=== PATIENT | female | born 1940 | race Caucasian/White ===

== ENCOUNTER → 2017-01-01 | Outpatient (CLI) | payer MEDICARE ==
[~2017-01-01] MED LIST: AC500T PO; AMIT10TA6 PO; DPAS20025 PO; FEXO180T PO; MTP100TCR PO; PNT40TEC PO; SMV10T PO; VERA240T98 PO
--- OUTSIDE RECORDS SUMMARY | 2017-01-01 16:04 | XMS REPORT | Continuity of Care Document ---
Author Author [facility] Organization [facility] Address Unknown Phone Unavailable Allergies Active Description Code Type Severity Reaction Onset Reported/Identified Relationship to Patient Clinical Status Yes No Known Drug Allergies [id number] Drug Allergy Unknown N/ A 06/08/2011 Medications Problems Date Dx Coded Attending Type Code Diagnosis Diagnosed By 06/11/2011 Ot 272.4 06/11/2011 Ot 401.9 06/11/2011 Ot 433.10 06/11/2011 Ot 434.91 06/11/2011 Ot 781.94 06/11/2011 Ot V12.59 03/01/2015 Ot V76.12 03/01/2015 Ot V76.12 03/01/2015 Ot V76.12 03/01/2015 Ot 793.82 03/01/2015 Ot V49.81 03/01/2015 Ot V76.12 03/01/2015 Ot V82.81 03/01/2015 Ot 793.89 03/01/2015 JÚNIOR KHAN Ot 793.80 03/01/2015 KEE CRAWFORD INDUSTRIAL CONTROLS TECHNICIAN Ot 793.80 03/01/2015 KEE CRAWFORD APRN Ot V67.9 04/16/2015 ISAIAS ELMORE MD Ot 793.89 04/16/2015 ISAIAS ELMORE MD Ot 793.89 07/20/2015 ISAIAS ELMORE MD Ot 785.1 07/23/2015 ISAIAS ELMORE MD Ot 785.1 08/25/2015 ISAIAS ELMORE MD Ot 785.1 Procedures Results Encounters ACCT No. Visit Date/Time Discharge Status Pt. Type Provider Facility Loc./Unit Complaint [id number] 06/25/2015 09:14:00 2014 00:01:00 DIS Outpatient ISAIAS ELMORE MD [facility] CARD [id number] 03/01/2015 14:02:00 2014 23:59:59 CLS Outpatient ISAIAS ELMORE MD [facility] RAD [id number] 12/16/2013 13:46:00 2013 23:59:59 CLS Outpatient KEE CRAWFORD APRN [facility] RAD [id number] 05/27/2013 14:37:00 2012 23:59:59 CLS Outpatient JÚNIOR KHAN [facility] RAD [id number] 11/25/2012 13:30:00 Document Registration [id number] 11/01/2012 11:08:00 Document Registration [id number] 10/26/2011 08:57:00 Document Registration [id number] 06/08/2011 09:11:00 Document Registration [id number] 10/25/2010 09:34:00 Document Registration [id number] 10/12/2009 09:06:00 Document Registration
--- NOTE | 2017-01-01 17:29 | Diagnostic Imaging Report ---
AP and lateral views of the left tibia and fibula. INDICATION: Injury. FINDINGS: There is no fracture, dislocation or radiopaque foreign body. The proximal and distal joints appear grossly unremarkable. IMPRESSION: Unremarkable exam. Dictated by: Dictated on workstation # [id number]
== END ==
LOC: RAD 16:00
PROVIDERS: ATTEND Nurse Practitioner
DX: S89.92XA Unspecified injury of left lower leg, initial encounter (principal); X58.XXXA Exposure to other specified factors, initial encounter; Y92.019 Unspecified place in single-family (private) house as the place of occurrence of the external cause; Y99.8 Other external cause status
CPT/HCPCS: 73590

== ENCOUNTER → 2017-06-13 | Outpatient (CLI) | payer MEDICARE ==
[~2017-06-13] MED LIST changes: +ACET-168 PO; +AMLO10TA2 PO; +AMOX500C2 PO; +APIX5TAB PO; +ASPI-808 PO; +ASPI-999 PO; +AZIT250T12 PO; +CALC-654 PO; +FEXO-46 PO; +GLUC1CAP37 PO; +LISI-552 PO; +METO-370 PO; +METO-395 PO; +MULT-1029 PO; +OMG1KC PO; +PANT40TA3 PO; +POTA10TA10 PO; +SIMV10TA3 PO; +TRIA1TAB5 PO; +VERA240C2 PO
--- NOTE | 2017-06-14 18:05 | Diagnostic Imaging Report ---
Bilateral screening mammogram 2D views with tomosynthesis The current study was also evaluated with a Computer Aided Detection (CAD) system. INDICATION: Screening. No current complaints stated on the questionnaire. COMPARISON: 03/01/2015. FINDINGS: The breasts are composed of scattered fibroglandular densities. There are benign-appearing calcifications seen. Circumscribed lesions less than 4 mm size in the center aspect of the right breast appear slightly more prominent compared to the prior exam likely related to fibrocystic change. Allowing for technique and positional differences, no suspicious change is seen. IMPRESSION: No suspicious change. ACR BI-RADS Category 2: Benign findings. Result letter will be mailed to the patient. Note: At least 10% of breast cancer is not imaged by mammography. Dictated by: Dictated on workstation # [id number]
== END ==
LOC: RAD 10:39
PROVIDERS: ATTEND Internal Medicine
DX: Z12.31 Encounter for screening mammogram for malignant neoplasm of breast (principal)
CPT/HCPCS: 77067

== ENCOUNTER 2017-07-25 16:43 | Emergency (ER) | payer MEDICARE ==
[~2017-07-25] VITALS: Ht 152.4 cm; Wt 72.6 kg
[~2017-07-25 16:43] MED LIST changes: -ACET-168 PO; -AMLO10TA2 PO; -AMOX500C2 PO; -APIX5TAB PO; -ASPI-808 PO; -ASPI-999 PO; -AZIT250T12 PO; -CALC-654 PO; -FEXO-46 PO; -GLUC1CAP37 PO; -LISI-552 PO; -METO-370 PO; -METO-395 PO; -MULT-1029 PO; -OMG1KC PO; -PANT40TA3 PO; -POTA10TA10 PO; -SIMV10TA3 PO; -TRIA1TAB5 PO; -VERA240C2 PO
--- NOTE | 2017-07-25 17:20 | ED Respiratory ---
General Chief Complaint: Cough/Cold/Flu Symptoms Stated Complaint: CHEST CONGESTION Source: patient Exam Limitations: no limitations History of Present Illness Time seen by provider: 17:15 Initial Comments Patient has ER by private conveyance with a chief complaint of approximately 10- 14 days presently worsening feeling of difficulty breathing and crackles in her chest. She denies wheezing, fevers, headache, nausea, vomiting, chest pain, diarrhea, or don't pain, dysuria. She says she has no prior COPD or lung history. She does not smoke. She denies any prior coronary artery disease. She has been coughing and producing some phlegm which improved after getting some Mucinex. She says she called her doctor's office and they recommended Mucinex. Allergies and Home Medications Allergies Coded Allergies: No Known Drug Allergies (Unverified , 06/08/11) Home Medications Acetaminophen 500 Mg Tablet, 500-1,000 MG PO Q4H PRN, (Reported) Amitriptyline Hcl 10 Mg Tablet, 20 MG PO HS, (Reported) Dipyridamole/Aspirin 1 Ea Cap, 1 CAP PO BID, (Reported) TAKE WITH BREAKFAST AND SUPPER Fexofenadine Hcl 180 Mg Tablet, 180 TAB PO DAILY PRN, (Reported) Metoprolol Succinate 100 Mg Tab.sr.24h, 100 MG PO DAILY, (Reported) Pantoprazole Sod 40 Mg Tab, 40 MG PO DAILY, (Reported) Simvastatin 10 Mg Tab, 10 MG PO DAILY, (Reported) Verapamil Hcl 240 Mg Tablet.sa, 240 MG PO DAILY, (Reported) Constitutional: No chills, No diaphoresis, No fever, No malaise EENTM: No ear discharge, No ear pain Respiratory: cough, dyspnea on exertion, No hemoptysis, phlegm, wheezing Cardiovascular: No chest pain, No palpitations, No vascular heart diseas Gastrointestinal: No abdominal pain, No constipation, No diarrhea, No nausea, No vomiting Genitourinary: No discharge, No dysuria Musculoskeletal: No back pain, No joint pain Skin: No pruritus, No rash Psychiatric/Neurological: Denies Headache, Denies Numbness, Denies Paresthesia Past Foksqab-Brskyb-Dbomes Hx Patient Social History Alcohol Use: Denies Use Recreational Drug Use: No Smoking Status: Never a Smoker Recent Foreign Travel: No Contact w/Someone Who Travel: No Reproductive System Hx Reproductive Disorders: No Physical Exam Vital Signs Vital Sign - Last 12Hours 07/25/17 17:18 Temp 97.9 Pulse 74 Resp 16 B/P (MAP) 170/79 Pulse Ox 95 O2 Delivery Room Air Capillary Refill : General Appearance: WD/WN, no apparent distress Eyes: Bilateral Eye Normal Inspection, Bilateral Eye PERRL, Bilateral Eye EOMI HEENT: PERRL/EOMI, normal ENT inspection, TMs normal, pharynx normal Neck: supple, normal inspection Respiratory: chest non-tender, no respiratory distress, rales (lower right lobe ), wheezing Cardiovascular: normal peripheral pulses, regular rate, rhythm, no edema Gastrointestinal: normal bowel sounds, non tender, soft Extremities: normal range of motion, no pedal edema, normal capillary refill Neurologic/Psychiatric: alert, oriented x 3 Skin: normal color, warm/dry Progress/Results/Core Measures Results/Orders My Orders Orders - TYLER AGUILAR BNP (07/25/17 17:20) Cbc With Automated Diff (07/25/17 17:20) Comprehensive Metabolic Panel (07/25/17 17:20) Magnesium (07/25/17 17:20) Troponin I (07/25/17 17:20) Chest Pa/Lat (2 View) (07/25/17 17:20) Lactic Acid Analyzer (07/25/17 17:20) Vital Signs/I&O Vital Sign - Last 12Hours 07/25/17 17:18 Temp 97.9 Pulse 74 Resp 16 B/P (MAP) 170/79 Pulse Ox 95 O2 Delivery Room Air Progress Note : Time: 17:51 Progress Note Patient with a right lower lobe infiltrate on x-ray and no indication for inpatient stay. Curb 65 1 point. We are going to try amoxicillin and azithromycin. Diagnostic Imaging Diagonstic Imaging: Xray Plain Films/CT/US/NM/MRI: chest Comments Right lower lobe infiltrate Reviewed: Reviewed by Me Departure Impression Impression: Primary Impression: Pneumonia Qualified Codes: J18.1 - Lobar pneumonia, unspecified organism Disposition: 01 HOME, SELF-CARE Condition: Stable Departure-Patient Inst. Decision time for Depature: 17:53 Referrals: ISAIAS ELMORE MD (PCP/Family) Primary Care Physician Patient Instructions: Pneumonia, Adult (DC) Add. Discharge Instructions: Please drink plenty of fluids and you may continue using the Mucinex. Take your antibiotics 1 capsule of amoxicillin 3 times a day and azithromycin 2 tablets tonight then one tablet a day until completion. If you're having high fevers or worsening shortness of air you should either return to your primary care physician or the ER which ever is more appropriate. While you're on these antibiotics you may want to take probiotics twice a day to prevent the diarrhea that is associated with antibiotics. All discharge instructions reviewed with patient and/or family. Voiced understanding. Scripts Azithromycin (Azithromycin) 250 Mg Tablet 250 MG PO UD, #6 TAB TAKE 2 TABLETS ON DAY ONE THEN TAKE 1 TABLET DAILY FOR FOUR MORE DAYS Prov: TYLER AGUILAR 07/25/17 Amoxicillin (Amoxicillin) 500 Mg Capsule 1000 MG PO TID for 7 Days, #21 CAP 0 Refills Prov: TYLER AGUILAR 07/25/17 Copy Copies To 1: ISAIAS ELMORE MD, TITUS J Jul 25, 2017 17:20
--- NOTE | 2017-07-25 17:48 | Diagnostic Imaging Report ---
INDICATION: Cough and wheezing. EXAM: PA and lateral views of the chest are obtained. COMPARISON is made to a study of 06/08/2011. FINDINGS: Overall heart size and pulmonary vascularity are within normal limits. There has been development of patchy infiltrate in the right perihilar and basilar regions with blunting of the right costophrenic sulcus. The left lung appears clear. IMPRESSION: Right basilar infiltrate likely represents pneumonitis or developing pneumonia. There may be a small amount of associated pleural fluid. Dictated by: Dictated on workstation # [id number]
[2017-07-25 17:59] LABS: BASOPHILS # (AUTO) 0.1 10^3/uL (0.0-0.1); BASOPHILS % (AUTO) 0 % (0-10); EOSINOPHILS # (AUTO) 0.2 10^3/uL (0.0-0.3); EOSINOPHILS % (AUTO) 2 % (0-10); LYMPHOCYTES % (AUTO) 15 % (12-44); MEAN CORPUSCULAR HEMOGLOBIN 30 PG (25-34); MEAN CORPUSCULAR HGB CONC 34 G/DL (32-36); MEAN CORPUSCULAR VOLUME 90 FL (80-99); MEAN PLATELET VOLUME 9.8 FL (7.4-10.4); MONOCYTES # (AUTO) 1.5 X 10^3 (0.0-1.0); MONOCYTES % (AUTO) 11 % (0-12); NEUTROPHILS # (AUTO) 9.7 X 10^3 (1.8-7.8); NEUTROPHILS % (AUTO) 72 % (42-75); PLATELET COUNT 301 10^3/uL (130-400); RED BLOOD COUNT 4.74 10^6/uL (4.35-5.85); RED CELL DISTRIBUTION WIDTH 13.1 % (10.0-14.5); WHITE BLOOD COUNT 13.4 10^3/uL (4.3-11.0)
[2017-07-25] MEDS ORDERED: AMOX500C2 PO (18:04)
[2017-07-25] MEDS ORDERED: AZIT250T5 PO (18:04)
[2017-07-25 18:17] LABS: ALANINE AMINOTRANSFERASE 20 U/L (0-55); ALBUMIN 3.9 GM/DL (3.2-4.5); ANION GAP 12 MMOL/L (5-14); ASPARTATE AMINO TRANSFERASE 21 U/L (5-34); BILIRUBIN,TOTAL 0.6 MG/DL (0.1-1.0); BLOOD UREA NITROGEN 10 MG/DL (7-18); BUN/CREATININE RATIO 13; CALCIUM 9.8 MG/DL (8.5-10.1); CARBON DIOXIDE 24 MMOL/L (21-32); CHLORIDE 101 MMOL/L (98-107); GFR ESTIMATED > 60; GLUCOSE 116 MG/DL (70-105); MAGNESIUM 2.2 MG/DL (1.8-2.4); POTASSIUM 4.2 MMOL/L (3.6-5.0); SODIUM 137 MMOL/L (135-145); TOTAL PROTEIN 7.6 GM/DL (6.4-8.2)
[2017-07-25 18:23] LABS: TROPONIN I < 0.30 NG/ML (<0.30)
[2017-07-25 19:21] VITALS: BP 161/87
== END 2017-07-25 19:21 | disposition home or self-care (01) ==
LOC: EDUNIT# 16:43 → ER 16:45
DX: J18.9 Pneumonia, unspecified organism (principal)
CPT/HCPCS: 36415; 71020; 80053; 83735; 83880; 84484; 85025; 99282

== ENCOUNTER → 2017-08-02 | Outpatient (CLI) | payer MEDICARE ==
[~2017-08-02] MED LIST changes: +AMOX500C2 PO; +AZIT250T5 PO
--- NOTE | 2017-08-02 12:33 | Diagnostic Imaging Report ---
INDICATION: Pneumonia. COMPARISON: 07/25/2017. FINDINGS: There is a right base consolidation and a right pleural effusion. There is cardiomegaly. The left lung is clear. There is no pneumothorax. The mediastinum is unremarkable. IMPRESSION: Increasing right basilar consolidation and a small right pleural effusion. Cardiomegaly. Dictated by: Dictated on workstation # [id number]
== END ==
LOC: RAD 10:03
PROVIDERS: ATTEND Nurse Practitioner
DX: J90 Pleural effusion, not elsewhere classified (principal); I51.7 Cardiomegaly
CPT/HCPCS: 71020

== ENCOUNTER → 2017-08-08 | Outpatient (CLI) | payer MEDICARE ==
[~2017-08-08] MED LIST changes: +ACET-168 PO; +AMLO10TA2 PO; +APIX5TAB PO; +ASPI-808 PO; +ASPI-999 PO; +AZIT250T12 PO; -AZIT250T5 PO; +CALC-654 PO; +FEXO-46 PO; +GLUC1CAP37 PO; +LISI-552 PO; +METO-370 PO; +METO-395 PO; +MULT-1029 PO; +OMG1KC PO; +PANT40TA3 PO; +POTA10TA10 PO; +SIMV10TA3 PO; +TRIA1TAB5 PO; +VERA240C2 PO
--- NOTE | 2017-08-08 20:27 | Diagnostic Imaging Report ---
PA and lateral views of the chest. INDICATION: Pneumonia. COMPARISON: 08/02/17. FINDINGS: There is small to moderate-sized pleural effusion and right basilar atelectasis or infiltrate that appears improved compared to 08/02/17. The left lung is clear. The heart size is mildly enlarged. No pneumothorax. IMPRESSION: Improving right basilar infiltrates or atelectasis and right pleural effusion. Dictated by: Dictated on workstation # [id number]
== END ==
LOC: RAD 15:15
PROVIDERS: ATTEND Nurse Practitioner
DX: J90 Pleural effusion, not elsewhere classified (principal); J18.9 Pneumonia, unspecified organism
CPT/HCPCS: 71020

== ENCOUNTER 2017-08-27 09:54 | Inpatient (IN) | payer MEDICARE ==
[~2017-08-27] VITALS: Ht 152.4 cm; Wt 75.4 kg
[~2017-08-27 09:54] MED LIST changes: -ACET-168 PO; -AMLO10TA2 PO; -APIX5TAB PO; -ASPI-808 PO; -ASPI-999 PO; -AZIT250T12 PO; +AZIT250T5 PO; -CALC-654 PO; -FEXO-46 PO; -GLUC1CAP37 PO; -LISI-552 PO; -METO-370 PO; -METO-395 PO; -MULT-1029 PO; -OMG1KC PO; -PANT40TA3 PO; -POTA10TA10 PO; -SIMV10TA3 PO; -TRIA1TAB5 PO; -VERA240C2 PO
[2017-08-27] MEDS ORDERED: ASPIRIN 81 MG CHEW (CHILDREN'S ASA) PO ONE (10:15)
--- NOTE | 2017-08-27 10:15 | ED Respiratory ---
General Chief Complaint: Respiratory Problems Stated Complaint: SOA/CHEST PRESSURE Source: patient, old records, other (personal physician) Exam Limitations: no limitations History of Present Illness Time seen by provider: 10:03 Initial Comments Patient has ER by private conveyance with a chief complaint of some chest pressure and shortness of breath and weakness today. About 4 weeks ago she was diagnosed and placed inpatient in this ER for a pneumonia. She had to have 2 more courses of outpatient antibiotics presumably azithromycin. She was attending her physician's office today because she went bowling this morning and discuss short of breath and even after resting could not get her breath back. She does not use oxygen at home. She does not have a history of coronary disease. She has no chest pain only pressure that was fleeting and is no longer here prior. She denies any nausea, numbness in her neck and jaw, shoulder or arm. She occasionally has tingling in her feet consistent with her history of peripheral neuropathy. She is not having hypothyroidism, diabetes but she does have hypertension and hypercholesterolemia. She's never a smoker nor does she have COPD or asthma. She's had no indigestion reflux or vomiting. She's felt constipated last few days on antibiotics that she took an erwn-goo-tswneim laxative and that helped yesterday. Allergies and Home Medications Allergies Coded Allergies: No Known Drug Allergies (Unverified , 08/27/17) Home Medications Acetaminophen 500 Mg Tablet, 500-1,000 MG PO Q4H PRN for PAIN-MILD, (Reported) Amitriptyline HCl 10 Mg Tablet, 10 MG PO BID, (Reported) Aspirin 325 Mg Tablet, 325 MG PO 1700, (Reported) Calcium Carbonate/Vitamin D3 1 Each Tablet, 1 TAB PO BID, (Reported) Fexofenadine HCl 180 Mg Tablet, 180 MG PO DAILY PRN for ALLERGIES, (Reported) Glucosa Solitario 2Kcl/Chondroitin Solitario 1 Each Capsule, 1 CAP PO BID, (Reported) Metoprolol Succinate 100 Mg Tab.er.24h, 100 MG PO HS, (Reported) Multivit-Min/FA/Lycopene/Lut 1 Each Tablet, 1 TAB PO DAILY, (Reported) [place] 3 Polyunsat Fatty Acids 1,000 Mg Cap, 1,000 MG PO BID, (Reported) Pantoprazole Sodium 40 Mg Tablet.dr, 40 MG PO DAILY, (Reported) Simvastatin 10 Mg Tablet, 10 MG PO HS, (Reported) Verapamil HCl 240 Mg Cap24h.pel, 240 MG PO DAILY, (Reported) Constitutional: No chills, No diaphoresis, No fever, No malaise EENTM: No ear discharge, No hearing loss, No eye pain, No tearing Respiratory: cough, dyspnea on exertion, phlegm, short of breath (at rest and on exertion) Cardiovascular: chest pain (chest pressure left side described as "tightness") , No Hx of Intervention, No palpitations, No syncope, No vascular heart diseas Gastrointestinal: No abdominal pain, No constipation, No diarrhea, No nausea, No vomiting Genitourinary: No discharge, No dysuria : No Musculoskeletal: No joint pain, No joint swelling Skin: No pruritus, No rash Psychiatric/Neurological: Denies Headache, Denies Numbness, Denies Paresthesia Past Lsztrdn-Pgjjuu-Pkhisd Hx Patient Social History Alcohol Use: Denies Use Recreational Drug Use: No Smoking Status: Never a Smoker 2nd Hand Smoke Exposure: No Recent Hopitalizations: No Seasonal Allergies Seasonal Allergies: No Surgeries History of Surgeries: Yes (cataracts) Respiratory History of Respiratory Disorde: No (relates some soa at home infrequently) Cardiovascular History of Cardiac Disorders: Yes Cardiac Disorders: High Cholesterol, Hypertension Neurological History of Neurological Disord: No Reproductive System Hx Reproductive Disorders: No Genitourinary History of Genitourinary Disor: No Gastrointestinal History of Gastrointestinal Di: No Endocrine History of Endocrine Disorders: No Psychosocial History of Psychiatric Problem: No Integumentary History of Skin or Integumenta: No Blood Transfusions History of Blood Disorders: No Physical Exam Vital Signs Vital Sign - Last 12Hours 08/27/17 10:01 Temp 97.0 Pulse 69 Resp 22 B/P (MAP) 170/97 Pulse Ox 97 O2 Delivery Nasal Cannula O2 Flow Rate 2.00 Capillary Refill : General Appearance: WD/WN, no apparent distress Eyes: Bilateral Eye Normal Inspection, Bilateral Eye PERRL, Bilateral Eye EOMI HEENT: PERRL/EOMI, normal ENT inspection, TMs normal, pharynx normal Neck: non-tender, supple, normal inspection Respiratory: chest non-tender, normal breath sounds, no respiratory distress, crackles (few base right) Cardiovascular: normal peripheral pulses, regular rate, rhythm, no edema Gastrointestinal: normal bowel sounds, non tender, soft Extremities: normal range of motion, non-tender, normal inspection, normal capillary refill Neurologic/Psychiatric: alert, oriented x 3 Skin: normal color, warm/dry Progress/Results/Core Measures Results/Orders Lab Results Laboratory Tests Test 08/27/17 10:15 08/27/17 10:30 Range/Units Urine Color YELLOW Urine Clarity CLEAR Urine pH 6 5-9 Urine Specific Porter 1.010 L 1.016-1.022 Urine Protein NEGATIVE NEGATIVE Urine Glucose (UA) NEGATIVE NEGATIVE Urine Ketones NEGATIVE NEGATIVE Urine Nitrite NEGATIVE NEGATIVE Urine Bilirubin NEGATIVE NEGATIVE Urine Urobilinogen NORMAL NORMAL MG/DL Urine Leukocyte Esterase 1+ H NEGATIVE Urine RBC (Auto) NEGATIVE NEGATIVE Urine RBC NONE /HPF Urine WBC 0-2 /HPF Urine Squamous Epithelial Cells 0-2 /HPF Urine Crystals NONE /LPF Urine Bacteria NEGATIVE /HPF Urine Casts NONE /LPF Urine Mucus NEGATIVE /LPF Urine Culture Indicated NO White Blood Count 9.8 4.3-11.0 10^3/uL Red Blood Count 4.36 4.35-5.85 10^6/uL Hemoglobin 12.9 11.5-16.0 G/DL Hematocrit 39 35-52 % Mean Corpuscular Volume 89 80-99 FL Mean Corpuscular Hemoglobin 30 25-34 PG Mean Corpuscular Hemoglobin Concent 33 32-36 G/DL Red Cell Distribution Width 13.5 10.0-14.5 % Platelet Count 200 130-400 10^3/uL Mean Platelet Volume 10.5 H 7.4-10.4 FL Neutrophils (%) (Auto) 71 42-75 % Lymphocytes (%) (Auto) 14 12-44 % Monocytes (%) (Auto) 13 H 0-12 % Eosinophils (%) (Auto) 1 0-10 % Basophils (%) (Auto) 0 0-10 % Neutrophils # (Auto) 6.9 1.8-7.8 X 10^3 Lymphocytes # (Auto) 1.4 1.0-4.0 X 10^3 Monocytes # (Auto) 1.3 H 0.0-1.0 X 10^3 Eosinophils # (Auto) 0.1 0.0-0.3 10^3/uL Basophils # (Auto) 0.0 0.0-0.1 10^3/uL Prothrombin Time 12.9 12.2-14.7 SEC INR Comment 1.0 0.8-1.4 Activated Partial Thromboplast Time 32 24-35 SEC Sodium Level 138 135-145 MMOL/L Potassium Level 4.0 3.6-5.0 MMOL/L Chloride Level 105 98-107 MMOL/L Carbon Dioxide Level 22 21-32 MMOL/L Anion Gap 11 5-14 MMOL/L Blood Urea Nitrogen 10 7-18 MG/DL Creatinine 0.72 0.60-1.30 MG/DL Estimat Glomerular Filtration Rate > 60 BUN/Creatinine Ratio 14 Glucose Level 111 H 70-105 MG/DL Calcium Level 8.9 8.5-10.1 MG/DL Magnesium Level 2.1 1.8-2.4 MG/DL Total Bilirubin 0.9 0.1-1.0 MG/DL Aspartate Amino Transf (AST/SGOT) 24 5-34 U/L Alanine Aminotransferase (ALT/SGPT) 30 0-55 U/L Alkaline Phosphatase 62 40-136 U/L Myoglobin 36.6 10.0-92.0 NG/ML Troponin I < 0.30 <0.30 NG/ML B-Type Natriuretic Peptide 292.4 H <100.0 PG/ML Total Protein 6.9 6.4-8.2 GM/DL Albumin 3.8 3.2-4.5 GM/DL My Orders Orders - LAURENTYLER J Cbc With Automated Diff (08/27/17 10:10) Magnesium (08/27/17 10:10) Chest 1 View, Ap/Pa Only (08/27/17 10:10) Ekg Tracing (08/27/17 10:10) Cardiac Profile 1 (08/27/17 10:10) Comprehensive Metabolic Panel (08/27/17 10:10) Myoglobin Serum (08/27/17 10:10) Protime With Inr (08/27/17 10:10) Partial Thromboplastin Time (08/27/17 10:10) O2 (08/27/17 10:10) Monitor-Rhythm Ecg Trace Only (08/27/17 10:10) Lipid Panel (08/28/17 06:00) Aspirin Chewable Tablet (Baby Aspirin Ch (08/27/17 10:15) Saline Lock/Iv-Start (08/27/17 10:10) BNP (08/27/17 10:10) Ua Culture If Indicated (08/27/17 10:10) Medications Given in ED Current Medications Medications Dose Ordered Sig/Sean Route Start Time Stop Time Status Last Admin Dose Admin Aspirin 243 mg ONCE ONCE PO 08/27/17 10:15 08/27/17 10:16 DC 08/27/17 11:03 243 MG Vital Signs/I&O Vital Sign - Last 12Hours 08/27/17 08/27/17 10:01 10:10 Temp 97.0 Pulse 69 Resp 22 B/P (MAP) 170/97 Pulse Ox 97 97 O2 Delivery Nasal Cannula Nasal Cannula O2 Flow Rate 2.00 2.00 ECG Initial ECG Impression Date: Aug 27, 2017 Initial ECG Impression Time: :17 Initial ECG Rate: 81 Initial ECG Rhythm: A Fib/Flutter Initial ECG Intervals: QT (428 ms) Initial ECG Impression: Atrial Fibrillation Initial ECG Comparisson: Changed Comment 2010 EKG in sinus rhythm. No T-wave elevation or depression. Diagnostic Imaging Diagonstic Imaging: Xray Plain Films/CT/US/NM/MRI: chest Comments 1 view chest shows some right lower opacity either consolidation or infiltrate. Worse compared to August 08, 2017 x-ray. Reviewed: Reviewed by Me Consults Consults : Consulting Physician: BING EDWARD MD [facility] Consults Notes 1050: Discussed the case and findings with Dr. Varela and he recommends L acquits 5 mg now then twice a day and send her to the floor. Departure Communication (Admissions) Time/Spoke to Admitting Phy: 10:50 Communication [place]: Discussed the case imaging lab and clinical findings and he says that there is no white count or fever did not bother treating any infiltrates seen on x-ray. He will see the patient. Impression Impression: Primary Impression: Atrial fibrillation with normal ventricular rate Additional Impression: Chest tightness or pressure Disposition: ADMITTED INPATIENT Condition: Stable Admissions Decision to Admit Reason: Admit from ER (General) Decision to Admit/Date: Aug 27, 2017 Time/Decision to Admit Time: 10:54 Departure-Patient Inst. Referrals: ISAIAS ELMORE MD (PCP/Family) Primary Care Physician Copy Copies To 1: BING EDWARD MD [facility] CCDS Copies To 2: ISAIAS ELMORE MD, TITUS J Aug 27, 2017 10:15
[2017-08-27 10:20] LABS: BILIRUBIN,URINE NEGATIVE (NEGATIVE); KETONES,URINE NEGATIVE (NEGATIVE); LEUKOCYTE ESTERASE ,URINE 1+ (NEGATIVE); NITRITE,URINE NEGATIVE (NEGATIVE); PH,URINE 6 (5-9); PROTEIN,URINE NEGATIVE (NEGATIVE); UROBILINOGEN,URINE NORMAL (NORMAL)
[2017-08-27 10:33] LABS: SQUAMOUS EPITHELIAL CELL,UR 0-2 /HPF; WBC,URINE 0-2 /HPF
[2017-08-27 10:39] LABS: BASOPHILS % (AUTO) 0 % (0-10); EOSINOPHILS # (AUTO) 0.1 10^3/uL (0.0-0.3); EOSINOPHILS % (AUTO) 1 % (0-10); LYMPHOCYTES # (AUTO) 1.4 X 10^3 (1.0-4.0); LYMPHOCYTES % (AUTO) 14 % (12-44); MEAN CORPUSCULAR HEMOGLOBIN 30 PG (25-34); MEAN CORPUSCULAR HGB CONC 33 G/DL (32-36); MEAN CORPUSCULAR VOLUME 89 FL (80-99); MEAN PLATELET VOLUME 10.5 FL (7.4-10.4); MONOCYTES # (AUTO) 1.3 X 10^3 (0.0-1.0); MONOCYTES % (AUTO) 13 % (0-12); NEUTROPHILS # (AUTO) 6.9 X 10^3 (1.8-7.8); NEUTROPHILS % (AUTO) 71 % (42-75); PLATELET COUNT 200 10^3/uL (130-400); RED BLOOD COUNT 4.36 10^6/uL (4.35-5.85); RED CELL DISTRIBUTION WIDTH 13.5 % (10.0-14.5); WHITE BLOOD COUNT 9.8 10^3/uL (4.3-11.0)
[2017-08-27 10:50] LABS: PROTHROMBIN TIME PATIENT 12.9 SEC (12.2-14.7)
[2017-08-27 10:59] LABS: ALANINE AMINOTRANSFERASE 30 U/L (0-55); ALBUMIN 3.8 GM/DL (3.2-4.5); ANION GAP 11 MMOL/L (5-14); ASPARTATE AMINO TRANSFERASE 24 U/L (5-34); BILIRUBIN,TOTAL 0.9 MG/DL (0.1-1.0); BLOOD UREA NITROGEN 10 MG/DL (7-18); BUN/CREATININE RATIO 14; CALCIUM 8.9 MG/DL (8.5-10.1); CARBON DIOXIDE 22 MMOL/L (21-32); CHLORIDE 105 MMOL/L (98-107); CREATININE SERUM 0.72 MG/DL (0.60-1.30); GFR ESTIMATED > 60; GLUCOSE 111 MG/DL (70-105); MAGNESIUM 2.1 MG/DL (1.8-2.4); SODIUM 138 MMOL/L (135-145); TOTAL PROTEIN 6.9 GM/DL (6.4-8.2)
[2017-08-27 11:05] LABS: MYOGLOBIN SERUM 36.6 NG/ML (10.0-92.0)
--- NOTE | 2017-08-27 11:07 | Diagnostic Imaging Report ---
Portable upright radiograph of the chest. INDICATION: Shortness of breath, pneumonia. COMPARISON: 08/08/2017. FINDINGS: The heart is enlarged with background vascular congestion. There are right basilar infiltrates and small effusion increased from the previous exam. No significant effusion on the left. No pneumothorax. The mediastinum and angela appear unremarkable. IMPRESSION: Cardiomegaly with pulmonary vascular congestion and increased right basilar infiltrate with a small effusion. The findings are probably secondary to CHF with possible superimposed right basilar pneumonia. Dictated by: Dictated on workstation # [id number]
[2017-08-27] MEDS ORDERED: APIXABAN 5 MG (ELIQUIS) TABLET PO ONE (11:15)
[2017-08-27 11:45] VITALS: BP 156/78
[2017-08-27 11:50] VITALS: BP 156/78
[2017-08-27] MEDS ORDERED: meTOprolol SUCCINATE 100 MG (TOPROL XL) TAB PO SCH (12:13)
[2017-08-27] MEDS ORDERED: ACETAMINOPHEN 500 MG TAB (TYLENOL) PO PRN (12:15)
[2017-08-27] MEDS ORDERED: NITROGLYCERIN 0.4 MG SL TABS BTL 25'S SL PRN (12:15)
[2017-08-27] MEDS ORDERED: ONDANSETRON 4 MG/2 ML (SDV) Z0FRAN IV PRN (12:15)
[2017-08-27] MEDS ORDERED: CATHETER FLUSH 10 ML SYR IV PRN (12:15)
[2017-08-27] MEDS: lisINopril 5 MG (PRINIVIL) TABLET PO SCH (13:17)
[2017-08-27] MEDS: CATHETER FLUSH 10 ML SYR IV SCH ×2 (13:17→20:03)
[2017-08-27] MEDS ORDERED: VERA240C2 PO (14:32)
[2017-08-27] MEDS ORDERED: METO-274 PO (14:32)
[2017-08-27] MEDS ORDERED: AMIT10TA6 PO (14:32)
[2017-08-27] MEDS ORDERED: SIMV10TA3 PO (14:32)
[2017-08-27] MEDS ORDERED: PANT40TA3 PO (14:32)
[2017-08-27] MEDS ORDERED: ACET-168 PO (14:36)
[2017-08-27] MEDS ORDERED: ASPI-808 PO (14:36)
[2017-08-27] MEDS ORDERED: CALC-654 PO (14:38)
[2017-08-27] MEDS ORDERED: GLUC1CAP37 PO (14:38)
[2017-08-27] MEDS ORDERED: MULT-1029 PO (14:39)
[2017-08-27] MEDS ORDERED: OMG1KC PO (14:39)
[2017-08-27] MEDS ORDERED: FEXO-46 PO (14:45)
[2017-08-27] MEDS ORDERED: INFLUENZA TRIvalent 2017-2018 0.5 ML/45 MCG SYR IM ONE (15:30)
--- NOTE | 2017-08-27 15:43 | Consultation-Cardiology ---
HPI-Cardiology Cardiology Consultation: Date of Consultation 08/27/17 Time Seen by Provider: 15:30 Date of Admission 08-27-17 Attending Physician Sami Chandra MD Admitting Physician Levi Cline MD Consulting Physician Michelle Perez MD HPI: Chief Complaint: A-fib Chest discomfort Ms. Ross is a 76 year old female who has been admitted to 426 from the ED. She reports she recently has been undergoing out pt treatment by her PCP for pneumonia. She states she has had increasing shortness of breath over the course of the last few days. She reports a few days ago she had bilat ankle swelling. She reports abdominal bloating. She does report episodes of chest pressure which has been present for a few months. She states the discomfort is mid-sternal. It does not radiate. It is localized to the mid-chest area. It lasts for a few minutes. It is not r/t activity or emotional stress. She reports she has been having palpitations for several years. The episodes can last for a few minutes. She describes it as a fluttering sensation. She is currently not reporting any CP. She does not report any syncope or near syncope. No c/o fever or chills. She is not a good historian. Multiple family are currently at the bedside. Review of Systems-Cardiology Review of Systems Constitutional: As described under HPI, No As described under HPI, No chills, No fever, No lightheadedness Eyes: No blindness, No blurred vision, No contact lenses, No drainage, No decreased acuity, No foreign body sensation, No pain, No vision change Ears/Nose/Throat: No chronic hearing loss, No ear discharge, No ear pain, No nasal drainage, No ulcerations Respiratory: As described under HPI Cardiovascular: As described under HPI Gastrointestinal: abdomen distended, No abdominal pain, No blood streaked bowels, No constipation, No diarrhea, No nausea, No vomiting, No stool coloration changes Genitourinary: No burning, No dysuria, No discharge, No frequency, No flank pain, No hematuria, No urgency : No Skin: No rash, No skin related problems, No ulcerations Psychiatric/Neurological: No anxiety, No depression, No seizure, No focal weakness, No syncope Hematologic: No bleeding abnormalities KWU-Fgcyqm-Pymybo Hx Patient Social History Alcohol Use: Denies Use Recreational Drug Use: No Smoking Status: Never a Smoker 2nd Hand Smoke Exposure: No Recent Foreign Travel: No Recent Infectious Disease Expo: No Hospitalization with Isolation: Denies Physical Abuse Screen: No Sexual Abuse: No Immunizations Up To Date Date of Pneumonia Vaccine: Aug 26, 2016 Past Medical History PMH As described under Assessment. Family Medical History Family Medical History: She reports her mother and father both had strokes. She reports her mother had atrial fibrillation and a pacemaker. Family History: Allergies and Home Medications Allergies Coded Allergies: No Known Drug Allergies (Unverified , 08/27/17) Home Medications Acetaminophen 500 Mg Tablet, 500-1,000 MG PO Q4H PRN for PAIN-MILD, (Reported) Amitriptyline HCl 10 Mg Tablet, 10 MG PO BID, (Reported) Aspirin 325 Mg Tablet, 325 MG PO 1700, (Reported) Calcium Carbonate/Vitamin D3 1 Each Tablet, 1 TAB PO BID, (Reported) Fexofenadine HCl 180 Mg Tablet, 180 MG PO DAILY PRN for ALLERGIES, (Reported) Glucosa Solitario 2Kcl/Chondroitin Solitario 1 Each Capsule, 1 CAP PO BID, (Reported) Metoprolol Succinate 100 Mg Tab.er.24h, 100 MG PO HS, (Reported) Multivit-Min/FA/Lycopene/Lut 1 Each Tablet, 1 TAB PO DAILY, (Reported) [place] 3 Polyunsat Fatty Acids 1,000 Mg Cap, 1,000 MG PO BID, (Reported) Pantoprazole Sodium 40 Mg Tablet.dr, 40 MG PO DAILY, (Reported) Simvastatin 10 Mg Tablet, 10 MG PO HS, (Reported) Verapamil HCl 240 Mg Cap24h.pel, 240 MG PO DAILY, (Reported) Physical Exam-Cardiology Physical Exam Vital Signs/I&O Vital Sign - Last 12Hours 08/27/17 08/27/17 08/27/17 08/27/17 10:01 10:10 11:03 11:45 Temp 97.0 97.0 97.2 Pulse 69 74 Resp 22 20 B/P (MAP) 170/97 156/78 Pulse Ox 97 97 94 O2 Delivery Nasal Cannula Nasal Cannula Room Air O2 Flow Rate 2.00 2.00 08/27/17 08/27/17 08/27/17 11:50 11:50 13:00 Temp 97.2 Pulse 74 73 Resp 20 B/P (MAP) 156/78 Pulse Ox 94 O2 Delivery Room Air Room Air Intake and Output 08/28/17 00:00 Intake Total 300 ml Output Total 0 ml Balance 300 ml Capillary Refill : Less Than 3 SecondsLess Than 3 Seconds Constitutional: AAO x 3 HEENT: PERRL, No discharge, hearing is well preserved, oral hygience is good, No ulceration, No xanthelasmas are seen Neck: No carotid bruit, carotid pulses are 2 + bilaterally Respiratory: No accessory muscle use, No respiratory distress, chest expansion is symmetric, chest is bilaterally symmetric, other (diminished bases bilat) Cardiovascular: irregularly irregular, No JVD, S1 and S2, systolic murmur Gastrointestinal: No tender, soft, round, audible bowel sounds Rectal: deferred Extremities: no lower extremity edema bilateral Neurologic/Psychiatric: grossly intact Skin: No rash, No ulcerations Data Review Labs Laboratory Tests 08/27/17 10:15: Urine Color YELLOW, Urine Clarity CLEAR, Urine pH 6, Urine Specific Band[place] 1.010L, Urine Protein NEGATIVE, Urine Glucose (UA) NEGATIVE, Urine Ketones NEGATIVE, Urine Nitrite NEGATIVE, Urine Bilirubin NEGATIVE, Urine Urobilinogen NORMAL, Urine Leukocyte Esterase 1+H, Urine RBC (Auto) NEGATIVE, Urine RBC NONE , Urine WBC 0-2, Urine Squamous Epithelial Cells 0-2, Urine Crystals NONE, Urine Bacteria NEGATIVE, Urine Casts NONE, Urine Mucus NEGATIVE, Urine Culture Indicated NO 08/27/17 10:30: White Blood Count 9.8, Red Blood Count 4.36, Hemoglobin 12.9, Hematocrit 39, Mean Corpuscular Volume 89, Mean Corpuscular Hemoglobin 30, Mean Corpuscular Hemoglobin Concent 33, Red Cell Distribution Width 13.5, Platelet Count 200, Mean Platelet Volume 10.5H, Neutrophils (%) (Auto) 71, Lymphocytes (%) (Auto) 14 , Monocytes (%) (Auto) 13H, Eosinophils (%) (Auto) 1, Basophils (%) (Auto) 0, Neutrophils # (Auto) 6.9, Lymphocytes # (Auto) 1.4, Monocytes # (Auto) 1.3H, Eosinophils # (Auto) 0.1, Basophils # (Auto) 0.0, Prothrombin Time 12.9, INR Comment 1.0, Activated Partial Thromboplast Time 32, Sodium Level 138, Potassium Level 4.0, Chloride Level 105, Carbon Dioxide Level 22, Anion Gap 11, Blood Urea Nitrogen 10, Creatinine 0.72, Estimat Glomerular Filtration Rate > 60 , BUN/Creatinine Ratio 14, Glucose Level 111H, Calcium Level 8.9, Magnesium Level 2.1, Total Bilirubin 0.9, Aspartate Amino Transf (AST/SGOT) 24, Alanine Aminotransferase (ALT/SGPT) 30, Alkaline Phosphatase 62, Myoglobin 36.6, Troponin I < 0.30, B-Type Natriuretic Peptide 292.4H, Total Protein 6.9, Albumin 3.8 Radiology NAME: ZAIDA ROSS [facility] REC#: [id number] PT STATUS: ADM IN : 1940 PHYSICIAN: TYLER AGUILAR MD ADMIT DATE: 08/27/17 Signed Date of Exam: 08/27/17 CHEST 1 VIEW, AP/PA ONLY Portable upright radiograph of the chest. INDICATION: Shortness of breath, pneumonia. COMPARISON: 08/08/2017. FINDINGS: The heart is enlarged with background vascular congestion. There are right basilar infiltrates and small effusion increased from the previous exam. No significant effusion on the left. No pneumothorax. The mediastinum and angela appear unremarkable. IMPRESSION: Cardiomegaly with pulmonary vascular congestion and increased right basilar infiltrate with a small effusion. The findings are probably secondary to CHF with possible superimposed right basilar pneumonia. Dictated by: Dictated on workstation # [id number] Dict: 08/27/17 1103 Trans: 08/27/17 1122 Interpreted by: DURAN MOLINA MD Electronically signed by: DURAN MOLINA MD 08/27/17 1122 ECG Impression ECG Initial ECG Impression: Atrial Fibrillation A/P-Cardiology Assessment/Admission Diagnosis A-fib first diagnosed on 08/26/17, onset undetermined (reports palpitations for several years) - rate controlled Recent pneumonia - managed as out pt by PCP Dyspnea likely multi-factorial (pneumonia, a-fib, CHF) Ac CHF, likely diastolic H/O non-hemorrhagic CVA in 2010 Mild calcified bilat carotid plaque with R external carotid occlusion - per u/s of at [facility] LVEF 65%. Mild aortic and tricuspid regurg; mild to mod MVR; PASP approx 35- 40mmHg - per echo of May 2011 HTN HLP - statin tx NSR with multi-focal PVC's per 48 hour Holter of June [address] Monroy Discussion and Recomendations A-fib of undetermined length of time. Currently a-fib with a controlled rate. We advise OAC with Eliquis for stroke prophylaxis. She has a h/o non- hemorrhagic CVA in 2010 for which she reports she has been on ASA 325 mg. She has a h/o carotid dz per carotid u/s of May 2011. Therefore, we will continue ASA tx, but decrease it to 81 mg daily to reduce her risk of bleeding. She has a h/o valvular disease for which we advise echocardiogram to evaluate valvular status. She is reporting chest discomfort and has multiple risk factors as listed above. We advise MPI to evaluate coronary perfusion. We have continued her Toprol XL 100mg. We will continue Verapamil (home medication). We will continue statin tx. She reports exertional dyspnea likely multifactorial. Pneumonia management per medical services. Other recommendations as listed above. We would like to thank medical services for this consult. Further recommendations will be based on her hospital course. This consult is being scribed by Elham Cheung APRN on behalf of Dr. Perez after discussion regarding plan of care. Clinical Quality Measures DVT/VTE Risk/Contraindication: Risk Factor Score Per Nursin RFS Level Per Nursing on Admit: 2=Moderate Physician Assessment Physician Assessment Lungs: good bilat air entry Cor: irreg Ext: no c/c/e A&R * As documented in our note above that I updated (italics) and as noted below * I discussed with her the pathophys of A Fib and our diagnostic and treatment plan * Continuing bb for rate control * Hold dilt to avoid bradycardia * Added apixaban for rate control * Add amlodipine for bp control * Further recs based on hosp course DERRICK CHEUNG RESIDENTIAL CAREGIVER Aug 27, 2017 15:43 MICHELLE EPREZ MD FACP FAC CCDS Aug 27, 2017 16:55
[2017-08-27 16:00] VITALS: BP 160/70
[2017-08-27] MEDS ORDERED: amLODIPine 5 MG (NORVASC) TAB PO NR (17:00)
[2017-08-27] MEDS: APIXABAN 5 MG (ELIQUIS) TABLET PO SCH (20:02)
[2017-08-27] MEDS: AMITRIPTYLINE 10 MG (ELAVIL) TAB PO SCH (20:02)
[2017-08-27] MEDS: ATORVASTATIN 40 MG (LIPITOR) TABLET PO SCH (20:02)
[2017-08-27 20:11] VITALS: BP 139/63
[2017-08-28 00:25] VITALS: BP 145/66
[2017-08-28 04:43] VITALS: BP 123/64
[2017-08-28] MEDS: CATHETER FLUSH 10 ML SYR IV SCH ×3 (05:38→22:18)
[2017-08-28 06:26] LABS: BASOPHILS % (AUTO) 1 % (0-10); EOSINOPHILS # (AUTO) 0.1 10^3/uL (0.0-0.3); EOSINOPHILS % (AUTO) 2 % (0-10); LYMPHOCYTES # (AUTO) 1.9 X 10^3 (1.0-4.0); LYMPHOCYTES % (AUTO) 24 % (12-44); MEAN CORPUSCULAR HEMOGLOBIN 30 PG (25-34); MEAN CORPUSCULAR HGB CONC 33 G/DL (32-36); MEAN CORPUSCULAR VOLUME 90 FL (80-99); MEAN PLATELET VOLUME 10.5 FL (7.4-10.4); MONOCYTES # (AUTO) 1.1 X 10^3 (0.0-1.0); MONOCYTES % (AUTO) 13 % (0-12); NEUTROPHILS # (AUTO) 4.9 X 10^3 (1.8-7.8); NEUTROPHILS % (AUTO) 61 % (42-75); PLATELET COUNT 197 10^3/uL (130-400); RED BLOOD COUNT 4.18 10^6/uL (4.35-5.85); RED CELL DISTRIBUTION WIDTH 13.6 % (10.0-14.5)
[2017-08-28 06:47] LABS: ANION GAP 8 MMOL/L (5-14); BLOOD UREA NITROGEN 8 MG/DL (7-18); BUN/CREATININE RATIO 11; CALCIUM 8.7 MG/DL (8.5-10.1); CARBON DIOXIDE 25 MMOL/L (21-32); CHLORIDE 107 MMOL/L (98-107); CHOLESTEROL 124 MG/DL (< 200); DIRECT LDL 65 MG/DL (1-129); GFR ESTIMATED > 60; GLUCOSE 102 MG/DL (70-105); MAGNESIUM 2.1 MG/DL (1.8-2.4); POTASSIUM 3.9 MMOL/L (3.6-5.0); SODIUM 140 MMOL/L (135-145); TRIGLYCERIDES 106 MG/DL (<150); VLDL CHOLESTEROL 21 MG/DL (5-40)
[2017-08-28 07:10] LABS: THYROID STIMULATING HORMONE 1.92 UIU/ML (0.35-4.94)
--- NOTE | 2017-08-28 08:00 | Diagnostic Imaging Report ---
INDICATION: Acute onset atrial fibrillation with dyspnea PA and lateral views of the chest are obtained. Comparison is made to study of one day earlier. Heart size and pulmonary vascularity are at the upper limits of normal. There has been mild increase in blunting of right costophrenic sulcus. No pneumothorax is seen. IMPRESSION: Mild increase in right pleural fluid with heart size and pulmonary vascularity at the upper limits of normal. Dictated by: Dictated on workstation # [id number]
[2017-08-28] MEDS ORDERED: REGADENOSON 0.4 MG/5 ML SYR (LEXISCAN) IV ONE ×2 (08:56→09:45)
[2017-08-28] MEDS ORDERED: amLODIPine 5 MG (NORVASC) TAB PO SCH (09:00)
[2017-08-28] MEDS ORDERED: ASPIRIN 325 MG (5 GR) TABLET PO SCH (09:00)
[2017-08-28] MEDS ORDERED: ASPIRIN E.C. 325 MG (ECOTRIN) TABLET PO SCH (09:00)
[2017-08-28 10:30] VITALS: BP 167/77
--- NOTE | 2017-08-28 10:39 | Progress Note-Cardiology ---
Cardiology SOAP Progress Note Objective: I&O/Vital Signs Vital Sign - Last 12Hours 08/28/17 08/28/17 08/28/17 08/28/17 07:00 09:00 12:00 12:00 Temp 97.8 97.8 Pulse 60 70 70 Resp 20 20 B/P (MAP) 181/74 181/74 Pulse Ox 90 90 O2 Delivery Room Air Room Air Room Air 08/28/17 13:04 Pulse 65 Intake and Output 08/29/17 00:00 Intake Total 660 ml Output Total 1500 ml Balance -840 ml Weight (Pounds): 166 Weight (Ounces): 2.0 Weight (Calculated Kilograms): 75.545250 Constitutional: AAO x 3 Respiratory: No accessory muscle use, No respiratory distress, chest expansion is symmetric, chest is bilaterally symmetric, other (diminished bases bilat) Cardiovascular: irregularly irregular, No JVD, S1 and S2, systolic murmur Gastrointestional: No tender, soft, round, audible bowel sounds Extremities: no lower extremity edema bilateral Neurologic/Psychiatric: grossly intact Skin: No rash, No ulcerations Results/Procedures: Labs Laboratory Tests 08/28/17 06:05: White Blood Count 8.0, Red Blood Count 4.18L, Hemoglobin 12.4, Hematocrit 38, Mean Corpuscular Volume 90, Mean Corpuscular Hemoglobin 30, Mean Corpuscular Hemoglobin Concent 33, Red Cell Distribution Width 13.6, Platelet Count 197, Mean Platelet Volume 10.5H, Neutrophils (%) (Auto) 61, Lymphocytes (%) (Auto) 24 , Monocytes (%) (Auto) 13H, Eosinophils (%) (Auto) 2, Basophils (%) (Auto) 1, Neutrophils # (Auto) 4.9, Lymphocytes # (Auto) 1.9, Monocytes # (Auto) 1.1H, Eosinophils # (Auto) 0.1, Basophils # (Auto) 0.0, Sodium Level 140, Potassium Level 3.9, Chloride Level 107, Carbon Dioxide Level 25, Anion Gap 8, Blood Urea Nitrogen 8, Creatinine 0.70, Estimat Glomerular Filtration Rate > 60, BUN/ Creatinine Ratio 11, Glucose Level 102, Calcium Level 8.7, Magnesium Level 2.1, Triglycerides Level 106, Cholesterol Level 124, LDL Cholesterol Direct 65, VLDL Cholesterol 21, HDL Cholesterol 44, Thyroid Stimulating Hormone (TSH) 1.92 Procedures NAME: ZAIDA ROSS [facility] REC#: [id number] PT STATUS: ADM IN : 1940 PHYSICIAN: AMBROCIO GARCIA MD ADMIT DATE: 08/27/17 Signed Date of Exam: 08/28/17 CHEST PA/LAT (2 VIEW) INDICATION: Acute onset atrial fibrillation with dyspnea PA and lateral views of the chest are obtained. Comparison is made to study of one day earlier. Heart size and pulmonary vascularity are at the upper limits of normal. There has been mild increase in blunting of right costophrenic sulcus. No pneumothorax is seen. IMPRESSION: Mild increase in right pleural fluid with heart size and pulmonary vascularity at the upper limits of normal. Dictated by: Dictated on workstation # [id number] Dict: 08/28/17 0751 Trans: 08/28/17 0800 Interpreted by: LA CHAPMAN MD Electronically signed by: LA CHAPMAN MD 08/28/17 0800 A/P: Assessment: Dyspnea likely multi-factorial (see below) A-fib first diagnosed on 08/26/17 and found to be associated with bradycardia, onset undetermined Ac CHF, likely diastolic, now clinically compensated Reports h/o sleep apnea TSH 1.92 on 08-28-17 Echo of 08/28/17: LVEF 60-65%, PASP 50-60 mmHg, mod TR, mild to mod MR, mild AI MPI of 08/28/17: no ischemia or infarction, normal LVEF H/O non-hemorrhagic CVA in 2010 Mild calcified bilat carotid plaque with R external carotid occlusion - per u/s of at [facility] HTN with impaired control after d/c verapamil and reduction in dose of Toprol XL HLP - statin tx NSR with multi-focal PVC's per 48 hour Holter of June [address] Monroy Plan: A-fib with a controlled rate. Continue OAC with Eliquis for stroke prophylaxis. She has a h/o valvular disease for which we advise echocardiogram to evaluate valvular status. MPI today to evaluate coronary perfusion. Will hold off on Verapamil d/t some relative bradycardia documented and we will reduce the dose of Toprol to 50mg Norvasc for blood pressure control Continue tele Monitor lab Physician Assessment Physician Assessment Shortness of breath better today. No cp or palp or syncope Lungs: marialuisa Cor: irreg Ext: no c/c/e A&R * As documented in our note above that I updated (italics) and as noted belos * Bradycardia likely contributing to symptoms. Accordingly, verapamil d/c'd and Toprol XL reduced * These changes have raised bp. To control that we have added amlodipine and Dyazide and have increased lisinopril * I had a long and detailed discussion with her, her son, and her daughter regarding our findings (see above) and our treatment plan * We discussed the rationale, pros, and cons of oral anticoag * Increase activity * Monitor bp * Would need to continue f/u on an outpatient basis * Advised sleep eval and treatment of sleep apnea DERRICK MASON [facility] Aug 28, 2017 10:39 BING EDWARD MD [facility] Aug 28, 2017 17:11
[2017-08-28] MEDS ORDERED: meTOproloL SUCCINATE 50 MG (TOPROL XL) TAB PO NR (10:45)
[2017-08-28] MEDS: APIXABAN 5 MG (ELIQUIS) TABLET PO SCH ×2 (11:42→20:12)
[2017-08-28] MEDS: lisINopril 5 MG (PRINIVIL) TABLET PO SCH (11:42)
[2017-08-28] MEDS: AMITRIPTYLINE 10 MG (ELAVIL) TAB PO SCH ×2 (11:43→20:11)
[2017-08-28] MEDS: ASPIRIN 81 MG CHEW (CHILDREN'S ASA) PO SCH (11:43)
[2017-08-28 12:00] VITALS: BP 181/74
--- NOTE | 2017-08-28 13:33 | History & Physical-Hospitalist ---
HPI History of Present Illness: HPI/Chief Complaint The patient is a 76-year-old female patient of Dr. ALBAN Cline. She presented to the emergency room yesterday with a complaint of palpitations and shortness of breath. She reported that she had been to bowling and had been very short of breath and distressed. She decided at that point in time that she needed to be seen. Interestingly she had developed a cough and was seen in the emergency room on 07/25 and given oral treatment for apparent atypical pneumonia. She completed 2 courses of therapy but was not completely better. She gives no history of previous atrial fibrillation. She was aware of palpitations for several days prior to this presentation. In examining his old records I was able to determine by virtue of a Holter monitor that she had a sinus rhythm in 2014. She also gives a history of a stroke several years ago. She denies any chest pain or other symptoms suggesting angina Date Seen 08/28/17 Time Seen by Provider: 13:28 Attending Physician Ambrocio Garcia MD PCP Levi Cline MD Referring Physician BING EDWARD MD FACP FAC CCDS Date of Admission Aug 27, 2017 at 11:00 Home Medications & Allergies Home Medications Reviewed patient Home Medication Reconciliation Form Allergies Allergies Coded Allergies No Known Drug Allergies (Nlmeoaxwlo50/2/17) Past Ixkhadb-Uulaks-Iahotc Hx Patient Social History Alcohol Use: Denies Use Recreational Drug Use: No Smoking Status: Never a Smoker 2nd Hand Smoke Exposure: No Physical Abuse Screen: No Sexual Abuse: No Recent Foreign Travel: No Contact w/other who traveled: No Recent Hopitalizations: No Recent Infectious Disease Expo: No Immunizations Up To Date Date of Pneumonia Vaccine: Aug 26, 2016 Seasonal Allergies Seasonal Allergies: No Surgeries Yes (cataracts) Respiratory Yes (SOA) Currently Using CPAP: No Currently Using BIPAP: No Cardiovascular Yes High Cholesterol, Hypertension Neurological No Reproductive System Hx Reproductive Disorders: No Genitourinary No Gastrointestinal No Musculoskeletal No Endocrine History of Endocrine Disorders: No HEENT History of HEENT Disorders: Yes HEENT Disorders: Cataract Cancer No Psychosocial History of Psychiatric Problem: Yes Behavioral Health Disorders: Anxiety Integumentary History of Skin or Integumenta: No Blood Transfusions History of Blood Disorders: No Review of Systems Constitutional: see HPI EENTM: no symptoms reported Respiratory: cough, dyspnea on exertion, orthopnea, short of breath Cardiovascular: palpitations Gastrointestinal: no symptoms reported Genitourinary: no symptoms reported Musculoskeletal: no symptoms reported Skin: no symptoms reported Psychiatric/Neurological: No Symptoms Reported Physical Exam Physical Exam Vital Signs Vital Sign - Last 12Hours 08/27/17 10:01 Temp 97.0 Pulse 69 Resp 22 B/P (MAP) 170/97 Pulse Ox 97 O2 Delivery Nasal Cannula O2 Flow Rate 2.00 Capillary Refill : Less Than 3 SecondsLess Than 3 Seconds General Appearance: Mild Distress Eyes: Bilateral Eye Normal Inspection HEENT: Normal ENT Inspection Neck: Normal Inspection Respiratory: Chest Non Tender, Lungs Clear, Normal Breath Sounds, No Accessory Muscle Use, No Respiratory Distress Cardiovascular: Irregularly Irregular Gastrointestinal: Normal Bowel Sounds Back: Normal Inspection, No CVA Tenderness, No Vertebral Tenderness Extremity: Normal Capillary Refill, Normal Inspection, Normal Range of Motion, Non Tender, No Calf Tenderness, No Pedal Edema Neurologic/Psychiatric: Alert, Oriented x3, No Motor/Sensory Deficits, Normal Mood/Affect Skin: Normal Color, Warm/Dry Lymphatic: No Adenopathy Results Results/Procedures Lab Laboratory Tests 08/27/17 10:30 08/28/17 06:05 Assessment/Plan Admission Diagnosis 1.atrial fibrillation 2.chest x-ray consistent with pulmonary edema. 3.past history of CVA. Assessment and Plan Lasix. Cardiology consultation. Anticipated echocardiogram. Eliquis for anticoagulation Clinical Quality Measures DVT/VTE Risk/Contraindication: Risk Factor Score Per Nursin RFS Level Per Nursing on Admit: 2=Moderate AMBROCIO GARCIA MD Aug 28, 2017 13:33
[2017-08-28 16:35] VITALS: BP 159/86
[2017-08-28] MEDS ORDERED: amLODIPine 10 MG (NORVASC) TAB PO NR (17:00)
[2017-08-28] MEDS ORDERED: lisINopril 20 MG (ZESTRIL) TAB PO NR (17:00)
[2017-08-28] MEDS: ATORVASTATIN 40 MG (LIPITOR) TABLET PO SCH (20:12)
[2017-08-28 20:38] VITALS: BP 141/8
[2017-08-29 00:12] VITALS: BP 139/65
[2017-08-29 04:25] VITALS: BP 142/63
[2017-08-29] MEDS: CATHETER FLUSH 10 ML SYR IV SCH (05:33)
[2017-08-29 06:43] LABS: ANION GAP 9 MMOL/L (5-14); BLOOD UREA NITROGEN 10 MG/DL (7-18); BUN/CREATININE RATIO 14; CALCIUM 8.9 MG/DL (8.5-10.1); CARBON DIOXIDE 24 MMOL/L (21-32); CHLORIDE 107 MMOL/L (98-107); CREATININE SERUM 0.71 MG/DL (0.60-1.30); GFR ESTIMATED > 60; GLUCOSE 109 MG/DL (70-105); POTASSIUM 3.5 MMOL/L (3.6-5.0); SODIUM 140 MMOL/L (135-145)
[2017-08-29 07:46] VITALS: BP 142/63
[2017-08-29] MEDS: APIXABAN 5 MG (ELIQUIS) TABLET PO SCH (08:46)
[2017-08-29] MEDS: ASPIRIN 81 MG CHEW (CHILDREN'S ASA) PO SCH (08:46)
[2017-08-29] MEDS: AMITRIPTYLINE 10 MG (ELAVIL) TAB PO SCH (08:46)
[2017-08-29] MEDS ORDERED: lisINopril 20 MG (ZESTRIL) TAB PO SCH (09:00)
[2017-08-29] MEDS ORDERED: TRIAMTERENE/HCTZ 75-50 (MAXZIDE,DYAZIDE) TABLET PO SCH (09:00)
[2017-08-29] MEDS ORDERED: meTOproloL SUCCINATE 50 MG (TOPROL XL) TAB PO SCH (09:00)
[2017-08-29] MEDS ORDERED: amLODIPine 10 MG (NORVASC) TAB PO SCH (09:00)
--- NOTE | 2017-08-29 09:25 | Progress Note-Cardiology ---
Cardiology SOAP Progress Note Subjective: Sitting up in a chair at the bedside. States she feels good and wants to go home. No c/o CP, palpitations, syncope or near syncope. No c/o dyspnea. Objective: I&O/Vital Signs Vital Sign - Last 12Hours 08/29/17 08/29/17 08/29/17 04:25 07:00 07:46 Temp 98.1 98.1 Pulse 75 73 69 Resp 20 18 B/P (MAP) 142/63 142/63 Pulse Ox 96 95 O2 Delivery Room Air Room Air Weight (Pounds): 166 Weight (Ounces): 2.0 Weight (Calculated Kilograms): 75.244198 Constitutional: AAO x 3 Respiratory: No accessory muscle use, No respiratory distress, chest expansion is symmetric, chest is bilaterally symmetric, other (diminished RLL) Cardiovascular: irregularly irregular, No JVD, S1 and S2, systolic murmur Gastrointestional: No tender, soft, round, audible bowel sounds Extremities: no lower extremity edema bilateral Neurologic/Psychiatric: grossly intact Skin: No rash, No ulcerations Results/Procedures: Labs Laboratory Tests 08/29/17 05:51: Sodium Level 140, Potassium Level 3.5L, Chloride Level 107, Carbon Dioxide Level 24, Anion Gap 9, Blood Urea Nitrogen 10, Creatinine 0.71, Estimat Glomerular Filtration Rate > 60, BUN/Creatinine Ratio 14, Glucose Level 109H, Calcium Level 8.9 A/P: Assessment: Dyspnea likely multi-factorial (see below) A-fib first diagnosed on 08/26/17 and found to be associated with bradycardia, onset undetermined Ac CHF, likely diastolic, now clinically compensated Reports h/o sleep apnea TSH 1.92 on 08-28-17 Echo of 08/28/17: LVEF 60-65%, PASP 50-60 mmHg, mod TR, mild to mod MR, mild AI MPI of 08/28/17: no ischemia or infarction, normal LVEF H/O non-hemorrhagic CVA in 2010 Mild calcified bilat carotid plaque with R external carotid occlusion - per u/s of at [facility] HTN - improved with increased dose of calcium channel caroline and RIK (-) HLP - statin tx NSR with multi-focal PVC's per 48 hour Holter of June [address] Monroy Plan: A-fib with a controlled rate. Continue OAC with Eliquis for stroke prophylaxis. Discussed her CV status with her BP improved, continue current medication regimen Replace potassium and add potassium as out pt OK to discharge home today BMP and Mag level next week d/t diuretics F/U as out pt in 2 weeks Physician Assessment Physician Assessment No cp or shortness of breath Lung: clear Cor: irreg Ext: no c/c/e A&R * As documented in our note above that I updated (italics) and as noted below * I discussed in detail again the results of cardiac w/u and med changes made * Outpatient f/u is advised * We discussed potential side effects of changed meds DERRICK MASON [employer] C[employer]URE OPERATOR Aug 29, 2017 09:25 BING EDWARD MD [facility] Aug 29, 2017 13:12
[2017-08-29] MEDS ORDERED: KCL 20 MEQ TAB (K-DUR) PO NR (09:30)
[2017-08-29] MEDS ORDERED: LISI-552 PO (09:31)
[2017-08-29] MEDS ORDERED: ASPI-999 PO (09:31)
[2017-08-29] MEDS ORDERED: POTA10TA10 PO (09:31)
[2017-08-29] MEDS ORDERED: AMLO10TA2 PO (09:31)
[2017-08-29] MEDS ORDERED: APIX5TAB PO (09:31)
[2017-08-29] MEDS ORDERED: TRIA1TAB5 PO (09:31)
[2017-08-29] MEDS ORDERED: METO-272 PO (09:31)
--- NOTE | 2017-08-29 10:50 | STRESS TEST ---
DATE OF SERVICE: 08/28/2017 RESTING AND POST REGADENOSON TECHNETIUM 99-M TETROFOSMIN SPECT CT IMAGING: ORDERING PHYSICIAN: Sun Cheung APRN. PRIMARY PHYSICIAN: Dr. Cline. OTHER PHYSICIANS: Dr. Perez, Dr. Chandra. CLINICAL DIAGNOSIS: Shortness of breath, atrial fibrillation. Baseline images were carried out after injection of 10.71 mCi of technetium-99M Tetrofosmin. This was followed by 0.4 mg of regadenoson and 31.1 mCi technetium-99M Tetrofosmin for stress imaging. The electrocardiogram showed atrial fibrillation throughout the study. There did not appear to be significant ST segment changes. The patient tolerated the procedure well. Review of images at rest and following stress does not indicate any significant perfusion defects consistent with significant myocardial ischemia or infarction. Gated images show normal global left ventricular systolic function with normal regional wall motion. Left ventricular ejection fraction is calculated to be 70%. Left ventricular end diastolic volume is 39 mL. TID is absent (1.05). CONCLUSIONS: 1. No evidence of significant myocardial ischemia or infarction on this study. 2. Normal regional wall motion. 3. Normal global left ventricular systolic function with a calculated ejection fraction of 70%. Job ID: [id number] DocumentID: [id number] Dictated Date: 08/28/2017 15:16:21 Insurance Claims Representative Date: 08/29/2017 03:39:25 Dictated By: BING PEREZ MD, MA, FACP, FACC,
--- NOTE | 2017-08-29 11:14 | Discharge Summary-Hospitalist ---
Diagnosis/Chief Complaint Date of Admission Aug 27, 2017 at 11:00 Date of Discharge Admission Diagnosis 1.atrial fibrillation 2.chest x-ray consistent with pulmonary edema. 3.past history of CVA. Discharge Diagnosis 1.atrial fibrillation 2.chest x-ray consistent with pulmonary edema. 3.past history of CVA. 4. Recent pneumonia Discharge Summary Discharge Physical Examination Allergies: Coded Allergies: No Known Drug Allergies (Unverified , 08/27/17) Vitals & I&Os Vital Signs Date Time Temp Pulse Resp B/P (MAP) Pulse Ox O2 Delivery O2 Flow Rate FiO2 08/29/17 07:46 98.1 69 18 142/63 95 Room Air 08/27/17 11:44 2.00 Hospital Course Hospital course: patient had an uncomplicated hospital course. Cardiology was consulted for new AF w/RVR and was managed on initiated regimen and had no side effects. ECHO was obtained due to pulmonary edema and Lasix was given with good results. ECHO revealed valvular heart disease but preserved systolic function. Anti-coagulation was initiated for stroke prophylaxis due to AF and all meds were finalized by Cardiology and will have close f/u with Dr Cline her PCP and now Dr Perez her new Insights Analyst. Labs (last 24 hrs) Laboratory Tests 08/29/17 05:51: Sodium Level 140, Potassium Level 3.5L, Chloride Level 107, Carbon Dioxide Level 24, Anion Gap 9, Blood Urea Nitrogen 10, Creatinine 0.71, Estimat Glomerular Filtration Rate > 60, BUN/Creatinine Ratio 14, Glucose Level 109H, Calcium Level 8.9 Pending Labs Laboratory Tests 08/29/17 05:51: Sodium Level 140, Potassium Level 3.5, Chloride Level 107, Carbon Dioxide Level 24, Anion Gap 9, Blood Urea Nitrogen 10, Creatinine 0.71, Estimat Glomerular Filtration Rate > 60, BUN/Creatinine Ratio 14, Glucose Level 109, Calcium Level 8.9 Discharge Home Medications: Active Scripts Active Potassium Chloride 10 Meq Tablet.er 10 Meq PO DAILY Triamterene-Hctz 75-50 mg Tab (Triamterene/Hydrochlorothiazid) 1 Each Tablet 0.5 Ea PO DAILY Aspirin 81 Mg Tab.chew 81 Mg PO DAILY@0900 Lisinopril 20 Mg Tablet 20 Mg PO DAILY Amlodipine Besylate 10 Mg Tablet 10 Mg PO DAILY Metoprolol Succinate 50 Mg Tab.er.24h 50 Mg PO DAILY Eliquis (Apixaban) 5 Mg Tablet 5 Mg PO BID Reported Fexofenadine HCl 180 Mg Tablet 180 Mg PO DAILY PRN Centrum Silver Tablet (Multivit-Min/FA/Lycopene/Lut) 1 Each Tablet 1 Tab PO DAILY Fish Oil 1,000 mg Capsule ([place] 3 Polyunsat Fatty Acids) 1,000 Mg Cap 1,000 Mg PO BID Glucosamine & Chondroitin Cap (Glucosa Solitario 2Kcl/Chondroitin Solitario) 1 Each Capsule 1 Cap PO BID Calcium 500 + D Tablet (Calcium Carbonate/Vitamin D3) 1 Each Tablet 1 Tab PO BID Aspirin 325 Mg Tablet 325 Mg PO 1700 Acetaminophen Extra Strength (Acetaminophen) 500 Mg Tablet 500-1,000 Mg PO Q4H PRN Pantoprazole Sodium 40 Mg Tablet.dr 40 Mg PO DAILY Metoprolol Succinate 100 Mg Tab.er.24h 100 Mg PO HS Simvastatin 10 Mg Tablet 10 Mg PO HS Verapamil ER (Verapamil HCl) 240 Mg Cap24h.pel 240 Mg PO DAILY Amitriptyline HCl 10 Mg Tablet 10 Mg PO BID Instructions to patient/family Please see electronic discharge instructions given to patient. Clinical Quality Measures DVT/VTE Risk/Contraindication: Risk Factor Score Per Nursin RFS Level Per Nursing on Admit: 2=Moderate ARABELLA GENAO DO Aug 29, 2017 11:14
[2017-08-29 13:20] VITALS: BP 142/63
== END 2017-08-29 13:30 | disposition home or self-care (01) | DRG 308 ==
LOC: EDUNIT# 09:54 → ER 09:55 → 4TH 11:00
PROVIDERS: ADMIT Internal Medicine; ATTEND Internal Medicine
DX: Z86.73 Personal history of transient ischemic attack (TIA), and cerebral infarction without residual deficits; I08.3 Combined rheumatic disorders of mitral, aortic and tricuspid valves; E78.00 Pure hypercholesterolemia, unspecified; R00.1 Bradycardia, unspecified; I11.0 Hypertensive heart disease with heart failure; I48.0 Paroxysmal atrial fibrillation; I50.31 Acute diastolic (congestive) heart failure; Z79.82 Long term (current) use of aspirin; F41.9 Anxiety disorder, unspecified; G62.9 Polyneuropathy, unspecified; J81.1 Chronic pulmonary edema; I65.23 Occlusion and stenosis of bilateral carotid arteries; Z23 Encounter for immunization
CPT/HCPCS: 36415; 71010; 71020; 78452; 80048; 80053; 80061; 81000; 83735; 83874; 83880; 84443; 84484; 85025; 85610; 85730; 93005; 93017; 93041; 93306

== ENCOUNTER → 2017-09-05 | Outpatient (CLI) | payer MEDICARE ==
[~2017-09-05] MED LIST changes: +ACET-168 PO; +AMLO10TA2 PO; +APIX5TAB PO; +ASPI-808 PO; +ASPI-999 PO; +CALC-654 PO; +FEXO-46 PO; +GLUC1CAP37 PO; +LISI-552 PO; +METO-272 PO; +METO-274 PO; +MULT-1029 PO; +OMG1KC PO; +PANT40TA3 PO; +POTA10TA10 PO; +SIMV10TA3 PO; +TRIA1TAB5 PO; +VERA240C2 PO
[2017-09-05 17:10] LABS: ANION GAP 9 MMOL/L (5-14); BLOOD UREA NITROGEN 17 MG/DL (7-18); BUN/CREATININE RATIO 20; CALCIUM 9.9 MG/DL (8.5-10.1); CARBON DIOXIDE 24 MMOL/L (21-32); CHLORIDE 101 MMOL/L (98-107); CREATININE SERUM 0.87 MG/DL (0.60-1.30); GFR ESTIMATED > 60; GLUCOSE 115 MG/DL (70-105); MAGNESIUM 2.2 MG/DL (1.8-2.4); POTASSIUM 4.3 MMOL/L (3.6-5.0); SODIUM 134 MMOL/L (135-145)
== END ==
LOC: LAB 16:13
PROVIDERS: ATTEND Nurse Practitioner Family
DX: I50.9 Heart failure, unspecified (principal)
CPT/HCPCS: 36415; 80048; 83735

== ENCOUNTER → 2017-09-20 | Outpatient (CLI) | payer MEDICARE | LOC: CARD 10:35 | PROVIDERS: ATTEND Internal Medicine Cardiovascular Disease | DX: I48.2 Chronic atrial fibrillation (principal); I50.31 Acute diastolic (congestive) heart failure; I65.23 Occlusion and stenosis of bilateral carotid arteries; G47.33 Obstructive sleep apnea (adult) (pediatric) | CPT/HCPCS: 93225; 93226 ==

== ENCOUNTER → 2017-11-02 | Outpatient (CLI) | payer MEDICARE ==
[~2017-11-02] MED LIST changes: +AZIT250T12 PO; -AZIT250T5 PO; -METO-272 PO; -METO-274 PO; +METO-370 PO; +METO-395 PO
--- NOTE | 2017-11-02 15:11 | Diagnostic Imaging Report ---
INDICATION: Followup pneumonia. Comparison with 08/28/2017. FINDINGS: PA and lateral views show the lungs to be well aerated. There has been clearing of right lower lobe infiltrate. There are no residual infiltrates. Heart is not enlarged. No hilar adenopathy. No pulmonary edema. No pneumothorax or pleural effusion. IMPRESSION: Normal PA and lateral chest with clearing of right lower lobe pneumonia. Dictated by: Dictated on workstation # [id number]
== END ==
LOC: RAD 14:38
PROVIDERS: ATTEND Internal Medicine
DX: J18.1 Lobar pneumonia, unspecified organism (principal)
CPT/HCPCS: 71020

== ENCOUNTER → 2018-06-14 | Outpatient (CLI) | payer MEDICARE ==
--- NOTE | 2018-06-14 11:47 | Diagnostic Imaging Report ---
INDICATION: Routine screening. COMPARISON: 06/13/2017 and 03/01/2015. TECHNIQUE: 2D and 3D bilateral screening mammography was performed with CAD. FINDINGS: Scattered fibroglandular densities are identified bilaterally. Benign calcifications are again seen bilaterally. No dominant mass or malignant appearing microcalcifications are seen. The axillae are unremarkable. IMPRESSION: No mammographic features suspicious for malignancy are identified. ACR BI-RADS Category 2: Benign findings. Result letter will be mailed to the patient. Note: At least 10% of breast cancer is not imaged by mammography. Dictated by: Dictated on workstation # [id number]
== END ==
LOC: RAD 07:15
PROVIDERS: ATTEND Nurse Practitioner
DX: Z12.31 Encounter for screening mammogram for malignant neoplasm of breast (principal)
CPT/HCPCS: 77067

== ENCOUNTER 2018-08-30 05:57 | Outpatient (CLI) | payer MEDICARE ==
[~2018-08-30] VITALS: Ht 152.4 cm; Wt 71.7 kg
[~2018-08-30 05:57] MED LIST changes: -AMLO10TA2 PO; +AMLO10TA6 PO
[2018-08-30] MEDS ORDERED: POTA10CA43 PO (12:26)
[2018-08-30] MEDS ORDERED: METO-370 PO (12:26)
[2018-08-30] MEDS ORDERED: ASPI-586 PO (13:42)
[2018-08-30] MEDS ORDERED: LISI-552 PO (13:42)
[2018-08-30] MEDS ORDERED: APIX5TAB PO (13:42)
[2018-08-30] MEDS ORDERED: AMLO10TA6 PO (13:42)
[2018-08-30] MEDS ORDERED: TRIA1TAB5 PO (13:42)
== END 2018-08-30 13:42 | disposition home or self-care (01) ==
LOC: PREOP 05:57
PROVIDERS: ATTEND Surgery
DX: Z01.818 Encounter for other preprocedural examination (principal)

== ENCOUNTER 2018-09-06 10:49 | Day surgery (SDC) | payer MEDICARE ==
[~2018-09-06] VITALS: Ht 152.4 cm; Wt 71.7 kg
[~2018-09-06 10:49] MED LIST changes: +ASPI-586 PO; +POTA10CA43 PO
[2018-09-06] MEDS ORDERED: NS IV 500 ML 500 ML IV PRN (10:50)
[2018-09-06] MEDS ORDERED: NS IV 500 ML 500 ML ONE (10:53)
--- NOTE | 2018-09-06 10:58 | Conscious Sedation/ASA ---
Conscious Sedation Pre-Proced Time 10:55 ASA Score 2 For ASA 3 and 4: Consider anesthesia and medical clearance. Also, for patients with a history of failed moderate sedation consider anesthesia. Airway Lungs Heart ASA score ASA 1: a normal healthy patient ASA 2: a patient with a mild systemic disease (mid diabetes, controlled hypertension, obesity ASA 3: a patient with a severe systemic disease that limits activity (angina , COPD, prior Myocardial infarction) ASA 4: a patient with an incapacitating disease that is a constant threat to life (CHF, renal failure) ASA 5: a moribund patient not expected to survive 24 hrs. (ruptured aneurysm) ASA 6: a declared brain patient whose organs are being harvested. For emergent operations, add the letter E after the classification Mallampati Classification Grade 3 Sedation Plan Analgesia, Amnesia, Plan communicated to team members, Discussed options with patient/fam, Discussed risks with patient/fam The patient is an appropriate candidate to undergo the planned procedure, sedation, and anesthesia. The patient immediately re-assessed prior to indication. DWAIN FUNES MD Sep 06, 2018 10:58 am
--- NOTE | 2018-09-06 10:59 | Progress Note-Pre Operative ---
Pre-Operative Progress Note H&P Reviewed The H&P was reviewed, patient examined and no changes noted. Date Seen by Provider: Sep 06, 2018 Time Seen by Provider: 10:55 Date H&P Reviewed: Sep 06, 2018 Time H&P Reviewed: :55 Pre-Operative Diagnosis: hx polyp, screening DWAIN FUNES MD Sep 06, 2018 10:59 am
[2018-09-06] MEDS ORDERED: HYDROcodone/APAP 5 MG/325 MG (LORTAB) TAB PO PRN (11:00)
[2018-09-06] MEDS ORDERED: LIDOCAINE JELLY 2% 6 ML SYRINGE MM PRN (11:00)
[2018-09-06] MEDS ORDERED: HURRICAINE EXT TUBE (BENZOCAINE) XX PRN (11:00)
[2018-09-06] MEDS ORDERED: MIDAZOLAM 2 MG/2 ML (VERSED) VIAL IVP ONE (11:00)
[2018-09-06] MEDS ORDERED: morphine INJ 10 MG/ML 1ML (SYR OR VIAL) IV PRN (11:00)
[2018-09-06] MEDS ORDERED: fentaNYL INJECTION 100 MCG/2 ML AMP IVP ONE (11:00)
[2018-09-06] MEDS ORDERED: ONDANSETRON 4 MG/2 ML (SDV) Z0FRAN IV PRN (11:00)
[2018-09-06] MEDS ORDERED: ACETAMINOPHEN 325 MG TABLET PO PRN (11:00)
[2018-09-06 11:16] VITALS: BP 145/61
[2018-09-06] MEDS ORDERED: fentaNYL INJECTION 100 MCG/2 ML AMP ONE (11:20)
[2018-09-06] MEDS ORDERED: LIDOCAINE JELLY 2% 6 ML SYRINGE ONE (11:20)
[2018-09-06] MEDS ORDERED: HURRICAINE EXT TUBE (BENZOCAINE) ONE (11:21)
[2018-09-06] MEDS ORDERED: MIDAZOLAM 2 MG/2 ML (VERSED) VIAL ONE ×4 (11:21)
--- NOTE | 2018-09-06 12:28 | Progress Note-Post Operative ---
Post-Operative Progess Note Surgeon (s)/Advertising Representative (s) Surgeon DWAIN FUNES MD Advertising Representative: none Pre-Operative Diagnosis hx polyp, screening Post-Operative Diagnosis reflux esophagitis(grade 2), small HH(1cm), moderate gastritis. chronic mild stage 1 ext and int hemorrhoids. Procedure & Operative Findings Date of Procedure 09/06/18 Procedure Performed/Findings EGD with bx. Colonoscopy. Anesthesia Type CS Estimated Blood Loss Estimated blood loss (mL): minimal Specimens/Packing Specimens Removed GE jxn, antrum. DWAIN FUNES MD Sep 06, 2018 12:28 pm
[2018-09-06] MEDS ORDERED: SUCR1TAB36 PO (12:32)
--- NOTE | 2018-09-06 12:32 | Discharge Inst-Surgical ---
D/C Lap Instructions-KIDO New, Converted, or Re-Newed RX: RX on Chart Follow Up Appt in 2 weeks Activity as tolerated High Fiber Diet 25g or more per day Avoid Alcohol, Caffeine, Spicy Ocean and Acid foods. Drink 64 fluid oz or more of fluids per day. Symptoms to Report: Fever over 101 degree F, Nausea/Vomiting If any problems/questions: Contact your physician or go to Emergency Room DWAIN FUNES MD Sep 06, 2018 12:32 pm
[2018-09-06 12:35] VITALS: BP 144/60
[2018-09-06 13:05] VITALS: BP 136/57
[2018-09-06 13:20] VITALS: BP 136/57
--- OUTSIDE RECORDS SUMMARY | 2018-09-06 14:34 | XMS REPORT | Continuity of Care Document ---
Author Author [facility] Organization [facility] Address Unknown Phone Unavailable Allergies Active Description Code Type Severity Reaction Onset Reported/Identified Relationship to Patient Clinical Status Yes No Known Drug Allergies [id number] Drug Allergy Unknown N/A 08/27/2017 Medications Medication Packaging Start Date Stop Date Route Dosage Sig Amitriptyline HCl TABLET 2016 ORAL 10 MG BID TWICE A DAY Simvastatin TABLET 08/27/2017 ORAL 10 MG HS BEDTIME Pantoprazole Sodium TABLET. 08/27 ORAL 40 MG DAILY DAILY Acetaminophen Extra Strength TABLET 08/27/2017 ORAL 500-1000 MG Q4H EVERY 4HRS Glucosamine Chondroitin Cap CAPSULE 08/27/2017 ORAL 1 CAP BID TWICE A DAY Calcium 500 + D Tablet TABLET 08/27 ORAL 1 TAB BID TWICE A DAY Fish Oil 1 ORAL 08/27/2017 FISH OIL 1 [id number] M1 Centrum Silver Tablet TABLET 2016 ORAL 1 TAB DAILY DAILY Fexofenadine HCl TABLET 08/27/2017 ORAL 180 MG DAILY DAILY Aspirin TAB.CHEW 08/29/2017 ORAL 81 MG DAILY@0900 DAILY@ 0900 Metoprolol Succinate TAB.ER.24H 02/2017 ORAL 50 MG DAILY DAILY Triamterene-Hctz 75-50 mg Tab TABLET 08/29/2017 ORAL 0.5 EA DAILY DAILY Potassium Chloride TABLET.ER 2016 ORAL 10 MEQ DAILY DAILY Lisinopril TABLET 08/29/2017 ORAL 20 MG DAILY DAILY Amlodipine Besylate TABLET 2016 ORAL 10 MG DAILY DAILY Eliquis TABLET 08/29/2017 ORAL 5 MG BID TWICE A DAY Problems Date Dx Coded Attending Type Code Diagnosis Diagnosed By 06/11/2011 Ot 272.4 06/11/2011 Ot 401.9 06/11/2011 Ot 433.10 06/11/2011 Ot 434.91 06/11/2011 Ot 781.94 06/11/2011 Ot V12.59 03/01/2015 Ot V76.12 03/01/2015 Ot V76.12 03/01/2015 Ot V76.12 03/01/2015 Ot 793.82 03/01/2015 Ot V49.81 03/01/2015 Ot V76.12 03/01/2015 Ot V82.81 03/01/2015 Ot 793.89 03/01/2015 JÚNIOR KHAN Ot 793.80 03/01/2015 KEE CRAWFORD FRONT END ENGINEER Ot 793.80 03/01/2015 KEE CRAWFORD APRN Ot V67.9 04/16/2015 ISAIAS ELMORE MD Ot 793.89 04/16/2015 ISAIAS ELMORE MD Ot 793.89 07/20/2015 ISAIAS ELMORE MD Ot 785.1 07/23/2015 ISAIAS ELMORE MD Ot 785.1 08/25/2015 ISAIAS ELMORE MD Ot 785.1 PALPITATIONS 01/01/2017 Ot V76.12 OTH SCREEN MAMMO-MALIGN NEOPLASM OF MANUEL 01/01/2017 Ot 793.82 INCONCLUSIVE MAMMOGRAM 01/01/2017 Ot V49.81 ASYMPT POSTMENOPAUSAL STATUS (AGE-RELATE 01/01/2017 Ot V76.12 OTH SCREEN MAMMO-MALIGN NEOPLASM OF MANUEL 01/01/2017 Ot V82.81 SCREENING FOR OSTEOPOROSIS 01/01/2017 Ot 793.89 OTH (ABN) FINDINGS ON RADIOLOGICAL EXAMI 01/01/2017 JÚNIOR KHAN Ot 793.80 UNSPEC ABNORMAL MAMMOGRAM 01/01/2017 KEE CRAWFORD APRN Ot 793.80 UNSPEC ABNORMAL MAMMOGRAM 01/01/2017 KEE CRAWFORD APRN Ot V67.9 FOLLOW-UP EXAM NOS 01/01/2017 ISAIAS ELMORE MD Ot 793.89 OTH (ABN) FINDINGS ON RADIOLOGICAL EXAMI 01/02/2017 KEE CRAWFORD APRN Ot S89.92XA UNSPECIFIED INJURY OF LEFT LOWER LEG, IN 01/02/2017 KEE CRAWFORD FRONT END ENGINEER Ot X58.XXXA EXPOSURE TO OTHER SPECIFIED FACTORS, INI 01/02/2017 KEE CRAWFORD FRONT END ENGINEER Ot Y92.[address] IN SINGLE-FAMILY (PRIVATE) HO 01/02/2017 KEE CRAWFORD FRONT END ENGINEER Ot Y99.8 OTHER EXTERNAL CAUSE STATUS 01/26/2017 KEE CRAWFORD FRONT END ENGINEER Ot S89.92XA UNSPECIFIED INJURY OF LEFT LOWER LEG, IN 01/26/2017 KEE CRAWFORD FRONT END ENGINEER Ot X58.XXXA EXPOSURE TO OTHER SPECIFIED FACTORS, INI 01/26/2017 KEE CRAWFORD FRONT END ENGINEER Ot Y92.[address] IN SINGLE-FAMILY (PRIVATE) HO 01/26/2017 KEE CRAWFORD FRONT END ENGINEER Ot Y99.8 OTHER EXTERNAL CAUSE STATUS 01/31/2017 KEE CRAWFORD R FRONT END ENGINEER Ot S89.92XA UNSPECIFIED INJURY OF LEFT LOWER LEG, IN 01/31/2017 KEE CRAWFORD FRONT END ENGINEER Ot X58.XXXA EXPOSURE TO OTHER SPECIFIED FACTORS, INI 01/31/2017 KEE CRAWFORD FRONT END ENGINEER Ot Y92.[address] IN SINGLE-FAMILY (PRIVATE) HO 01/31/2017 JONNY CRAWFORDN R FRONT END ENGINEER Ot Y99.8 OTHER EXTERNAL CAUSE STATUS 06/13/2017 ISAIAS ELMORE MD Ot Z12.31 ENCNTR SCREEN MAMMOGRAM FOR MALIGNANT NE 06/13/2017 ISAIAS ELMORE MD Ot Z12.31 ENCNTR SCREEN MAMMOGRAM FOR MALIGNANT NE 06/13/2017 ISAIAS ELMORE MD Ot Z12.31 ENCNTR SCREEN MAMMOGRAM FOR MALIGNANT NE 06/13/2017 ISAIAS ELMORE MD Ot Z12.31 ENCNTR SCREEN MAMMOGRAM FOR MALIGNANT NE 07/05/2017 ISAIAS ELMORE MD Ot Z12.31 ENCNTR SCREEN MAMMOGRAM FOR MALIGNANT NE 07/25/2017 TYLER AGUILAR MD J Ot J18.9 PNEUMONIA, UNSPECIFIED ORGANISM 07/25/2017 LAUREN GRIFFITH TYLER J Ot R06.00 DYSPNEA, UNSPECIFIED 07/28/2017 LAUREN GRIFFITH TYLER J Ot J18.9 PNEUMONIA, UNSPECIFIED ORGANISM 07/28/2017 EBONIE AGUILAR MDUS J Ot R06.00 DYSPNEA, UNSPECIFIED 08/09/2017 KEE CRAWFORD FRONT END ENGINEER Ot J18.9 PNEUMONIA, UNSPECIFIED ORGANISM 08/09/2017 KEE CRAWFORD FRONT END ENGINEER Ot J90 PLEURAL EFFUSION, NOT ELSEWHERE CLASSIFI 08/28/2017 AMBROCIO GARCIA MD Ot E78.00 PURE HYPERCHOLESTEROLEMIA, UNSPECIFIED 08/28/2017 AMBROCIO GARCIA MD Ot G62.9 POLYNEUROPATHY, UNSPECIFIED 08/28/2017 AMBROCIO GARCIA MD Ot I08.3 COMB RHEUMATIC DISORD OF MITRAL, AORTIC 08/28/2017 AMBROCIO GARCIA MD Ot I11.0 HYPERTENSIVE HEART DISEASE WITH HEART FA 08/28/2017 AMBROCIO GARCIA MD Ot I48.91 UNSPECIFIED ATRIAL FIBRILLATION 08/28/2017 AMBROCIO GARCIA MD Ot I50.31 ACUTE DIASTOLIC (CONGESTIVE) HEART FAILU 08/28/2017 AMBROCIO GARCIA MD Ot I65.23 OCCLUSION AND STENOSIS OF BILATERAL [place] 08/28/2017 AMBROCIO GARCIA MD Ot J18.9 PNEUMONIA, UNSPECIFIED ORGANISM 08/28/2017 AMBROCIO GARCIA MD Ot Z23 ENCOUNTER FOR IMMUNIZATION 08/28/2017 AMBROCIO GARCIA MD Ot Z79.82 PENITENTIARY (CURRENT) USE OF ASPIRIN 08/28/2017 AMBROCIO GARCIA MD Ot Z86.73 PRSNL HX OF TIA (TIA), AND CEREB INFRC W 08/29/2017 KEE CRAWFORD APRN Ot I51.7 CARDIOMEGALY 08/29/2017 KEE CRAWFORD APRN Ot J90 PLEURAL EFFUSION, NOT ELSEWHERE CLASSIFI 08/29/2017 AMBROCIO GARCIA MD Ot E78.00 PURE HYPERCHOLESTEROLEMIA, UNSPECIFIED 08/29/2017 AMBROCIO GARCIA MD Ot F41.9 ANXIETY DISORDER, UNSPECIFIED 08/29/2017 AMBROCIO GARCIA MD Ot G62.9 POLYNEUROPATHY, UNSPECIFIED 08/29/2017 AMBROCIO GARCIA MD Ot I08.3 COMB RHEUMATIC DISORD OF MITRAL, AORTIC 08/29/2017 AMBROCIO GARCIA MD Ot I11.0 HYPERTENSIVE HEART DISEASE WITH HEART FA 08/29/2017 AMBROCIO GARCIA MD Ot I48.0 PAROXYSMAL ATRIAL FIBRILLATION 08/29/2017 AMBROCIO GARCIA MD Ot I50.31 ACUTE DIASTOLIC (CONGESTIVE) HEART FAILU 08/29/2017 AMBROCIO GARCIA MD Ot I65.23 OCCLUSION AND STENOSIS OF BILATERAL [place] 08/29/2017 AMBROCIO GARCIA MD Ot J81.1 CHRONIC PULMONARY EDEMA 08/29/2017 AMBROCIO GARCIA MD Ot R00.1 BRADYCARDIA, UNSPECIFIED 08/29/2017 AMBROCIO GARCIA MD Ot Z23 ENCOUNTER FOR IMMUNIZATION 08/29/2017 AMBROCIO GARCIA MD Ot Z79.82 PENITENTIARY (CURRENT) USE OF ASPIRIN 08/29/2017 JOSE GRIFFITH, AMBROCIO Dumont Ot Z86.73 PRSNL HX OF TIA (TIA), AND CEREB INFRC W 09/03/2017 YVETTE, KEE R FRONT END ENGINEER Ot J18.9 PNEUMONIA, UNSPECIFIED ORGANISM 09/03/2017 YVETTE, KEE R FRONT END ENGINEER Ot J90 PLEURAL EFFUSION, NOT ELSEWHERE CLASSIFI 09/04/2017 YVETTE KEE R FRONT END ENGINEER Ot I51.7 CARDIOMEGALY 09/04/2017 YVETTE, KEE R FRONT END ENGINEER Ot J90 PLEURAL EFFUSION, NOT ELSEWHERE CLASSIFI 09/05/2017 YVETTE KEE R FRONT END ENGINEER Ot J18.9 PNEUMONIA, UNSPECIFIED ORGANISM 09/05/2017 YVETTE, KEE R FRONT END ENGINEER Ot J90 PLEURAL EFFUSION, NOT ELSEWHERE CLASSIFI 09/19/2017 CHEYANNE GRIFFITH FACC, ALI FACP CCDS Ot I48.2 CHRONIC ATRIAL FIBRILLATION 09/24/2017 CHEYANNE GRIFFITH FACC, ALI FACP CCDS Ot G47.33 OBSTRUCTIVE SLEEP APNEA (ADULT) (PEDIATR 09/24/2017 CHEYANNE GRIFFITH FACC, ALI FACP CCDS Ot I48.2 CHRONIC ATRIAL FIBRILLATION 09/24/2017 CHEYANNE GRIFFITH FACC, ALI FACP CCDS Ot I50.31 ACUTE DIASTOLIC (CONGESTIVE) HEART FAILU 09/24/2017 CHEYANNE GRIFFITH FACC, ALI FACP CCDS Ot I65.23 OCCLUSION AND STENOSIS OF BILATERAL [place] 09/27/2017 DERRICK MASON WOODEN FRAME BUILDER Ot I50.9 HEART FAILURE, UNSPECIFIED 10/01/2017 KAITLIN, JACQUELYN J SYSTEMS CONSULTANT Ot G47.33 OBSTRUCTIVE SLEEP APNEA (ADULT) (PEDIATR 10/03/2017 KAITLIN, JACQUELYN J SYSTEMS CONSULTANT Ot G47.33 OBSTRUCTIVE SLEEP APNEA (ADULT) (PEDIATR 10/12/2017 CHEYANNE GRIFFITH FACC, ALI FACP CCDS Ot G47.33 OBSTRUCTIVE SLEEP APNEA (ADULT) (PEDIATR 10/12/2017 CHEYANNE GRIFFITH FACC, ALI FACP CCDS Ot I48.2 CHRONIC ATRIAL FIBRILLATION 10/12/2017 CHEYANNE GRIFFITH FACC, ALI FACP CCDS Ot I50.31 ACUTE DIASTOLIC (CONGESTIVE) HEART FAILU 10/12/2017 CHEYANNE GRIFFITH FACC, BING FACP CCDS Ot I65.23 OCCLUSION AND STENOSIS OF BILATERAL [place] 10/22/2017 CHEYANNE GRIFFITH FACC, ALI FACP CCDS Ot G47.33 OBSTRUCTIVE SLEEP APNEA (ADULT) (PEDIATR 10/22/2017 CHEYANNE GRIFFITH FACC, BING KRISHNA CCDS Ot I48.2 CHRONIC ATRIAL FIBRILLATION 10/22/2017 BING EDWARD MD, FACC, FACP CCDS Ot I50.31 ACUTE DIASTOLIC (CONGESTIVE) HEART FAILU 10/22/2017 CHEYANNE GRIFFITH FACC, BING FACP CCDS Ot I65.23 OCCLUSION AND STENOSIS OF BILATERAL [place] 11/23/2017 ISAIAS ELMORE MD Ot J18.1 LOBAR PNEUMONIA, UNSPECIFIED ORGANISM 12/06/2017 ISAIAS ELMORE MD Ot J18.1 LOBAR PNEUMONIA, UNSPECIFIED ORGANISM 06/14/2018 JÚNIOR KHAN WOODEN FRAME BUILDER Ot 793.80 UNSPEC ABNORMAL MAMMOGRAM 06/14/2018 KEE CRAWFORD FRONT END ENGINEER Ot 793.80 UNSPEC ABNORMAL MAMMOGRAM 06/14/2018 KEE CRAWFORD FRONT END ENGINEER Ot V67.9 FOLLOW-UP EXAM NOS 06/14/2018 ISAIAS ELMORE MD Ot 793.89 OTH (ABN) FINDINGS ON RADIOLOGICAL EXAMI 06/14/2018 KEE CRAWFORD FRONT END ENGINEER Ot S89.92XA UNSPECIFIED INJURY OF LEFT LOWER LEG, IN 06/14/2018 KEE CRAWFORD FRONT END ENGINEER Ot X58.XXXA EXPOSURE TO OTHER SPECIFIED FACTORS, INI 06/14/2018 KEE CRAWFORD FRONT END ENGINEER Ot Y92.[address] IN SINGLE-FAMILY (PRIVATE) HO 06/14/2018 KEE CRAWFORD FRONT END ENGINEER Ot Y99.8 OTHER EXTERNAL CAUSE STATUS 06/14/2018 ISAIAS ELMORE MD Ot Z12.31 ENCNTR SCREEN MAMMOGRAM FOR MALIGNANT NE 06/14/2018 KEE CRAWFORD FRONT END ENGINEER Ot I51.7 CARDIOMEGALY 06/14/2018 KEE CRAWFORD FRONT END ENGINEER Ot J90 PLEURAL EFFUSION, NOT ELSEWHERE CLASSIFI 06/14/2018 KEE CRAWFORD FRONT END ENGINEER Ot J18.9 PNEUMONIA, UNSPECIFIED ORGANISM 06/14/2018 KEE CRAWFORD FRONT END ENGINEER Ot J90 PLEURAL EFFUSION, NOT ELSEWHERE CLASSIFI 06/14/2018 DERRICK MASON WOODEN FRAME BUILDER Ot I50.9 HEART FAILURE, UNSPECIFIED 06/14/2018 CHEYANNE GRIFFITH FACC, BING KRISHNA CCDS Ot G47.33 OBSTRUCTIVE SLEEP APNEA (ADULT) (PEDIATR 06/14/2018 CHEYANNE OLVERA, BING [facility] CCDS Ot I48.2 CHRONIC ATRIAL FIBRILLATION 06/14/2018 CHEYANNE GRIFFITH FACC, [facility] Ot I50.31 ACUTE DIASTOLIC (CONGESTIVE) HEART FAILU 06/14/2018 CHEYANNE GRIFFITH FACC, ALI FACP CCDS Ot I65.23 OCCLUSION AND STENOSIS OF BILATERAL [place]ARD[place] 06/14/2018 CATARINA GRIFFITH, ISAIAS Villegas Ot J18.1 LOBAR PNEUMONIA, UNSPECIFIED ORGANISM 06/14/2018 KEE CRAWFORD APRN Ot Z12.31 ENCNTR SCREEN MAMMOGRAM FOR MALIGNANT NE 06/17/2018 KEE CRAWFORD APRN Ot Z12.31 ENCNTR SCREEN MAMMOGRAM FOR MALIGNANT NE 08/30/2018 MARIN GRIFFITH, DWAIN Ot Z01.818 ENCOUNTER FOR OTHER PREPROCEDURAL EXAMIN Procedures There is no data. Results Test Result Range Complete blood count (CBC) with automated white blood cell (WBC) differential - 07/25/17 17:45 Blood leukocytes automated count (number/volume) 13.4 10*3/uL 4.3-11.0 Blood erythrocytes automated count (number/volume) 4.74 10*6/uL 4.35-5.85 Venous blood hemoglobin measurement (mass/volume) 14.3 g/dL 11.5-16.0 Blood hematocrit (volume fraction) 42 % 35-52 Automated erythrocyte mean corpuscular volume 90 [foz_us] 80-99 Automated erythrocyte mean corpuscular hemoglobin (mass per erythrocyte) 30 pg 25-34 Automated erythrocyte mean corpuscular hemoglobin concentration measurement ( mass/volume) 34 g/dL 32-36 Automated erythrocyte distribution width ratio 13.1 % 10.0-14.5 Automated blood platelet count (count/volume) 301 10*3/uL 130-400 Automated blood platelet mean volume measurement 9.8 [foz_us] 7.4-10.4 Automated blood neutrophils/100 leukocytes 72 % 42-75 Automated blood lymphocytes/100 leukocytes 15 % 12-44 Blood monocytes/100 leukocytes 11 % 0-12 Automated blood eosinophils/100 leukocytes 2 % 0-10 Automated blood basophils/100 leukocytes 0 % 0-10 Blood neutrophils automated count (number/volume) 9.7 10*3 1.8-7.8 Blood lymphocytes automated count (number/volume) 2.0 10*3 1.0-4.0 Blood monocytes automated count (number/volume) 1.5 10*3 0.0-1.0 Automated eosinophil count 0.2 10*3/uL 0.0-0.3 Automated blood basophil count (count/volume) 0.1 10*3/uL 0.0-0.1 Comprehensive metabolic panel - 07/25/17 17:45 Serum or plasma sodium measurement (moles/volume) 137 mmol/L 135-145 Serum or plasma potassium measurement (moles/volume) 4.2 mmol/L 3.6-5.0 Serum or plasma chloride measurement (moles/volume) 101 mmol/L 98-107 Carbon dioxide 24 mmol/L 21-32 Serum or plasma anion gap determination (moles/volume) 12 mmol/L 5-14 Serum or plasma urea nitrogen measurement (mass/volume) 10 mg/dL 7-18 Serum or plasma creatinine measurement (mass/volume) 0.80 mg/dL 0.60-1.30 Serum or plasma urea nitrogen/creatinine mass ratio 13 NRG Serum or plasma creatinine measurement with calculation of estimated glomerular filtration rate > NRG Serum or plasma glucose measurement (mass/volume) 116 mg/dL 70-105 Serum or plasma calcium measurement (mass/volume) 9.8 mg/dL 8.5-10.1 Serum or plasma total bilirubin measurement (mass/volume) 0.6 mg/dL 0.1-1.0 Serum or plasma alkaline phosphatase measurement (enzymatic activity/volume) 78 U/L 40-136 Serum or plasma aspartate aminotransferase measurement (enzymatic activity/ volume) 21 U/L 5-34 Serum or plasma alanine aminotransferase measurement (enzymatic activity/volume ) 20 U/L 0-55 Serum or plasma protein measurement (mass/volume) 7.6 g/dL 6.4-8.2 Serum or plasma albumin measurement (mass/volume) 3.9 g/dL 3.2-4.5 Magnesium - 07/25/17 17:45 Magnesium 2.2 mg/dL 1.8-2.4 Serum or plasma troponin i.cardiac measurement (mass/volume) - 07/25/17 17:45 Serum or plasma troponin i.cardiac measurement (mass/volume) < ng/ mL <0.30 Serum or plasma lithium measurement (moles/volume) - 07/25/17 17:45 BNP level 234.7 pg/mL <100.0 Complete urinalysis with reflex to culture - 08/27/17 10:15 Urine color determination YELLOW NRG Urine clarity determination CLEAR NRG Urine pH measurement by test strip 6 5-9 Specific gravity of urine by test strip 1.010 1.016- 1.022 Urine protein assay by test strip, semi-quantitative NEGATIVE NEGATIVE Urine glucose detection by automated test strip NEGATIVE NEGATIVE Erythrocytes detection in urine sediment by light microscopy NEGATIVE NEGATIVE Urine ketones detection by automated test strip NEGATIVE NEGATIVE Urine nitrite detection by test strip NEGATIVE NEGATIVE Urine total bilirubin detection by test strip NEGATIVE NEGATIVE Urine urobilinogen measurement by automated test strip (mass/volume) NORMAL NORMAL Urine leukocyte esterase detection by dipstick 1+ NEGATIVE Automated urine sediment erythrocyte count by microscopy (number/high power field) NONE NRG Automated urine sediment leukocyte count by microscopy (number/high power field ) [HPF] NRG Bacteria detection in urine sediment by light microscopy NEGATIVE NRG Squamous epithelial cells detection in urine sediment by light microscopy 0-2 NRG Crystals detection in urine sediment by light microscopy NONE NRG Casts detection in urine sediment by light microscopy NONE NRG Mucus detection in urine sediment by light microscopy NEGATIVE NRG Complete urinalysis with reflex to culture NO NRG Complete blood count (CBC) with automated white blood cell (WBC) differential - 08/27/17 10:30 Blood leukocytes automated count (number/volume) 9.8 10*3/uL 4.3-11.0 Blood erythrocytes automated count (number/volume) 4.36 10*6/uL 4.35-5.85 Venous blood hemoglobin measurement (mass/volume) 12.9 g/dL 11.5-16.0 Blood hematocrit (volume fraction) 39 % 35-52 Automated erythrocyte mean corpuscular volume 89 [foz_us] 80-99 Automated erythrocyte mean corpuscular hemoglobin (mass per erythrocyte) 30 pg 25-34 Automated erythrocyte mean corpuscular hemoglobin concentration measurement ( mass/volume) 33 g/dL 32-36 Automated erythrocyte distribution width ratio 13.5 % 10.0-14.5 Automated blood platelet count (count/volume) 200 10*3/uL 130-400 Automated blood platelet mean volume measurement 10.5 [foz_us] 7.4-10.4 Automated blood neutrophils/100 leukocytes 71 % 42-75 Automated blood lymphocytes/100 leukocytes 14 % 12-44 Blood monocytes/100 leukocytes 13 % 0-12 Automated blood eosinophils/100 leukocytes 1 % 0-10 Automated blood basophils/100 leukocytes 0 % 0-10 Blood neutrophils automated count (number/volume) 6.9 10*3 1.8-7.8 Blood lymphocytes automated count (number/volume) 1.4 10*3 1.0-4.0 Blood monocytes automated count (number/volume) 1.3 10*3 0.0-1.0 Automated eosinophil count 0.1 10*3/uL 0.0-0.3 Automated blood basophil count (count/volume) 0.0 10*3/uL 0.0-0.1 PT panel in platelet poor plasma by coagulation assay - 08/27/17 10:30 Prothrombin time (PT) in platelet poor plasma by coagulation assay 12.9 s 12.2-14.7 INR in platelet poor plasma or blood by coagulation assay 1.0 0.8-1.4 Activated partial thromboplastin time (aPTT) in platelet poor plasma bycoagulation assay - 08/27/17 10:30 Activated partial thromboplastin time (aPTT) in platelet poor plasma bycoagulation assay 32 s 24-35 Comprehensive metabolic panel - 08/27/17 10:30 Serum or plasma sodium measurement (moles/volume) 138 mmol/L 135-145 Serum or plasma potassium measurement (moles/volume) 4.0 mmol/L 3.6-5.0 Serum or plasma chloride measurement (moles/volume) 105 mmol/L 98-107 Carbon dioxide 22 mmol/L 21-32 Serum or plasma anion gap determination (moles/volume) 11 mmol/L 5-14 Serum or plasma urea nitrogen measurement (mass/volume) 10 mg/dL 7-18 Serum or plasma creatinine measurement (mass/volume) 0.72 mg/dL 0.60-1.30 Serum or plasma urea nitrogen/creatinine mass ratio 14 NRG Serum or plasma creatinine measurement with calculation of estimated glomerular filtration rate > NRG Serum or plasma glucose measurement (mass/volume) 111 mg/dL 70-105 Serum or plasma calcium measurement (mass/volume) 8.9 mg/dL 8.5-10.1 Serum or plasma total bilirubin measurement (mass/volume) 0.9 mg/dL 0.1-1.0 Serum or plasma alkaline phosphatase measurement (enzymatic activity/volume) 62 U/L 40-136 Serum or plasma aspartate aminotransferase measurement (enzymatic activity/ volume) 24 U/L 5-34 Serum or plasma alanine aminotransferase measurement (enzymatic activity/volume ) 30 U/L 0-55 Serum or plasma protein measurement (mass/volume) 6.9 g/dL 6.4-8.2 Serum or plasma albumin measurement (mass/volume) 3.8 g/dL 3.2-4.5 Magnesium - 08/27/17 10:30 Magnesium 2.1 mg/dL 1.8-2.4 Serum or plasma troponin i.cardiac measurement (mass/volume) - 08/27/17 10:30 Serum or plasma troponin i.cardiac measurement (mass/volume) < ng/ mL <0.30 Myoglobin, serum - 08/27/17 10:30 Myoglobin, serum 36.6 ng/mL 10.0-92.0 Serum or plasma lithium measurement (moles/volume) - 08/27/17 10:30 BNP level 292.4 pg/mL <100.0 Complete blood count (CBC) with automated white blood cell (WBC) differential - 08/28/17 06:05 Blood leukocytes automated count (number/volume) 8.0 10*3/uL 4.3-11.0 Blood erythrocytes automated count (number/volume) 4.18 10*6/uL 4.35-5.85 Venous blood hemoglobin measurement (mass/volume) 12.4 g/dL 11.5-16.0 Blood hematocrit (volume fraction) 38 % 35-52 Automated erythrocyte mean corpuscular volume 90 [foz_us] 80-99 Automated erythrocyte mean corpuscular hemoglobin (mass per erythrocyte) 30 pg 25-34 Automated erythrocyte mean corpuscular hemoglobin concentration measurement ( mass/volume) 33 g/dL 32-36 Automated erythrocyte distribution width ratio 13.6 % 10.0-14.5 Automated blood platelet count (count/volume) 197 10*3/uL 130-400 Automated blood platelet mean volume measurement 10.5 [foz_us] 7.4-10.4 Automated blood neutrophils/100 leukocytes 61 % 42-75 Automated blood lymphocytes/100 leukocytes 24 % 12-44 Blood monocytes/100 leukocytes 13 % 0-12 Automated blood eosinophils/100 leukocytes 2 % 0-10 Automated blood basophils/100 leukocytes 1 % 0-10 Blood neutrophils automated count (number/volume) 4.9 10*3 1.8-7.8 Blood lymphocytes automated count (number/volume) 1.9 10*3 1.0-4.0 Blood monocytes automated count (number/volume) 1.1 10*3 0.0-1.0 Automated eosinophil count 0.1 10*3/uL 0.0-0.3 Automated blood basophil count (count/volume) 0.0 10*3/uL 0.0-0.1 Whole blood basic metabolic panel - 08/28/17 06:05 Serum or plasma sodium measurement (moles/volume) 140 mmol/L 135-145 Serum or plasma potassium measurement (moles/volume) 3.9 mmol/L 3.6-5.0 Serum or plasma chloride measurement (moles/volume) 107 mmol/L 98-107 Carbon dioxide 25 mmol/L 21-32 Serum or plasma anion gap determination (moles/volume) 8 mmol/L 5-14 Serum or plasma urea nitrogen measurement (mass/volume) 8 mg/dL 7-18 Serum or plasma creatinine measurement (mass/volume) 0.70 mg/dL 0.60-1.30 Serum or plasma urea nitrogen/creatinine mass ratio 11 NRG Serum or plasma creatinine measurement with calculation of estimated glomerular filtration rate > NRG Serum or plasma glucose measurement (mass/volume) 102 mg/dL 70-105 Serum or plasma calcium measurement (mass/volume) 8.7 mg/dL 8.5-10.1 Magnesium - 08/28/17 06:05 Magnesium 2.1 mg/dL 1.8-2.4 Lipid 1996 panel - 08/28/17 06:05 Serum or plasma triglyceride measurement (mass/volume) 106 mg/dL <150 Serum or plasma cholesterol measurement (mass/volume) 124 mg/dL < 200 Serum or plasma cholesterol in HDL measurement (mass/volume) 44 mg/ dL 40-60 Cholesterol in LDL [mass/volume] in serum or plasma by direct assay 65 mg/dL 1-129 Serum or plasma cholesterol in VLDL measurement (mass/volume) 21 mg/ dL 5-40 THYROID STIMULATING HORMONE - 08/28/17 06:05 THYROID STIMULATING HORMONE 1.92 u[iU]/mL 0.35-4.94 Whole blood basic metabolic panel - 08/29/17 05:51 Serum or plasma sodium measurement (moles/volume) 140 mmol/L 135-145 Serum or plasma potassium measurement (moles/volume) 3.5 mmol/L 3.6-5.0 Serum or plasma chloride measurement (moles/volume) 107 mmol/L 98-107 Carbon dioxide 24 mmol/L 21-32 Serum or plasma anion gap determination (moles/volume) 9 mmol/L 5-14 Serum or plasma urea nitrogen measurement (mass/volume) 10 mg/dL 7-18 Serum or plasma creatinine measurement (mass/volume) 0.71 mg/dL 0.60-1.30 Serum or plasma urea nitrogen/creatinine mass ratio 14 NRG Serum or plasma creatinine measurement with calculation of estimated glomerular filtration rate > NRG Serum or plasma glucose measurement (mass/volume) 109 mg/dL 70-105 Serum or plasma calcium measurement (mass/volume) 8.9 mg/dL 8.5-10.1 Encounters ACCT No. Visit Date/Time Discharge Status Pt. Type Provider Facility Loc./Unit Complaint [id number] 08/30/2018 05:57:00 08/30/2018 13:42:00 DIS Outpatient DWAIN FUNES MD [facility] PREOP COLONOSCOPY/EGD [id number] 06/14/2018 07:15:00 06/14/2018 23:59:59 CLS Outpatient KEE CRAWFORD APRN [facility] RAD SCREENING [id number] 11/02/2017 14:38:00 11/02/2017 23:59:59 CLS Outpatient ISAIAS ELMORE MD [facility] RAD R05 [id number] 10/01/2017 13:00:00 10/01/2017 13:49:00 DIS Outpatient JACQUELYN MADRIGAL SYSTEMS CONSULTANT [facility] SLEEP G47.33 OBSTRUCTIVE SLEEPA APNEA [id number] 09/20/2017 10:35:00 09/20/2017 23:59:59 CLS Outpatient CHEYANNE GRIFFITH FACC, BING KRISHNA CCDS [facility] CARD I48.2 CHRONIC ATRIAL FIBRILLATION [id number] 09/05/2017 16:13:00 09/05/2017 23:59:59 CLS Outpatient DERRICK MASONP [facility] LAB I50.9 [id number] 08/27/2017 11:00:00 08/29/2017 13:30:00 DIS Inpatient JOSE GRIFFITH, AMBROCIO Dumont [facility] 4TH NEW ONSET A-FIB,SOB, CHEST TIGHTNESS R/O ACS [id number] 08/08/2017 15:15:00 08/08/2017 23:59:59 CLS Outpatient KEE CRAWFORD APRN [facility] RAD J18.9 [id number] 08/02/2017 10:03:00 08/02/2017 23:59:59 CLS Outpatient KEE CRAWFORD FRONT END ENGINEER [facility] RAD PNEUMONIA [id number] 07/25/2017 16:45:00 07/25/2017 19:21:00 DIS Emergency LAUREN GRIFFITH, TYLER Wallace [facility] ER CHEST CONGESTION [id number] 06/13/2017 10:39:00 06/13/2017 23:59:59 CLS Outpatient ISAIAS ELMORE MD [facility] RAD SCREENING Z12.31 [id number] 01/01/2017 16:00:00 01/01/2017 23:59:59 CLS Outpatient KEE CRAWFORD APRN [facility] RAD ACCIDENT @ HOME ON [id number] 06/25/2015 09:14:00 08/25/2015 00:01:00 DIS Outpatient ISAIAS ELMORE MD [facility] CARD PALPATATIONS [id number] 03/01/2015 14:02:00 03/01/2015 23:59:59 CLS Outpatient ISAIAS ELMORE MD [facility] RAD SCREENING [id number] 12/16/2013 13:46:00 12/16/2013 23:59:59 CLS Outpatient KEE CRAWFORD APRN [facility] RAD 6 MONTH F/U [id number] 05/27/2013 14:37:00 05/27/2013 23:59:59 CLS Outpatient JÚNIOR KHAN [facility] RAD ABN MAMMO [id number] 09/06/2018 12:00:00 PEN Preadmit DWAIN FUNES MD [facility] ENDO ANEMIA/+BLOOD IN STOOLS [id number] 09/19/2017 05:00:04 Document Registration [id number] 09/18/2017 05:00:07 Document Registration [id number] 09/17/2017 05:02:49 Document Registration [id number] 09/16/2017 05:03:26 Document Registration [id number] 09/15/2017 05:02:55 Document Registration [id number] 09/14/2017 05:00:05 Document Registration [id number] 09/13/2017 05:00:04 Document Registration [id number] 09/12/2017 11:26:08 Document Registration [id number] 09/12/2017 05:00:07 Document Registration [id number] 11/25/2012 13:30:00 Document Registration [id number] 11/01/2012 11:08:00 Document Registration [id number] 10/26/2011 08:57:00 Document Registration [id number] 06/08/2011 09:11:00 Document Registration [id number] 10/25/2010 09:34:00 Document Registration [id number] 10/12/2009 09:06:00 Document Registration [id number] 06/26/2015 03:34:25 ACT Document Registration
--- NOTE | 2018-09-06 17:11 | OPERATIVE REPORT ---
DATE OF SERVICE: 09/06/2018 ATTENDING PRIMARY CARE PHYSICIAN: Dr. Cline. PREOPERATIVE DIAGNOSES: Epigastric pain, reflux, history of polyp, screening colonoscopy. POSTOPERATIVE DIAGNOSES: Reflux esophagitis stage II, a small hiatal hernia, less than 1 cm in size, moderate severity gastritis. No formal ulcerations, polyps or any neoplasms. Pylorus and duodenum appeared normal. Chronic stage I external and internal hemorrhoids. The remainder of the colon was normal. PROCEDURE: EGD with biopsy, colonoscopy. SURGEON: Dwain Funes MD ANESTHESIA: Conscious sedation. ESTIMATED BLOOD LOSS: Minimal. FINDINGS: EGD, reflux esophagitis stage II with no ulcerations or strictures. Small hiatal hernia, less than 1 cm in size. There was moderate severity gastritis more towards the stomach antrum with no formal ulcerations, polyps or any neoplasms. There were no distal obstructions. Colonoscopy, chronic stage I external and internal hemorrhoids. The remainder of the colon and rectum were normal. No polyps identified. DISPOSITION: The patient tolerated the procedure well. INDICATIONS FOR PROCEDURE: The patient is a 77-year-old female, who was seen by her primary care physician and had some laboratory work performed and found to be slightly anemic. She underwent a Hemoccult test, which was positive as well. Her last colonoscopy was greater than 10 years ago and she does remember having 1 polyp, which was benign. She does not report any family history of colon cancer. She does report a history of gastroesophageal reflux disease, which has worsened with epigastric discomfort that does radiate towards the back. She does not report any nausea or vomiting. She has taken Protonix 40 mg daily at this time. DESCRIPTION OF PROCEDURE: The patient was brought to the endoscopy suite and laid in the left lateral decubitus position. After adequate IV pain and sedating medications and conscious sedation anesthesia, the mouthpiece was applied. The endoscope was placed in the mouth, visualizing the pharynx and hypopharyngeal region. Vocal cords, epiglottis and vallecula identified and appeared to be normal. The endoscope was then gently intubated in the esophageal opening and esophagus insufflated. The endoscope was then advanced to the first, second and third portion of the esophagus at the GE junction, a reflux esophagitis stage II identified. There were no ulcers or strictures identified in this region. A biopsy was taken with forceps at the GE junction with visualization of good hemostasis. The endoscope was then easily advanced into the stomach and endoscope retroflexed, visualizing a small hiatal hernia of approximately 1 cm in size. There was moderate severity gastritis more focused towards the stomach antrum; however, no ulcerations, polyps or any neoplasms identified. A biopsy was taken of the stomach antrum with forceps to rule out H. pylori with visualization of good hemostasis. The endoscope was then advanced to the pylorus into the first and second portion of the duodenum, which appeared normal with no distal obstructions. The endoscope was then slowly withdrawn while taking a second look and suctioning of residual air with no additional findings. The patient tolerated this portion of the procedure well. We will recommend continuation of the necessary lifestyle and diet accommodation including small and more frequent meals, avoidance of eating at night as well as head elevation while lying supine. She also needs to avoid caffeinated beverages, spicy, greasy and acidic foods. We also want her to continue Protonix 40 mg daily and we will also add Carafate 1 g q.i.d. for 2 weeks and then on p.r.n. basis. We also suspect that there is a potential for a gallbladder etiology and we will also schedule her for an ultrasound and if negative for stones then proceed with a HIDA scan. Under the same anesthesia, we then proceeded with the colonoscopy portion of the procedure. A digital rectal examination was performed, which revealed chronic stage I external and internal hemorrhoids, not actively edematous nor inflamed and no bleeding. Normal sphincter tone was felt and there were no palpable masses. The endoscope was then intubated to the anus and rectum gently insufflated. The endoscope was then advanced to the valves of Cummings and rectum with no polyps or any neoplasms identified. We then proceeded through the sigmoid colon where no diverticulosis identified. The endoscope was then advanced to the remainder of the descending, transverse and ascending colon and the cecum. These segments were normal. There were no polyps or any neoplasms identified as well as no bleeding sources identified. The endoscope was then slowly withdrawn while taking a second look and suctioning of residual air with no additional findings. The patient tolerated the procedure well. We will recommend continued medical management with high fiber diet with at least 25 g of fiber per day to promote soft stools on a daily basis. There were no polyps identified and she does not have any family history of colon cancer and she does not need another colonoscopy for another 10 years; however, sooner if she becomes symptomatic. Job ID: [id number] DocumentID: [id number] Dictated Date: 09/06/2018 12:39:50 Environmental Director Date: 09/06/2018 17:10:47 Dictated By: DWAIN FUNES MD MTDD
== END 2018-09-06 13:20 | disposition home or self-care (01) ==
LOC: ENDO 10:49
PROVIDERS: ATTEND Surgery
DX: K21.0 Gastro-esophageal reflux disease with esophagitis (principal); K44.9 Diaphragmatic hernia without obstruction or gangrene; K29.70 Gastritis, unspecified, without bleeding; R19.5 Other fecal abnormalities; K64.0 First degree hemorrhoids; D64.9 Anemia, unspecified; Z86.010 Personal history of colon polyps; I48.91 Unspecified atrial fibrillation; I10 Essential (primary) hypertension; Z86.73 Personal history of transient ischemic attack (TIA), and cerebral infarction without residual deficits; Z79.01 Long term (current) use of anticoagulants; Z79.899 Other long term (current) drug therapy
CPT/HCPCS: 88305

== ENCOUNTER → 2018-09-23 | Outpatient (CLI) | payer MEDICARE ==
[~2018-09-23] MED LIST changes: +SUCR1TAB36 PO
--- NOTE | 2018-09-23 08:50 | Diagnostic Imaging Report ---
PROCEDURE: US Gallbladder. TECHNIQUE: Multiple real-time grayscale images were obtained over the right upper quadrant in various projections. INDICATION: Right upper quadrant pain. FINDINGS: Liver parenchyma is homogeneous with normal echotexture. Gallbladder is clear with no stones or wall thickening. Common duct is not dilated. Pancreas is largely obscured by bowel gas. Right kidney measures 10.8 cm in length and appears normal. There is no ascites. IMPRESSION: Negative gallbladder sonogram. Dictated by: Dictated on workstation # [id number]
== END ==
LOC: RAD 06:47
PROVIDERS: ATTEND Surgery
DX: R10.11 Right upper quadrant pain (principal)
CPT/HCPCS: 76705

== ENCOUNTER → 2018-10-03 | Outpatient (CLI) | payer MEDICARE ==
[~2018-10-03] MED LIST changes: +CATHETER FLUSH 10 ML SYR IV PRN
--- NOTE | 2018-10-03 14:33 | Diagnostic Imaging Report ---
Hepatobiliary scan with ejection fraction. Indication: Abdominal pain. The study was performed following administration of 4.9 mCi of Choletec. 8 ounces of Ensure was also utilized. There are no prior nuclear medicine studies available for comparison. The gallbladder ultrasound exam performed on 09/23/2018 failed to show any sign of cholelithiasis or acute cholecystitis. On this exam there is uptake of the radiotracer by the gallbladder before 30 minutes. This would weigh against the diagnosis of acute cholecystitis. There is also extension of the radiotracer into the small bowel, indicating the common bile duct is not obstructed. The ejection fraction is 77.4% (normal greater than 35%). Impression: 1. There is no evidence for acute cholecystitis or for obstruction of the common bile duct. 2. The ejection fraction is 77.4% and well within normal limits. Dictated by: Dictated on workstation # [id number]
== END ==
LOC: CARD 08:39
PROVIDERS: ATTEND Surgery
DX: R10.13 Epigastric pain (principal); R10.11 Right upper quadrant pain
CPT/HCPCS: 78227

== ENCOUNTER → 2018-10-22 | Outpatient (CLI) | payer MEDICARE ==
[~2018-10-22] MED LIST changes: -CATHETER FLUSH 10 ML SYR IV PRN
--- NOTE | 2018-10-22 18:15 | Diagnostic Imaging Report ---
INDICATION: Knee pain post fall at home. TECHNIQUE: Four views of the left knee. CORRELATION STUDY: None. FINDINGS: Joint space narrowing is noted both medially and to a lesser degree laterally. Marginal osteophyte formation is noted medially. There is narrowing of the patellofemoral compartment particularly laterally. Spur like formation about the patella is present. There is rather significant edema about the anterior aspect of the knee. No evidence for lipohemarthrosis. IMPRESSION: 1. Rather pronounced soft tissue edema anteriorly. Negative for acute bony abnormality of the knee. Advanced degenerative changes with multifocal joint space narrowing. Dictated by: Dictated on workstation # [id number]
== END ==
LOC: RAD 15:58
PROVIDERS: ATTEND Nurse Practitioner
DX: M17.12 Unilateral primary osteoarthritis, left knee (principal); W19.XXXA Unspecified fall, initial encounter; Y92.009 Unspecified place in unspecified non-institutional (private) residence as the place of occurrence of the external cause
CPT/HCPCS: 73564

== ENCOUNTER → 2018-12-06 | Outpatient (CLI) | payer MEDICARE | LOC: CARD 11:44 | PROVIDERS: ATTEND Internal Medicine Cardiovascular Disease | DX: I50.32 Chronic diastolic (congestive) heart failure (principal); I48.2 Chronic atrial fibrillation; I65.23 Occlusion and stenosis of bilateral carotid arteries; G47.33 Obstructive sleep apnea (adult) (pediatric); Z86.79 Personal history of other diseases of the circulatory system; I08.3 Combined rheumatic disorders of mitral, aortic and tricuspid valves | CPT/HCPCS: 93306 ==

== ENCOUNTER → 2019-06-17 | Outpatient (CLI) | payer MEDICARE ==
[~2019-06-17] MED LIST changes: -AMLO10TA6 PO; +AMLO10TA7 PO
--- NOTE | 2019-06-17 10:44 | Diagnostic Imaging Report ---
EXAMINATION: Digital mammogram INDICATION: Bilateral screening with 3D tomosynthesis and CAD. This study is compared to the prior exams of 06/14/2018, 06/13/2017 and 03/01/2015. At this time there are no current complaints. The current study was also evaluated with a Computer Aided Detection (CAD) system. FINDINGS: The fibroglandular tissue in both breasts is heterogeneously dense. This does limit the sensitivity of this exam. Overall, there does not appear to have been any significant change when compared to the prior study. No primary or secondary sign of malignancy is noted. IMPRESSION: There is no radiographic evidence for malignancy. ACR BI-RADS Category 1: Negative. Result letter will be mailed to the patient. Note: At least 10% of breast cancer is not imaged by mammography. Dictated by: Dictated on workstation # [id number]
== END ==
LOC: RAD 08:46
PROVIDERS: ATTEND Nurse Practitioner
DX: Z12.31 Encounter for screening mammogram for malignant neoplasm of breast (principal)
CPT/HCPCS: 77067

== ENCOUNTER → 2020-01-08 | Outpatient (CLI) | payer MEDICARE ==
[~2020-01-08] MED LIST changes: -METO-370 PO; -METO-395 PO; +METO50TA7 PO; +SIMV10TA26 PO; -SIMV10TA3 PO
--- NOTE | 2020-01-08 15:07 | Diagnostic Imaging Report ---
EXAMINATION: Right knee radiographs, 3 views. COMPARISON: None. HISTORY: 79-year-old female, right knee pain increasing for the past week. FINDINGS: There is severe patellofemoral compartment joint space loss. There is a probable trace to small knee joint effusion. The medial and lateral compartments are not significantly narrowed. There is no identified acute fracture. IMPRESSION: Severe patellofemoral compartment arthritis with probable trace to small knee joint effusion. Dictated by: Dictated on workstation # [id number]
== END ==
LOC: RAD 14:22
PROVIDERS: ATTEND Nurse Practitioner
DX: M17.11 Unilateral primary osteoarthritis, right knee (principal)
CPT/HCPCS: 73562

== ENCOUNTER → 2022-03-10 | Outpatient (CLI) | payer MEDICARE ==
[~2022-03-10] MED LIST changes: +AMLO-251 PO; -AMLO10TA7 PO; +AMT10T PO; +FEXO-249 PO; -FEXO-46 PO; -LISI-552 PO; +LISI20TA26 PO; -PANT40TA3 PO; +PANT40TA52 PO
--- NOTE | 2022-03-10 11:10 | Diagnostic Imaging Report ---
PROCEDURE: CT urinary tract, rule out kidney stone. TECHNIQUE: Multiple contiguous axial images were obtained through the abdomen and pelvis without the use of intravenous contrast. Auto Exposure Controls were utilized during the CT exam to meet ALARA standards for radiation dose reduction. INDICATION: Flank pain There is a small amount of pleural fluid in the lower right thorax. Unenhanced images of the liver reveal occasional subcentimeter lucencies which likely represent cysts. Gallbladder wall appears somewhat prominent and ill-defined without significant surrounding inflammation. There is no evidence of biliary ductal dilatation. There is no evidence of pancreatic, adrenal gland or focal splenic abnormality. Unenhanced images of the kidneys reveal no suspicious lesion or calculus. There is no hydronephrosis or hydroureter. No bladder stone is appreciated. There are calcified phleboliths bilaterally in the pelvis. There is no evidence of appendiceal inflammation. Note is made of lower lumbar degenerative disc disease with grade 1 anterolisthesis of L4 on L5. There is mild aortoiliac atherosclerotic calcification. IMPRESSION: Suggestion of mild mural thickening at the gallbladder. This could indicate acute cholecystitis and clinical correlation to symptoms would be useful. This could be further assessed with ultrasonography or hepatobiliary imaging if oriented. Otherwise, there is no evidence of obstructive uropathy or other acute abnormality within the abdomen or pelvis. Dictated by: Dictated on workstation # [id number]
== END ==
LOC: RAD 11:00
PROVIDERS: ATTEND Nurse Practitioner Family
DX: R10.9 Unspecified abdominal pain (principal)
CPT/HCPCS: 74176

== ENCOUNTER → 2022-03-17 | Outpatient (CLI) | payer MEDICARE ==
--- NOTE | 2022-03-17 09:32 | Diagnostic Imaging Report ---
CLINICAL INDICATION: Patient with gallbladder wall thickening. EXAM: Right upper quadrant ultrasound. COMPARISON: Right upper quadrant ultrasound dated 09/23/2018. FINDINGS: Patient body habitus and overlying bowel gas obscures the abdominal aorta and most of the pancreas which is not well evaluated. IVC shows no significant abnormality. There are small cystic areas involving the left lobe of liver. There are 2 that measure 1.0 cm in greatest dimension each. Remainder of the liver is unremarkable. Liver surface is smooth. The liver measures 16.1 cm. The main portal vein demonstrates hepatopetal flow. There is gallbladder wall thickening measuring 3 mm. There is no gallstones or sludge. There is no sonographic Guo sign. There is no pericholecystic fluid. There is no intrahepatic ductal dilation. Common bile duct measures 6 mm which is within normal limits for patient's age. Right kidney shows no hydronephrosis or mass. Right kidney measures 9.7 cm in craniocaudal dimension. There is no abdominal ascites. IMPRESSION: 1: Patient body habitus and overlying bowel gas obscures pancreas and abdominal aorta and are unable to be evaluated. 2: Nonspecific gallbladder wall thickening is seen which may be related to gallbladder contraction. The gallbladder is mildly fluid filled. There is no stones or sonographic Guo sign. If there is right upper quadrant pain and concern for chronic cholecystitis, then nuclear medicine HIDA study may help better evaluate. 3: The remainder of this exam is unremarkable. Dictated by: Dictated on workstation # [id number]
== END ==
LOC: RAD 08:00
PROVIDERS: ATTEND Nurse Practitioner Family
DX: K82.9 Disease of gallbladder, unspecified (principal)
CPT/HCPCS: 76705

== ENCOUNTER → 2022-05-01 | Outpatient (CLI) | payer MEDICARE ==
[~2022-05-01] MED LIST changes: +CATHETER FLUSH 10 ML SYR IVP PRN; -FEXO-249 PO; +NF-ALLE180 PO
--- NOTE | 2022-05-01 12:57 | Diagnostic Imaging Report ---
INDICATION: Right upper quadrant pain EXAMINATION: HIDA scan 05/01/2022 FINDINGS: After uneventful administration of 5.07 mCi of technetium 99m Choletec intravenously, subsequent imaging is performed with prompt homogeneous uptake throughout the liver. The gallbladder and small bowel seen within 60 minutes. At 60 minutes Ensure administered orally with continued imaging performed. Ejection fraction is calculated at 15% IMPRESSION: 1. No obstructive process. 2. Low ejection fraction of 15% Dictated by: Dictated on workstation # [id number]
== END ==
LOC: CARD 10:00
PROVIDERS: ATTEND Surgery
DX: R10.11 Right upper quadrant pain (principal)
CPT/HCPCS: 78227; A9537

== ENCOUNTER 2022-05-05 05:29 | Outpatient (CLI) | payer MEDICARE ==
[~2022-05-05] VITALS: Ht 152.4 cm; Wt 69.1 kg
[~2022-05-05 05:29] MED LIST changes: -CATHETER FLUSH 10 ML SYR IVP PRN
[2022-05-05] MEDS ORDERED: LOSA50TA63 PO (13:02)
== END 2022-05-05 13:22 | disposition home or self-care (01) ==
LOC: PREOP 05:29
PROVIDERS: ATTEND Surgery
DX: Z01.818 Encounter for other preprocedural examination (principal)

== ENCOUNTER → 2022-05-19 | Outpatient (CLI) | payer MEDICARE ==
[~2022-05-19] MED LIST changes: +HYDR-3817 PO; +LOSA50TA63 PO
== END | disposition home or self-care (01) ==
LOC: PREOP 05:31
PROVIDERS: ATTEND Surgery
DX: Z01.818 Encounter for other preprocedural examination (principal)

== ENCOUNTER 2022-05-25 10:16 | Day surgery (SDC) | payer MEDICARE ==
--- NOTE | 2022-05-19 11:54 | HISTORY AND PHYSICAL ---
DATE OF SERVICE: DATE OF ADMISSION: 05/25/2022. ATTENDING PRIMARY CARE PHYSICIAN: Dr. Levi Cline. HISTORY OF PRESENT ILLNESS: The patient is an 81-year-old female, who is known to us. She was seen in 09/2018 for anemia as well as a Hemoccult positive test. She also reported a history of gastroesophageal reflux disease and epigastric discomfort. On 09/06/2018, she underwent an EGD with colonoscopy. The findings were reflux esophagitis stage II, small hiatal hernia, moderate severity gastritis with no formal ulcerations, neoplasms or any polyps identified. Colonoscopy revealed a stage I external and internal hemorrhoids. On today's visit, she reports pain in the right upper abdominal quadrant that is severe. It does radiate towards her back. She denies any nausea or vomiting. She did present to the emergency room in February of this year for the pain and underwent a CT scan, which did show a mild mural thickening of the gallbladder. She then underwent an ultrasound of the gallbladder, which did show nonspecific gallbladder wall thickening. She then was sent for a HIDA scan, which did show a low ejection fraction of 15% consistent with a biliary dyskinesia. PAST MEDICAL HISTORY: Hypertension, hyperlipidemia, atrial fibrillation, anxiety, and obstructive sleep apnea. PAST SURGICAL HISTORY: LEEP procedure. ALLERGIES: No known drug allergies. MEDICATIONS: Protonix 40 mg, metoprolol 50 mg, potassium chloride 10 mEq, aspirin 81 mg, losartan potassium 50 mg, amlodipine 5 mg, Eliquis 5 mg, triamterene/hydrochlorothiazide 75/50 mg, simvastatin 10 mg, fish oil, calcium, multivitamin, and glucosamine. SOCIAL HISTORY: Negative for tobacco smoke. Negative for alcohol. FAMILY HISTORY: Mother and father, stroke and hypertension. REVIEW OF SYSTEMS: Well-nourished female, in no acute distress. She is not experiencing any shortness of breath or difficulty breathing. No chest pain, palpitations or diaphoresis. No nausea or vomiting. She does report right upper quadrant abdominal pain with radiation towards her back. No diarrhea or constipation. No red blood per rectum. No dark tarry stools. No fever or chills. No recent inadvertent weight loss. All other review of systems negative. PHYSICAL EXAMINATION: VITAL SIGNS: Blood pressure is 137/68. Current weight is 162 pounds at 5 feet 0 inches. CHEST: Clear. Good breath sounds bilaterally. HEART: Regular, no murmurs. EXTREMITIES: No lower extremity edema. Negative Homans sign. HEENT: No scleral icterus. NECK: No cervical lymphadenopathy. ABDOMEN: Soft and nondistended. There is mild tenderness upon deep palpation in the right upper abdominal quadrant. No palpable masses. No peritoneal signs. SKIN: Warm, dry and pink. NEUROLOGIC: Awake, alert and oriented x3. ASSESSMENT AND PLAN: An 81-year-old female with a symptomatic biliary dyskinesia. The risks and benefits of the procedure as well as the procedure and home care instructions were explained to the patient. At this time, we will proceed with scheduling her for a laparoscopic cholecystectomy. Job ID: [id number] DocumentID: [id number] Dictated Date: 05/19/2022 09:38:19 Tool Crib Manager Date: 05/19/2022 11:53:27 Dictated By: ENRI MALDONADO APRN
[2022-05-25] VITALS (9 sets, daily range): BP systolic 127–161; BP diastolic 48–70
[~2022-05-25] VITALS: Ht 152.4 cm; Wt 69.1 kg
[~2022-05-25 10:16] MED LIST changes: -HYDR-3817 PO
[2022-05-25] MEDS ORDERED: ceFAZolin 2 GM IV Premixed 50 ML ONE (10:48)
[2022-05-25] MEDS ORDERED: LIDOCAINE/EPI 2% 1:100,00 (XYLOCAINE) 20 ML VIAL ONE (10:51)
--- NOTE | 2022-05-25 10:57 | Progress Note-Pre Operative ---
Pre-Operative Progress Note H&P Reviewed The H&P was reviewed, patient examined and no changes noted. Date Seen by Provider: May 25, 2022 Time Seen by Provider: 10:50 Date H&P Reviewed: May 25, 2022 Time H&P Reviewed: 10:45 Pre-Operative Diagnosis: Biliary dyskinesia NERI MALDONADO APRN May 25, 2022 10:56
[2022-05-25] MEDS ORDERED: HYDR-3817 PO (10:58)
--- NOTE | 2022-05-25 10:58 | Discharge Inst-Surgical ---
D/C Lap Instructions-KIDO Reconcile Patient Problems Problems Reviewed?: Yes New, Converted, or Re-Newed RX: RX on Chart Follow Up Appt in 2 weeks Activity as tolerated No driving for 24 hours No driving while on pain medications Incentive Spirometry use every 2 hours while awake Regular Diet Symptoms to Report: Fever over 101 degree F, Nausea/Vomiting Infection Signs and Symptoms to report: Increased redness, Foul odor of wound, Increased drainage Bathing instructions: May shower Operative Area Clean/Dry; Keep incision clean/dry If any problems/questions: Contact your physician or go to Emergency Room NERI MALDONADO APRN May 25, 2022 10:58
[2022-05-25] MEDS ORDERED: ACETAMINOPHEN 325 MG TABLET PO PRN (11:00)
[2022-05-25] MEDS ORDERED: HYDROcodone/APAP 5 MG/325 MG (LORTAB) TAB PO ONE (11:00)
[2022-05-25] MEDS ORDERED: ONDANSETRON 4 MG/2 ML (SDV) Z0FRAN IVP PRN ×2 (11:00→14:00)
[2022-05-25] MEDS ORDERED: morphine INJ 10 MG/ML 1ML (SYR OR VIAL) IVP PRN (11:00)
[2022-05-25] MEDS ORDERED: BUP/EPI 0.5% 1:200,000 (MARCAINE) 10ML VIAL IJ ONE (11:08)
[2022-05-25] MEDS ORDERED: ceFAZolin 2 GM IV Premixed 50 ML IV ONE (11:15)
[2022-05-25] MEDS ORDERED: LIDOCAINE PF 2% 5 ML (XYLOCAINE) VIAL ONE (11:51)
[2022-05-25] MEDS ORDERED: GLYCOPYRROLATE 0.2 MG/ML (ROBINUL) 2 ML VIAL ONE (11:51)
[2022-05-25] MEDS ORDERED: NEOSTIGMINE 3 MG/3 ML VIAL ONE (11:51)
[2022-05-25] MEDS ORDERED: proPOfol 200 MG/20 ML (DIPRIVAN) VIAL IV ONE (11:51)
[2022-05-25] MEDS ORDERED: ONDANSETRON 4 MG/2 ML (SDV) Z0FRAN ONE (11:51)
[2022-05-25] MEDS ORDERED: fentaNYL INJ 100 MCG/2 ML AMP ONE (11:51)
[2022-05-25] MEDS ORDERED: ROCURONIUM 50 MG/5 ML (ZEMURON) VIAL IV ONE (11:52)
--- NOTE | 2022-05-25 13:19 | Progress Note-Post Operative ---
Post-Operative Progess Note Surgeon (s)/Special Shopper (s) Surgeon DWAIN FUNES MD Special Shopper: jojo joseph MACHINE WIPER Pre-Operative Diagnosis Abdominal pain Post-Operative Diagnosis sx biliary dyskinesia Procedure & Operative Findings Date of Procedure 05/25/22 Procedure Performed/Findings laparoscopic cholecystectomy Anesthesia Type get Estimated Blood Loss Estimated blood loss (mL): minimal Specimens/Packing Specimens Removed gallbladder DWAIN FUNES MD May 25, 2022 13:19
[2022-05-25] MEDS ORDERED: morphine INJ 10 MG/ML 1ML (SYR OR VIAL) IVP ONE (14:00)
--- NOTE | 2022-05-25 14:54 | Anesthesia-General Post-Op ---
General Patient Condition Mental Status/LOC: Same as Preop Cardiovascular: Satisfactory Nausea/Vomiting: Absent Respiratory: Satisfactory Pain: Controlled Complications: Absent Post Op Complications Complications None Follow Up Care/Instructions Patient Instructions None needed. Anesthesia/Patient Condition Patient Condition Patient is doing well, no complaints, stable vital signs, no apparent adverse anesthesia problems. No complications reported per nursing. IVNCENT SETHI DO May 25, 2022 14:54
--- NOTE | 2022-05-25 19:19 | OPERATIVE REPORT ---
DATE OF SERVICE: 05/25/2022 PREOPERATIVE DIAGNOSIS: Symptomatic biliary dyskinesia. POSTOPERATIVE DIAGNOSIS: Symptomatic biliary dyskinesia. PROCEDURE: Laparoscopic cholecystectomy. SURGEON: Dwain Funes MD. POWER SYSTEM ENGINEER: Luis Armando Fuentes APRN. ANESTHESIA: General endotracheal. ESTIMATED BLOOD LOSS: Minimal. FINDINGS: small stones, very thick bile. DISPOSITION: The patient tolerated the procedure well. INDICATIONS: The patient is an 81-year-old female known to us. We had seen her before for endoscopy. She was referred for right upper abdominal quadrant pain, which was severe with radiation towards the back and she presented to the Emergency Department in February of this year and underwent a CT scan, which did show thickening of the gallbladder wall. We then proceeded with an ultrasound, which did not show any gallstones; however, a HIDA scan did show very low ejection fraction of 15% consistent with a biliary dyskinesia. DESCRIPTION OF PROCEDURE: The patient was brought to the operating room, laid supine on the table. After adequate IV pain and sedative medications and general endotracheal intubation, the abdomen was prepped and draped in standard surgical fashion. A 1% lidocaine with epinephrine was then used to anesthetize the overlying skin in the left upper abdominal quadrant and a transverse skin incision made using a 15 blade. An 0 silk suture was applied to the medial aspect of incision for retraction and a Veress needle inserted with a low opening pressure of 0 mmHg. The abdomen was then insufflated to 15 mmHg pressure. The Veress needle removed and a 5 mm XL trocar placed followed by a 5 mm 45-degree angle laparoscope visualizing the peritoneal cavity. A 4-quadrant abdominal exploration was performed. There was a thick greater omentum, slight nodularity of the liver, mildly distended gallbladder with omental adhesions towards the gallbladder. Under direct visualization, we then proceeded to place a supraumbilical 10 mm port after the skin and peritoneal lining were anesthetized using 0.5% Marcaine with epinephrine and a transverse skin incision made using a 15 blade. In a similar manner, a right upper abdominal quadrant 5 mm port was placed. The patient was then placed in a reverse Trendelenburg position as well as plane right side up, left side down. The fundus of the gallbladder was then retracted anteriorly and superiorly. The omental adhesions were then taken down using electrocautery on the hook instrument as well as blunt dissection. The hepatoduodenal ligament was then dissected opened using the hook instrument as well as a [place] dissector identifying the entire critical view of safety including the triangle of Calot as well as the cystic duct and artery as the only two structures going to gallbladder as well as the cystic plate behind the proximal gallbladder. A timeout was then taken and the cystic duct and artery were then clipped proximally, distally and cut with EndoShears. The gallbladder was then dissected off the liver bed using cautery on hook instrument with visualization of good hemostasis as well as no leaking ducts of Luschka. The gallbladder was removed through the 10 mm port site using an EndoCatch bag. The 10 mm port site fascia and peritoneum were then closed under direct visualization using a Ovidio-Liborio device and 0 Vicryl suture. The abdomen was then desufflated and remaining ports removed. All skin incisions were closed using 4-0 Monocryl running subcuticular sutures. Wounds were then cleaned and covered with Dermabond. The patient tolerated the procedure well. We will start IV normal pain medication as well as a clear liquid diet. When she is tolerating clears, has good pain control with oral pain medications, ambulating well, we will discharge her home where she will be instructed to do no heavy lifting or exertion for the next two weeks. Job ID: [id number] DocumentID: [id number] Dictated Date: 05/25/2022 13:14:40 Crtts Date: 05/25/2022 19:18:09 Dictated By: DWAIN FUNES MD [facility] CENTERBakari
== END 2022-05-25 15:39 | disposition home or self-care (01) ==
LOC: SDC 10:16
PROVIDERS: ATTEND Surgery
DX: K82.8 Other specified diseases of gallbladder (principal); K81.1 Chronic cholecystitis; G47.33 Obstructive sleep apnea (adult) (pediatric); Z79.01 Long term (current) use of anticoagulants; Z79.82 Long term (current) use of aspirin
CPT/HCPCS: 87081

== ENCOUNTER 2022-09-03 20:46 | Emergency (ER) | payer MEDICARE ==
[~2022-09-03] VITALS: Ht 152 cm; Wt 74.0 kg
[~2022-09-03 20:46] MED LIST changes: +HYDR-3817 PO
[2022-09-03 21:15] LABS: BASOPHILS # (AUTO) 0.1 10^3/uL (0.0-0.1); BASOPHILS % (AUTO) 1 % (0-10); EOSINOPHILS # (AUTO) 0.2 10^3/uL (0.0-0.3); EOSINOPHILS % (AUTO) 2 % (0-10); HEMATOCRIT 36 % (35-52); HEMOGLOBIN 11.9 g/dL (11.5-16.0); LYMPHOCYTES # (AUTO) 3.6 10^3/uL (1.0-4.0); LYMPHOCYTES % (AUTO) 44 % (12-44); MEAN CORPUSCULAR HEMOGLOBIN 28 pg (25-34); MEAN CORPUSCULAR HGB CONC 33 g/dL (32-36); MEAN CORPUSCULAR VOLUME 84 fL (80-99); MEAN PLATELET VOLUME 10.7 fL (9.0-12.2); MONOCYTES # (AUTO) 1.3 10^3/uL (0.0-1.0); MONOCYTES % (AUTO) 16 % (0-12); NEUTROPHILS % (AUTO) 37 % (42-75); PLATELET COUNT 209 10^3/uL (130-400); WHITE BLOOD COUNT 8.2 10^3/uL (4.3-11.0)
--- NOTE | 2022-09-03 21:18 | ED Neurological Problem ---
General Chief Complaint: Neurological Problems Stated Complaint: NUMBNESS IN RIGHT ARM & BILAT FEET Nursing Triage Note: PT TO ED W/ C/O NUMBNESS TO BILAT FEET ET ARM ONSET 2019 THIS EVENING. PT REPORTS WAS WATCHING TV UPON ONSET. PT REPORTS HX OF ANXIETY ET THINKS R/T THAT. NO OTHER C/O VOICED. Source: patient Exam Limitations: no limitations History of Present Illness Date Seen by Provider: Sep 03, 2022 Time Seen by Provider: 20:51 Initial Comments This 81-year-old woman presents to the emergency room by private vehicle accompanied by her daughter with concerns about right upper extremity numbness without weakness that occurred suddenly at approximately 2000, about 45 minutes prior to arrival. She was sitting down watching TV when she noticed the problem. 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 She also notes that she occasionally has numbness in her right hand while driving, presumably from carpal tunnel syndrome. However, her numbness today involved her entire right upper extremity and did not occur w hile driving. She is not experiencing that numbness on arrival. She did not notice any motor weakness. NIH stroke scale was performed on arrival and was 0. Patient has hypertension and atrial fibrillation for which she is anticoagulated with Eliquis. She has not yet taken her evening medications. She is moderately hypertensive on arrival with blood pressure trending down as s he rests. Dr. Perez is her mobility specialist and Dr. Elmore is her primary care provider. Allergies and Home Medications Allergies Coded Allergies: No Known Drug Allergies (Unverified , 05/05/22) Patient Home Medication List Home Medication List Reviewed: Yes Acetaminophen (Acetaminophen Extra Strength) 500 Mg Tablet, 500-1,000 MG PO Q4H PRN for PAIN-MILD, (Reported) Entered as Reported by: WILFREDO CLEMENTS on 08/27/17 1436 Amitriptyline HCl (Amitriptyline HCl) 10 Mg Tablet, 10 MG PO BID, (Reported) Entered as Reported by: WILFREDO CLEMENTS on 08/27/17 1432 Amlodipine Besylate (Amlodipine Besylate) 10 Mg Tablet, 5 MG PO DAILY, (Reported) Entered as Reported by: JOSTIN BROOKE on 08/30/18 1342 Apixaban (Eliquis) 5 Mg Tablet, 5 MG PO BID, (Reported) Entered as Reported by: JOSTIN BROOKE on 08/30/18 1342 Aspirin (Aspir 81) 81 Mg Tablet.dr, 81 MG PO DAILY, (Reported) Entered as Reported by: JOSTIN BROOKE on 08/30/18 1342 Calcium Carbonate/Vitamin D3 (Calcium 500 + D Tablet) 1 Each Tablet, 1 TAB PO BID, (Reported) Entered as Reported by: WILFREDO CLEMENTS on 08/27/17 1438 Fexofenadine HCl (Fexofenadine HCl) 180 Mg Tablet, 180 MG PO DAILY PRN for ALLERGIES, (Reported) Entered as Reported by: WILFREDO CLEMENTS on 08/27/17 1445 Glucosa Solitario 2Kcl/Chondroitin Solitario (Glucosamine & Chondroitin Cap) 1 Each Capsule, 1 CAP PO BID, (Reported) Entered as Reported by: WILFREDO CLEMENTS on 08/27/17 1438 Hydrocodone/Acetaminophen (Hydrocodone-Acetamin 7.5-325) 7.5 Mg-325 Mg Tablet, 1 EACH PO Q4H PRN for PAIN-BREAKTHROUGH Prescribed by: NERI MALDONADO on 05/25/22 1058 Losartan Potassium (Losartan Potassium) 50 Mg Tablet, 50 MG PO DAILY, (Reported) Entered as Reported by: GIA EARLY on 05/05/22 1302 Metoprolol Succinate (Metoprolol Succinate) 50 Mg Tab.er.24h, 50 MG PO DAILY, (Reported) Entered as Reported by: JOSTIN BROOKE on 08/30/18 1226 Multivit-Min/FA/Lycopene/Lut (Centrum Silver Tablet) 1 Each Tablet, 1 TAB PO DAILY, (Reported) Entered as Reported by: WILFREDO CLEMENTS on 08/27/17 1439 Coldiron 3 Polyunsat Fatty Acids (Fish Oil 1,000 mg Capsule) 1,000 Mg Cap, 1,000 MG PO BID, (Reported) Entered as Reported by: WILFREDO CLEMENTS on 08/27/17 1439 Pantoprazole Sodium (Pantoprazole Sodium) 40 Mg Tablet.dr, 40 MG PO DAILY, (Reported) Entered as Reported by: WILFREDO CLEMENTS on 08/27/17 1432 Potassium Chloride (Potassium Chloride) 10 Meq Capsule.er, 10 MEQ PO DAILY, (Reported) Entered as Reported by: JOSTIN BROOKE on 08/30/18 1226 Simvastatin (Simvastatin) 10 Mg Tablet, 10 MG PO HS, (Reported) Entered as Reported by: WILFREDO CLEMENTS on 08/27/17 1432 Triamterene/Hydrochlorothiazid (Triamterene-Hctz 75-50 mg Tab) 1 Each Tablet, 0.5 TAB PO DAILY, (Reported) Entered as Reported by: JOSTIN BROOKE on 08/30/18 1342 Review of Systems Review of Systems Constitutional: no symptoms reported Eyes: No Symptoms Reported Ears, Nose, Mouth, Throat: no symptoms reported Respiratory: no symptoms reported Cardiovascular: see HPI Gastrointestinal: no symptoms reported Genitourinary: no symptoms reported : No Musculoskeletal: no symptoms reported Skin: no symptoms reported Psychiatric/Neurological: See HPI Hematologic/Lymphatic: No Symptoms Reported Past Loyaylc-Ippyyt-Ixokui Hx Patient Social History Tobacco Use?: No Smoking Status: Never a Smoker Use of E-Cig and/or Vaping dev: No Substance use?: No Alcohol Use?: No Immunizations Up To Date First/Initial COVID19 Vaccinat: 2020 Second COVID19 Vaccination Alexis: 2020 Third COVID19 Vaccination Date: 2020 Seasonal Allergies Seasonal Allergies: No Past Medical History Surgeries: Yes (cataracts) Respiratory: Yes (SOA) Sleep Apnea (Uses CPAP) Currently Using CPAP: Yes Currently Using BIPAP: No Cardiac: Yes Atrial Fibrillation (Anticoagulated), High Cholesterol, Hypertension Neurological: Yes (NO RESIDUAL-SPEECH TEMPORARILY ??) Neuropathy, Stroke Reproductive Disorders: No Genitourinary: Yes (EVONNE) Gastrointestinal: Yes Gastroesophageal Reflux Musculoskeletal: Yes Arthritis Endocrine: No HEENT: Yes Cataract Cancer: No Psychosocial: Yes Anxiety Integumentary: Yes Psoriasis Blood Disorders: Yes (low anemic AT TIMES) Physical Exam Vital Signs Vital Signs - First Documented 09/03/22 20:48 Temp 35.7 Pulse 67 Resp 20 B/P (MAP) 181/57 (98) Pulse Ox 97 O2 Delivery Room Air Capillary Refill : Less Than 3 Seconds Height, Weight, BMI Height: 5'0.00" Weight: 158lbs. 0.0oz. 71.540954ci; 32.00 BMI Method:Stated General Appearance: WD/WN, no apparent distress HEENT: PERRL/EOMI, normal ENT inspection Neck: normal inspection Respiratory: lungs clear, normal breath sounds, no respiratory distress Cardiovascular: regular rate, rhythm, no edema, no murmur Gastrointestinal: normal bowel sounds, non tender, soft Extremities: normal inspection, no pedal edema Neurologic/Psychiatric: patternmaker hand II-XII nml as tested, no motor/sensory deficits, alert, normal mood/affect, oriented x 3 Crainal Nerves: normal hearing, normal speech, PERRL Coordination/Gait: normal finger to nose, normal gait Motor/Sensory: no motor deficit, no sensory deficit Skin: normal color, warm/dry Stroke NIH Stroke Scale Assessment Select: Initial Level of Consciousness: 0=Alert (0), Level of Consciousness- Questions: 0=Answers both month/age (0), LOC Commands: 0=Performs both tasks (0), Gaze: Normal (0), Visual Mcneal: 0=No visual loss (0), Facial Movement (Facial Paresis): 0=Normal symmetrical mnt (0), Motor Function-Arms Right: 0=No drift (0), Motor Function-Arms Left: 0=No drift (0), Motor Function-Legs Right: 0=No drift (0), Motor Function-Legs Left: 0=No drift (0), Limb Ataxia: 0=Absent (0), Sensory: 0=Normal:no loss (0), Best Language: 0=No aphasia (0), Dysarthria: 0=Normal (0), Extinction & Inattention: 0=No abnormality (0), Total: 0 Progress/Results/Core Measures Results/Orders Lab Results Laboratory Tests Test 09/03/22 20:55 09/03/22 21:56 Range/Units White Blood Count 8.2 4.3-11.0 10^3/uL Red Blood Count 4.22 3.80-5.11 10^6/uL Hemoglobin 11.9 11.5-16.0 g/dL Hematocrit 36 35-52 % Mean Corpuscular Volume 84 80-99 fL Mean Corpuscular Hemoglobin 28 25-34 pg Mean Corpuscular Hemoglobin Concent 33 32-36 g/dL Red Cell Distribution Width 14.0 10.0-14.5 % Platelet Count 209 130-400 10^3/uL Mean Platelet Volume 10.7 9.0-12.2 fL Immature Granulocyte % (Auto) 0 % Neutrophils (%) (Auto) 37 L 42-75 % Lymphocytes (%) (Auto) 44 12-44 % Monocytes (%) (Auto) 16 H 0-12 % Eosinophils (%) (Auto) 2 0-10 % Basophils (%) (Auto) 1 0-10 % Neutrophils # (Auto) 3.0 1.8-7.8 10^3/uL Lymphocytes # (Auto) 3.6 1.0-4.0 10^3/uL Monocytes # (Auto) 1.3 H 0.0-1.0 10^3/uL Eosinophils # (Auto) 0.2 0.0-0.3 10^3/uL Basophils # (Auto) 0.1 0.0-0.1 10^3/uL Immature Granulocyte # (Auto) 0.0 0.0-0.1 10^3/uL Prothrombin Time 15.3 H 12.2-14.7 SEC INR Comment 1.2 0.8-1.4 Activated Partial Thromboplast Time 44 H 24-35 SEC D-Dimer <= 0.27 0.00-0.49 UG/ML Sodium Level 137 135-145 MMOL/L Potassium Level 4.3 3.6-5.0 MMOL/L Chloride Level 103 98-107 MMOL/L Carbon Dioxide Level 20 L 21-32 MMOL/L Anion Gap 14 5-14 MMOL/L Blood Urea Nitrogen 24 H 7-18 MG/DL Creatinine 1.47 H 0.60-1.30 MG/DL Estimat Glomerular Filtration Rate 35 BUN/Creatinine Ratio 16 Glucose Level 109 H 70-105 MG/DL Calcium Level 9.5 8.5-10.1 MG/DL Corrected Calcium 9.3 8.5-10.1 MG/DL Magnesium Level 2.4 1.6-2.4 MG/DL Total Bilirubin 0.6 0.1-1.0 MG/DL Aspartate Amino Transf (AST/SGOT) 25 5-34 U/L Alanine Aminotransferase (ALT/SGPT) 18 0-55 U/L Alkaline Phosphatase 65 40-136 U/L Troponin I < 0.028 <0.028 NG/ML Total Protein 7.6 6.4-8.2 GM/DL Albumin 4.3 3.2-4.5 GM/DL TSH [place] Testing 3.60 0.35-4.94 UIU/ML Urine Color YELLOW Urine Clarity CLEAR Urine pH 5.5 5-9 Urine Specific [place] <=1.005 1.016-1.022 Urine Protein NEGATIVE NEGATIVE Urine Glucose (UA) NEGATIVE NEGATIVE Urine Ketones NEGATIVE NEGATIVE Urine Nitrite NEGATIVE NEGATIVE Urine Bilirubin NEGATIVE NEGATIVE Urine Urobilinogen 0.2 < = 1.0 MG/DL Urine Leukocyte Esterase TRACE H NEGATIVE Urine RBC (Auto) NEGATIVE NEGATIVE Urine RBC NONE /HPF Urine WBC 2-5 /HPF Urine Squamous Epithelial Cells 2-5 /HPF Urine Crystals NONE /LPF Urine Bacteria TRACE /HPF Urine Casts NONE /LPF Urine Mucus NEGATIVE /LPF Urine Culture Indicated NO My Orders Orders - VERONICA MEEHAN MD Cbc With Automated Diff (09/03/22 21:08) Protime With Inr (09/03/22:) Partial Thromboplastin Time (09/03/22:08) Comprehensive Metabolic Panel (09/03/22 21:08) Fibrin Degradation Products (09/03/22 21:08) Troponin I Shanna (09/03/22 21:08) Ua Culture If Indicated (09/03/22:08) Chest 1 View, Ap/Pa Only (09/03/22 21:08) Ekg Tracing (09/03/22 21:08) Nothing By Mouth (09/04/22 Breakfast) Accucheck Stat ONCE (09/03/22 21:08) Ed Iv/Invasive Line Start (09/03/22 21:08) Ed Iv/Invasive Line Start (09/03/22 21:08) Vital Signs Stroke Patient Q15M (09/03/22 21:08) Ct Head Wo-R/O Stroke (09/03/22 21:08) O2 (09/03/22 21:08) Intake & Output 06,14,22 (09/03/22 21:08) Monitor-Rhythm Ecg Trace Only (09/03/22 21:08) Dysphagia Screening Tool Q10MX1 (09/03/22 21:08) Lipid Panel (09/04/22 06:00) Ct Cervical Spine Wo (09/03/22 21:08) Magnesium (09/03/22 21:25) Thyroid Analyzer (09/03/22 21:25) Vital Signs/I&O 09/03/22 20:48 Temp 35.7 Pulse 67 Resp 20 B/P (MAP) 181/57 (98) Pulse Ox 97 O2 Delivery Room Air Blood Pressure Mean: 98 Progress Progress Note : Time: 21:23 Progress Note Patient had a sensation of numbness in her right upper extremity that has now resolved. She complained of no motor deficits and has no measurable neurologic deficits at present. Stroke activation was not paged but we are proceeding with evaluation due to her risk factors. In addition to stroke evaluation we are including a CT of the cervical spine due to paresthesias in the right arm and hand. Vital signs are stable and patient is alert and oriented. Initial ECG Impression Date: Sep 03, 2022 Initial ECG Impression Time: 21:18 Initial ECG Rate: 54 Initial ECG Rhythm: A Fib/Flutter Initial ECG Impression: Atrial Fibrillation Comment Febrile nation with borderline bradycardia. No ST elevation or depression. No abnormal intervals or axis deviation. Departure Impression Primary Impression: Right upper extremity numbness Additional Impression: High blood pressure Qualified Codes: I10 - Essential (primary) hypertension Disposition: 01 HOME, SELF-CARE Condition: Improved Departure-Patient Inst. Decision time for Depature: 23:41 Referrals: ISAIAS ELMORE MD (PCP/Family) Primary Care Physician Patient Instructions: High Blood Pressure ED, Paresthesia (DC) Add. Discharge Instructions: Follow-up with your primary care provider soon as possible. Please call in the morning for an appointment time. Until then, continue with your usual medications as previously directed. Return to the ER if you have worsening symptoms. All discharge instructions reviewed with patient and/or family. Voiced understanding. Copy Copies To 1: ISAIAS ELMORE MD Copies To 2: BING PEREZ MD FACP [facility] VERONICA MEEHAN MD Sep 03, 2022 21:18
[2022-09-03 21:28] LABS: ALANINE AMINOTRANSFERASE 18 U/L (0-55); ALBUMIN 4.3 GM/DL (3.2-4.5); ALKALINE PHOSPHATASE 65 U/L (40-136); BILIRUBIN,TOTAL 0.6 MG/DL (0.1-1.0); BUN/CREATININE RATIO 16; CALCIUM 9.5 MG/DL (8.5-10.1); CARBON DIOXIDE 20 MMOL/L (21-32); CHLORIDE 103 MMOL/L (98-107); CREATININE SERUM 1.47 MG/DL (0.60-1.30); GFR ESTIMATED 35; GLUCOSE 109 MG/DL (70-105); POTASSIUM 4.3 MMOL/L (3.6-5.0); SODIUM 137 MMOL/L (135-145); TOTAL PROTEIN 7.6 GM/DL (6.4-8.2)
[2022-09-03 21:31] LABS: FIBRIN DEGRADATION PRODUCTS <= 0.27 UG/ML (0.00-0.49); INR 1.2 (0.8-1.4); PARTIAL THROMBOPLASTIN TIME 44 SEC (24-35); PROTHROMBIN TIME PATIENT 15.3 SEC (12.2-14.7)
[2022-09-03 21:51] LABS: MAGNESIUM 2.4 MG/DL (1.6-2.4)
--- NOTE | 2022-09-03 21:57 | Diagnostic Imaging Report ---
PROCEDURE: CT head w/o r/o stroke. TECHNIQUE: Multiple contiguous axial images were obtained through the brain without the use of intravenous contrast. Auto Exposure Controls were utilized during the CT exam to meet ALARA standards for radiation dose reduction. INDICATION: Numbness in the bilateral feet. COMPARISON: None. FINDINGS: The ventricles and cortical sulci are diffusely prominent, likely from generalized parenchymal volume loss. There is no midline shift or mass effect. There are areas of hypoattenuation and white matter which are likely from chronic microvascular disease. No acute intracranial hemorrhage is seen. There is no CT evidence of acute territorial ischemia. 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 The calvarium appears intact. Visualized paranasal sinuses are clear. IMPRESSION: 1. No acute intracranial hemorrhage or CT evidence of acute territorial ischemia. 2. 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 Findings discussed with VERONICA MEEHAN MD by Dr. Chadwick, on 09/03/2022 9:47 PM. Dictated by: Dictated on workstation # [id number]
--- NOTE | 2022-09-03 21:58 | Diagnostic Imaging Report ---
PROCEDURE: CT cervical spine without contrast. TECHNIQUE: Multiple contiguous axial images were obtained through the cervical spine without the use of intravenous contrast. Sagittal and coronal reformations were then performed. Auto Exposure Controls were utilized during the CT exam to meet ALARA standards for radiation dose reduction. INDICATION: Numbness in the bilateral feet. COMPARISON: None. FINDINGS: There is grade 1 anterolisthesis at C4-C5 and C5-C6. There are moderate degenerative changes at C6-C7 with mild degenerative changes elsewhere in the cervical spine. There is marked facet arthropathy, right greater than left. No acute fracture is seen. Vertebral body heights are preserved. No bony fragment or hyperdense fluid collection is seen in the spinal canal. No acute abnormality is seen in the soft tissues of the neck. There is some heterogeneity of the thyroid. IMPRESSION: Degenerative changes in the cervical spine with no acute osseous abnormality seen. Dictated by: Dictated on workstation # [id number]
[2022-09-03 22:01] LABS: BILIRUBIN,URINE NEGATIVE (NEGATIVE); CLARITY,URINE CLEAR; COLOR,URINE YELLOW; GLUCOSE, URINE (UA) NEGATIVE (NEGATIVE); KETONES,URINE NEGATIVE (NEGATIVE); LEUKOCYTE ESTERASE ,URINE TRACE (NEGATIVE); NITRITE,URINE NEGATIVE (NEGATIVE); PH,URINE 5.5 (5-9); PROTEIN,URINE NEGATIVE (NEGATIVE)
--- NOTE | 2022-09-03 22:01 | Diagnostic Imaging Report ---
HISTORY: Hypertension, stroke, right arm numbness. TECHNIQUE: Frontal view of the chest. COMPARISON: 08/27/2017. FINDINGS: Lung volumes are large. There is mild cardiomegaly. No consolidation is seen. There is no pleural effusion or pneumothorax. IMPRESSION: Large lung volumes and mild cardiomegaly but no acute pulmonary abnormality is seen. Dictated by: Dictated on workstation # [id number]
[2022-09-03 22:09] LABS: BACTERIA,URINE TRACE /HPF
[2022-09-03 22:12] LABS: TSH (THYROID ANALYZER) 3.6 UIU/ML (0.35-4.94)
[2022-09-03 23:52] VITALS: BP 154/63
== END 2022-09-03 23:48 | disposition home or self-care (01) ==
LOC: EDUNIT# 20:46 → ER 20:47
DX: I10 Essential (primary) hypertension (principal); R20.0 Anesthesia of skin; I48.91 Unspecified atrial fibrillation; G47.30 Sleep apnea, unspecified; Z99.89 Dependence on other enabling machines and devices; Z79.01 Long term (current) use of anticoagulants
CPT/HCPCS: 36415; 70450; 71045; 72125; 80053; 81000; 83735; 84443; 84484; 85025; 85379; 85610; 85730; 93005

== ENCOUNTER → 2022-09-26 | Outpatient (CLI) | payer MEDICARE ==
--- NOTE | 2022-09-26 17:29 | Diagnostic Imaging Report ---
PROCEDURE: US carotid duplex, bilateral. TECHNIQUE: Multiple real-time grayscale images were obtained over the carotid arteries in various projections, bilaterally. Additional spectral analysis and color Doppler duplex images were also obtained. INDICATION: Limited exam. History of CVA. Patient has limited visibility and had difficulty tolerating the exam. Color Doppler imaging shows moderate atherosclerotic plaquing. There is increased velocity within the right internal carotid artery with carotid ratio of 2.0. Normal velocities and ratios on the left. Both vertebral arteries are antegrade and symmetrical. 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 Normal carotid and vertebral arteries. Waveforms and peak velocities appear normal. Carotid ratios are normal. Parameters based on the consensus panel Melendez-Scale and Doppler ultrasound criteria published September 2003, Radiology, Volume 229. DOPPLER (peak systolic velocity M/S Right Left CCA .77 .76 ICA Proximal .53 .67 ICA Mid .50 .85 ICA Distal 1.5 .72 RATIO 2.0 1.1 ECA .48 .61 VERT .60 .72 Dictated by: Dictated on workstation # [id number]
== END ==
LOC: RAD 09:11
PROVIDERS: ATTEND Internal Medicine
DX: Z86.73 Personal history of transient ischemic attack (TIA), and cerebral infarction without residual deficits (principal)
CPT/HCPCS: 93880

== ENCOUNTER → 2022-11-29 | Outpatient (CLI) | payer MEDICARE ==
--- NOTE | 2022-11-29 20:39 | Diagnostic Imaging Report ---
INDICATION: Routine screening. COMPARISON: Prior mammograms from 06/17/2019 and 06/14/2018. EXAMINATION: 2D and 3D bilateral screening mammography was performed with CAD. The current study was also evaluated with a Computer Aided Detection (CAD) system. FINDINGS: Both breasts are heterogeneously dense, limiting the sensitivity of mammography. There are scattered benign calcifications in both breasts. No mass or malignant-appearing microcalcifications are seen. Axillae are unremarkable. IMPRESSION: No mammographic features suspicious for malignancy are identified. ACR BI-RADS Category 2: Benign findings. Result letter will be mailed to the patient. Note: At least 10% of breast cancer is not imaged by mammography. Dictated by: Dictated on workstation # [id number]
== END ==
LOC: RAD 10:40
PROVIDERS: ATTEND Internal Medicine
DX: Z12.31 Encounter for screening mammogram for malignant neoplasm of breast (principal)
CPT/HCPCS: 77063; 77067

== ENCOUNTER 2022-12-17 13:37 | Emergency (ER) | payer MEDICARE ==
[~2022-12-17] VITALS: Ht 152 cm; Wt 71.0 kg
[~2022-12-17 13:37] MED LIST changes: -POTA10CA43 PO; +POTA10CA44 PO
[2022-12-17] MEDS ORDERED: TETANUS,DIPTH,PERTUSS P/F (BOOSTRIX) 0.5 ML VIAL IM ONE (14:15)
--- NOTE | 2022-12-17 14:22 | ED Fall/Injury ---
General Chief Complaint: Trauma-Non Activation Stated Complaint: CUT BACK OF HEAD Nursing Triage Note: PT AMB TO RM 7 PT STATES SHE TRIPPED AND FELL GOING DOWN 2 STEPS. DENIES LOC. HAS ABRASIONS (ROAD RASH TYPE WOUND) TO BACK OF HEAD. Source: patient Exam Limitations: no limitations (SHAMIKA WARNER APRN) History of Present Illness Date Seen by Provider: Dec 17, 2022 Time Seen by Provider: 13:52 Initial Comments 81-year-old female presents to the ER after a fall. States she was walking down the stairs outside and tripped and fell down 2 steps, states she fell backwards and sideways and hit the left posterior aspect of her head on concrete. Denies loss of consciousness, denies amnesia of the event, denies dizziness before or after fall. She does take aspirin and Eliquis. Denies fever/chills, CP, SOA, AP, N/V, dizziness. Occurred: just prior to arrival Injuries/Pain Location: head Context: tripped Loss of Consciousness: no loss of consciousness Associated Symptoms (Fall): No Abdominal Pain, No Chest Pain, No Confusion, No Dizziness; Headache; No Lightheadedness, No Nausea/Vomiting, No Shortness of Air, No Slurred Speech, No Trouble Walking, No Vision Changes (SHAMIKA WARNER APRN) Allergies and Home Medications Allergies Coded Allergies: No Known Drug Allergies (Unverified , 05/05/22) Patient Home Medication List Home Medication List Reviewed: Yes (SHAMIKA WARNER APRN) Acetaminophen (Acetaminophen Extra Strength) 500 Mg Tablet, 500-1,000 MG PO Q4H PRN for PAIN-MILD, (Reported) Entered as Reported by: WILFREDO CLEMENTS on 08/27/17 1436 Amitriptyline HCl (Amitriptyline HCl) 10 Mg Tablet, 10 MG PO BID, (Reported) Entered as Reported by: WILFREDO CLEMENTS on 08/27/17 1432 Amlodipine Besylate (Amlodipine Besylate) 10 Mg Tablet, 5 MG PO DAILY, (Reported) Entered as Reported by: JOSTIN BROOKE on 08/30/18 1342 Apixaban (Eliquis) 5 Mg Tablet, 5 MG PO BID, (Reported) Entered as Reported by: JOSTIN BROOKE on 08/30/18 1342 Aspirin (Aspir 81) 81 Mg Tablet.dr, 81 MG PO DAILY, (Reported) Entered as Reported by: JOSTIN BROOKE on 08/30/18 1342 Calcium Carbonate/Vitamin D3 (Calcium 500 + D Tablet) 1 Each Tablet, 1 TAB PO BID, (Reported) Entered as Reported by: WILFREDO CLEMENTS on 08/27/17 1438 Fexofenadine HCl (Fexofenadine HCl) 180 Mg Tablet, 180 MG PO DAILY PRN for ALLERGIES, (Reported) Entered as Reported by: WILFREDO CLEMENTS on 08/27/17 1445 Glucosa Solitario 2Kcl/Chondroitin Solitario (Glucosamine & Chondroitin Cap) 1 Each Capsule, 1 CAP PO BID, (Reported) Entered as Reported by: WILFREDO CLEMENTS on 08/27/17 1438 Losartan Potassium (Losartan Potassium) 50 Mg Tablet, 50 MG PO DAILY, (Reported) Entered as Reported by: GIA EARLY on 05/05/22 1302 Metoprolol Succinate (Metoprolol Succinate) 50 Mg Tab.er.24h, 25 MG PO DAILY, (Reported) Entered as Reported by: JOSTIN BROOKE on 08/30/18 1226 Last Action: Edited Multivit-Min/FA/Lycopene/Lut (Centrum Silver Tablet) 1 Each Tablet, 1 TAB PO DAILY, (Reported) Entered as Reported by: WILFREDO CLEMENTS on 08/27/17 1439 [place]-3S/Dha/Epa/Fish Oil/D3 (Fish Xqu-Jxggu-9-Vit D Softgel) 300 Mg-60 Mg-1,200 Mg-1,000 Unit Capsule, 1 EACH PO BID, (Reported) Entered as Reported by: LESLIE JAUREGUI on 12/17/22 1605 Last Action: New Order Pantoprazole Sodium (Pantoprazole Sodium) 40 Mg Tablet.dr, 40 MG PO DAILY, (Reported) Entered as Reported by: WILFREDO CLEMENTS on 08/27/17 1432 Potassium Chloride (Potassium Chloride) 10 Meq Capsule.er, 10 MEQ PO DAILY, (Reported) Entered as Reported by: JOSTIN BROOKE on 08/30/18 1226 Simvastatin (Simvastatin) 10 Mg Tablet, 10 MG PO HS, (Reported) Entered as Reported by: WILFREDO CLEMENTS on 08/27/17 1432 Triamterene/Hydrochlorothiazid (Triamterene-Hctz 75-50 mg Tab) 1 Each Tablet, 0.5 TAB PO DAILY, (Reported) Entered as Reported by: JOSTIN BROOKE on 08/30/18 1342 Discontinued Medications Hydrocodone/Acetaminophen (Hydrocodone-Acetamin 7.5-325) 7.5 Mg-325 Mg Tablet, 1 EACH PO Q4H PRN for PAIN-BREAKTHROUGH Discontinued Reason: No Longer Taking Prescribed by: NERI MALDONADO on 05/25/22 1058 Last Action: Discontinued [place] 3 Polyunsat Fatty Acids (Fish Oil 1,000 mg Capsule) 1,000 Mg Cap, 1,000 MG PO BID, (Reported) Discontinued Reason: Prescription changed Entered as Reported by: WILFREDO CLEMENTS on 08/27/17 1439 Review of Systems Review of Systems Constitutional: see HPI (SHAMIKA WARNER APRN) Past Rnffyrw-Tthpyu-Myxzer Hx Patient Social History Tobacco Use?: No Substance use?: No Alcohol Use?: No Pt feels they are or have been: No (SHAMIKA WARNER APRN) Immunizations Up To Date First/Initial COVID19 Vaccinat: 2020 Second COVID19 Vaccination Alexis: 2020 Third COVID19 Vaccination Date: 2020 (SHAMIKA WARNER APRN) Seasonal Allergies Seasonal Allergies: No (SHAMIKA WARNER APRN) Past Medical History Surgery/Hospitalization HX: A-FIB, HTN, MINI STROKE PAST, GB Surgeries: Yes (cataracts) Respiratory: Yes (SOA) Sleep Apnea Currently Using CPAP: Yes Currently Using BIPAP: No Cardiac: Yes Atrial Fibrillation, High Cholesterol, Hypertension Neurological: Yes (NO RESIDUAL-SPEECH TEMPORARILY ??) Neuropathy, Stroke Reproductive Disorders: No Genitourinary: Yes (EVONNE) Gastrointestinal: Yes Gastroesophageal Reflux Musculoskeletal: Yes Arthritis Endocrine: No HEENT: Yes Cataract Cancer: No Psychosocial: Yes Anxiety Integumentary: Yes Psoriasis Blood Disorders: Yes (low anemic AT TIMES) (SHAMIKA WARNER APRN) Physical Exam Vital Signs Vital Signs - First Documented 12/17/22 13:44 Pulse 60 Resp 18 B/P (MAP) 161/67 (98) Pulse Ox 98 (LUZ HORNE MD) Vital Signs Capillary Refill : Less Than 3 Seconds (SHAMIKA WARNER APRN) Height, Weight, BMI Height: 5'0.00" Weight: 158lbs. 0.0oz. 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, alert, normal mood/affect, oriented x 3 Skin: normal color, warm/dry, other (abrasion over hematoma to L posterior parietal region of head) (SHAMIKA WARNER APRN) Progress/Results/Core Measures Results/Orders Medications Given in ED Current Medications Medications Dose Ordered Sig/Sean Route Start Time Stop Time Status Last Admin Dose Admin Diphtheria/ Tetanus/Acell Pertussis 0.5 ml ONCE ONCE IM 12/17/22 14:15 12/17/22 14:16 DC 12/17/22 14:38 0.5 ML (LUZ HORNE MD) Vital Signs/I&O 12/17/22 12/17/22 13:44 15:07 Pulse 60 60 Resp 18 18 B/P (MAP) 161/67 (98) 161/67 (98) Pulse Ox 98 98 (LUZ HORNE MD) Blood Pressure Mean: 98 Progress Progress Note #1: Time: 14:00 Progress Note Patient seen and evaluated, sitting on bed, no acute distress. GCS 15. No neurological deficits, no unilateral weakness. PERRL,EOMI. Wound cleaned by nurse, abrasion over hematoma noted. No need for moon. Differential diagnosis includes but is not limited to, subdural hematoma, traumatic SAH, epidural hematoma, cerebral contusion, concussion. Will obtain CT head and neck due to age and history of anticoagulant use. Will update tetanus. Progress Note #2: Time: 14:30 Progress Note Patient reevaluated, resting in bed, GCS 14, due to eyes opening to verbal. Patient keeps closing her eyes in between questions. Neuro exam with thin normal limits, no unilateral weakness or abnormalities. Complaining of some dizziness and nausea at this time. Thinks it was due to laying down on the CT table. Progress Note #3: Time: 14:55 Progress Note Neurosurgery at [place] consulted for transfer. Dr. Andrew, neurosurgeon, accepted patient. Patient accepted by Dr. Camarena, ED physician for transfer. Dr. Horne and this provider to speak with patient. Patient alert now, GCS 15. Patient states she is feeling better, nausea is gone. Patient agreeable to transfer, no questions at this time. Ambulance transportation will not be available for another 2 to 3 hours. 1520 nurse contacting [facility] to see if they have ability to transport patient. 1542 transport will now arrive in 35 to 40 minutes. Will give Zofran to prevent nausea/vomiting during transport. (SHAMIKA WARNER APRN) Progress Note : Time: 15:36 Progress Note Patient seen and evaluated by me, 81-year-old had a mechanical trip and fall today walking over some gravel. She is chronically anticoagulated. Slipped and fell hit the left posterior part of her head on the gravel. No loss of consciousness. Presents for evaluation. Patient is alert, oriented no acute distress, GCS is 15 at the time of my evaluation. It was reported to me that the patient was quite somnolent after CT. She did mention that she became quite dizzy while she was in the CT scanner like she had vertigo. No complaints of extremity injury. No antecedent chest pain, shortness of breath, palpitations, headache. Patient noted to have intraventricular hemorrhage left anterior horn this is reviewed by me. Possible small subarachnoid as well as tiny subdural. I did also review the radiologist interpretation of the CT. I discussed the case with Dr. Andrew on for neurosurgery at [facility]. Patient has no focal neurologic deficits. PERRL, 1-2mm bilaterally. Her vital signs are stable. She did suffer a small superficial laceration to the left posterior occipital scalp approximately 1 to 1-1/2 cm. No active bleeding. The wound does not appear deep enough to require stapling or suturing. I have informed the patient of the plan of care, need for transfer for ICU monitoring for 24 hours. She is comfortable with this. All questions are sought and answered (LUZ HORNE Diagnostic Imaging Diagonstic Imaging: CT Plain Films/CT/US/NM/MRI: head Comments [facility], [place] NAME: ZAIDA ROSS [facility] REC#: [id number] PT STATUS: REG ER : 1940 PHYSICIAN: SHAMIKA WARNER APRN ADMIT DATE: 12/17/22/ER Signed Date of Exam:12/17/22 CT HEAD/CERVICAL SPINE WO EXAMINATION: CT head and CT cervical spine without contrast. TECHNIQUE: Multiple contiguous axial images were obtained through the brain and cervical spine without the use of intravenous contrast. Sagittal and coronal reformations through the cervical spine were then performed. All CT scans use one or more of the following dose optimizing techniques: automated exposure control, MA and/or KvP adjustment based on patient size and exam type or iterative reconstruction. HISTORY: Head and neck pain after injury COMPARISON: 09/03/2022 FINDINGS: HEAD: Mild diffuse cerebral volume loss with proportional enlargement of the ventricles and sulci. There is a minimal amount of hemorrhage seen within the anterior horn and lateral horn of the left lateral ventricle. No abnormal ventriculomegaly. Mild hypodensities throughout the supratentorial white matter of both cerebral hemispheres. There may be trace subarachnoid hemorrhage seen along the bilateral frontal lobes anteriorly. There is a small focus of hyperdensity along the right superior falx. Calcification of the intracranial ICAs. No hyperdense vessel. There is a large left posterior parietal scalp hematoma without underlying fracture of the calvarium. The mastoid air cells are clear. The visualized paranasal sinuses are clear. Surgical changes from cataract repair. C-SPINE: Vertebral body height and alignment are preserved. No acute fracture, dislocation, or destructive osseous process. There is multilevel facet hypertrophy without perched facets. There is multilevel cervical spondylosis. The paraspinous soft tissues are normal. The visualized thyroid gland is normal. The visualized lung apices are normal. IMPRESSION: 1. Intraventricular hemorrhage within the left lateral ventricle. 2. Possible trace subarachnoid hemorrhage versus artifact along the bilateral frontal lobes anteriorly. 3. Small focus of hyperdensity along the right anterior falx which could represent additional area of subarachnoid hemorrhage versus a tiny subdural hematoma. 4. Degenerative changes of the cervical spine without acute osseous abnormality. CRITICAL FINDING. Results communicated to Shamika Warner APRN, by Dr. Peyman Ramirez at 2:27 PM on 12/15/2022. Dictated by: Dictated on workstation # [id number] Dict: 12/17/22 1418 Trans: 12/17/22 1434 [facility] [id number] Interpreted by: RICHARD RAMIREZ DO Electronically signed by: RICHARD RAMIREZ DO 12/17/22 1434 (SHAMIKA WARNER APRN) Departure Communication (Admissions) Time/Spoke to Consulting Phy: 14:41 Dr. Andrew, Neurosurgeon at [place]. Dr. Hardin, ED physician at [place] (SHAMIKA WARNER APRN) Impression Primary Impression: Intraventricular hemorrhage Disposition: XFER SHT-[facility] Condition: Stable Transfer Transfer Reason: Exceeds level of care Time Spoke to Accepting Phy: 14:41 Transfer Progress Notes Accepted by Dr. Andrew, neurosurgeon at [place]. Accepted by Dr. Hardin, ED physician at [facility]. Transfer Time: 15:25 Transfer Facility: [facility] Method of Transfer: EMS (SHAMIKA WARNER APRN) Departure-Patient Inst. Referrals: ISAIAS ELMORE MD (PCP/Family) Primary Care Physician SHAMIKA WARNER APRN Dec 17, 2022 14:22 LUZ HORNE MD Dec 17, 2022 15:40
--- NOTE | 2022-12-17 14:34 | Diagnostic Imaging Report ---
EXAMINATION: CT head and CT cervical spine without contrast. TECHNIQUE: Multiple contiguous axial images were obtained through the brain and cervical spine without the use of intravenous contrast. Sagittal and coronal reformations through the cervical spine were then performed. All CT scans use one or more of the following dose optimizing techniques: automated exposure control, MA and/or KvP adjustment based on patient size and exam type or iterative reconstruction. HISTORY: Head and neck pain after injury COMPARISON: 09/03/2022 FINDINGS: HEAD: Mild diffuse cerebral volume loss with proportional enlargement of the ventricles and sulci. There is a minimal amount of hemorrhage seen within the anterior horn and lateral horn of the left lateral ventricle. No abnormal ventriculomegaly. Mild hypodensities throughout the supratentorial white matter of both cerebral hemispheres. There may be trace subarachnoid hemorrhage seen along the bilateral frontal lobes anteriorly. There is a small focus of hyperdensity along the right superior falx. Calcification of the intracranial ICAs. No hyperdense vessel. There is a large left posterior parietal scalp hematoma without underlying fracture of the calvarium. The mastoid air cells are clear. The visualized paranasal sinuses are clear. Surgical changes from cataract repair. C-SPINE: Vertebral body height and alignment are preserved. No acute fracture, dislocation, or destructive osseous process. There is multilevel facet hypertrophy without perched facets. There is multilevel cervical spondylosis. The paraspinous soft tissues are normal. The visualized thyroid gland is normal. The visualized lung apices are normal. IMPRESSION: 1. Intraventricular hemorrhage within the left lateral ventricle. 2. Possible trace subarachnoid hemorrhage versus artifact along the bilateral frontal lobes anteriorly. 3. Small focus of hyperdensity along the right anterior falx which could represent additional area of subarachnoid hemorrhage versus a tiny subdural hematoma. 4. Degenerative changes of the cervical spine without acute osseous abnormality. CRITICAL FINDING. Results communicated to Shamika Hightower APRN, by Dr. Peyman Albarran at 2:27 PM on 12/15/2022. Dictated by: Dictated on workstation # [id number]
[2022-12-17] MEDS ORDERED: ONDANSETRON 4 MG/2 ML (SDV) Z0FRAN IVP ONE (15:45)
[2022-12-17] MEDS ORDERED: OMEG-85 PO (16:05)
[2022-12-17 16:19] VITALS: BP 131/69
== END 2022-12-17 16:19 | disposition short-term general hospital (02) ==
LOC: EDUNIT# 13:37 → ER 13:40
DX: S06.6X0A Traumatic subarachnoid hemorrhage without loss of consciousness, initial encounter (principal); S06.5X0A Traumatic subdural hemorrhage without loss of consciousness, initial encounter; S01.01XA Laceration without foreign body of scalp, initial encounter; R40.2412 Glasgow coma scale score 13-15, at arrival to emergency department; Z23 Encounter for immunization; Z79.01 Long term (current) use of anticoagulants; Z79.82 Long term (current) use of aspirin; W10.9XXA Fall (on) (from) unspecified stairs and steps, initial encounter; W22.8XXA Striking against or struck by other objects, initial encounter; Y93.01 Activity, walking, marching and hiking
CPT/HCPCS: 70450; 72125; 90715

== ENCOUNTER 2022-12-23 23:04 | Emergency (ER) | payer MEDICARE ==
[~2022-12-23] VITALS: Ht 152.4 cm; Wt 72.0 kg
[~2022-12-23 23:04] MED LIST changes: +OMEG-85 PO
[2022-12-23 23:24] VITALS: BP 175/73
--- NOTE | 2022-12-23 23:43 | ED General ---
General Chief Complaint: General Problems/Pain Stated Complaint: ELEVATED BLOOD PRESSURE/LEFT LEG SWELLING Source of Information: Patient, Family Exam Limitations: No Limitations History of Present Illness Date Seen by Provider: Dec 23, 2022 Time Seen by Provider: 23:15 Initial Comments Patient is an 81-year-old female who presents to the emergency room with concern of elevated blood pressure and left foot swelling. She has a history of hypertension, recent intraventricular hemorrhage after a fall and head injury with resultant stay at [facility] for 4 days. Upon discharge 2 days ago her blood pressure medications were changed. She states that she believes her left foot is swollen and bruised from her fall last Sunday. She denies headache, vision change, speech or swallowing difficulty. No chest pain or shortness of breath. No abdominal pain, nausea or diarrhea. No problems with urination. No problems with coordination or balance. She states that she has taken her nightly medications and her blood pressure by the time I get into the room is 156 systolic. She is A. fib rate controlled in the low 80s. Awake alert, oriented with no acute distress. All other review of systems reviewed and negative except as stated. Timing/Duration: 1 Hour Severity: Mild Associated Systoms: Denies Symptoms Allergies and Home Medications Allergies Coded Allergies: No Known Drug Allergies (Unverified , 05/05/22) Patient Home Medication List Home Medication List Reviewed: Yes Acetaminophen (Acetaminophen Extra Strength) 500 Mg Tablet, 500-1,000 MG PO Q4H PRN for PAIN-MILD, (Reported) Entered as Reported by: WILFREDO CLEMENTS on 08/27/17 1436 Amitriptyline HCl (Amitriptyline HCl) 10 Mg Tablet, 10 MG PO BID, (Reported) Entered as Reported by: WILFREDO CLEMENTS on 08/27/17 1432 Amlodipine Besylate (Amlodipine Besylate) 10 Mg Tablet, 5 MG PO DAILY, (Reported) Entered as Reported by: JOSTIN BROOKE on 08/30/18 1342 Apixaban (Eliquis) 5 Mg Tablet, 5 MG PO BID, (Reported) Entered as Reported by: JOSTIN BROOKE on 08/30/18 1342 Aspirin (Aspir 81) 81 Mg Tablet.dr, 81 MG PO DAILY, (Reported) Entered as Reported by: JOSTIN BROOKE on 08/30/18 1342 Calcium Carbonate/Vitamin D3 (Calcium 500 + D Tablet) 1 Each Tablet, 1 TAB PO BID, (Reported) Entered as Reported by: WILFREDO CLEMENTS on 08/27/17 1438 Fexofenadine HCl (Fexofenadine HCl) 180 Mg Tablet, 180 MG PO DAILY PRN for ALLERGIES, (Reported) Entered as Reported by: WILFREDO CLEMENTS on 08/27/17 1445 Glucosa Solitario 2Kcl/Chondroitin Solitario (Glucosamine & Chondroitin Cap) 1 Each Capsule, 1 CAP PO BID, (Reported) Entered as Reported by: WILFREDO CLEMENTS on 08/27/17 1438 Losartan Potassium (Losartan Potassium) 50 Mg Tablet, 50 MG PO DAILY, (Reported) Entered as Reported by: GIA EARLY on 05/05/22 1302 Metoprolol Succinate (Metoprolol Succinate) 50 Mg Tab.er.24h, 25 MG PO DAILY, (Reported) Entered as Reported by: JOSTIN BROOKE on 08/30/18 1226 Multivit-Min/FA/Lycopene/Lut (Centrum Silver Tablet) 1 Each Tablet, 1 TAB PO DAILY, (Reported) Entered as Reported by: WILFREDO CLEMENTS on 08/27/17 1439 [place]-3S/Dha/Epa/Fish Oil/D3 (Fish Eng-Zphlf-8-Vit D Softgel) 300 Mg-60 Mg-1,200 Mg-1,000 Unit Capsule, 1 EACH PO BID, (Reported) Entered as Reported by: LESLIE JAUREGUI on 12/17/22 1605 Pantoprazole Sodium (Pantoprazole Sodium) 40 Mg Tablet.dr, 40 MG PO DAILY, (Reported) Entered as Reported by: WILFREDO CLEMENTS on 08/27/17 1432 Potassium Chloride (Potassium Chloride) 10 Meq Capsule.er, 10 MEQ PO DAILY, (Reported) Entered as Reported by: JOSTIN BROOKE on 08/30/18 1226 Simvastatin (Simvastatin) 10 Mg Tablet, 10 MG PO HS, (Reported) Entered as Reported by: WILFREDO CLEMENTS on 08/27/17 1432 Triamterene/Hydrochlorothiazid (Triamterene-Hctz 75-50 mg Tab) 1 Each Tablet, 0.5 TAB PO DAILY, (Reported) Entered as Reported by: JOSTIN BROOKE on 08/30/18 1342 Discontinued Medications Hydrocodone/Acetaminophen (Hydrocodone-Acetamin 7.5-325) 7.5 Mg-325 Mg Tablet, 1 EACH PO Q4H PRN for PAIN-BREAKTHROUGH Discontinued Reason: No Longer Taking Prescribed by: NERI MALDONADO on 05/25/22 1058 [place] 3 Polyunsat Fatty Acids (Fish Oil 1,000 mg Capsule) 1,000 Mg Cap, 1,000 MG PO BID, (Reported) Discontinued Reason: Prescription changed Entered as Reported by: WILFREDO CLEMENTS on 08/27/17 1439 Review of Systems Review of Systems Constitutional: see HPI EENTM: no symptoms reported Respiratory: no symptoms reported Cardiovascular: no symptoms reported Gastrointestinal: no symptoms reported Genitourinary: no symptoms reported Musculoskeletal: other (Swelling left foot) Skin: other (Bruising left foot) Psychiatric/Neurological: No Symptoms Reported All Other Systems Reviewed Negative Unless Noted: Yes Past Omylsyy-Jmdehh-Fqodae Hx Immunizations Up To Date First/Initial COVID19 Vaccinat: 2020 Second COVID19 Vaccination Alexis: 2020 Third COVID19 Vaccination Date: 2020 Seasonal Allergies Seasonal Allergies: No Past Medical History Surgery/Hospitalization HX: A-FIB, HTN, MINI STROKE PAST, GB Surgeries: Yes (cataracts) Respiratory: Yes (SOA) Sleep Apnea Currently Using CPAP: Yes Currently Using BIPAP: No Cardiac: Yes Atrial Fibrillation, High Cholesterol, Hypertension Neurological: Yes (NO RESIDUAL-SPEECH TEMPORARILY ??) Neuropathy, Stroke Reproductive Disorders: No Genitourinary: Yes (EVONNE) Gastrointestinal: Yes Gastroesophageal Reflux Musculoskeletal: Yes Arthritis Endocrine: No HEENT: Yes Cataract Cancer: No Psychosocial: Yes Anxiety Integumentary: Yes Psoriasis Blood Disorders: Yes (low anemic AT TIMES) Physical Exam Vital Signs Vital Signs - First Documented 12/23/22 23:24 Temp 36.0 Pulse 96 Resp 16 B/P (MAP) 175/73 (107) Pulse Ox 95 O2 Delivery Room Air Capillary Refill : Height, Weight, BMI Height: 5'0.00" Weight: 158lbs. 0.0oz. [id number]; 30.00 BMI Method:Stated General Appearance: No Apparent Distress, WD/WN Eyes: Bilateral Eye Normal Inspection, Bilateral Eye PERRL, Bilateral Eye EOMI HEENT: PERRL/EOMI, TMs Normal Neck: Normal Inspection Respiratory: Lungs Clear, Normal Breath Sounds, No Accessory Muscle Use, No Respiratory Distress Cardiovascular: Irregularly Irregular Gastrointestinal: Non Tender, Soft Extremity: Normal Inspection, No Calf Tenderness; No Calf Tenderness; Swelling (Mild swelling over the dorsum of the left foot with ecchymosis over the dorsum and lateral aspect of the foot) Neurologic/Psychiatric: Alert, Oriented x3, No Motor/Sensory Deficits, Normal Mood/Affect, sheet folder II-XII Norm as Tested Skin: Normal Color, Warm/Dry, Other (Healing left posterior parietal scalp wound without erythema, fluctuance or drainage) Progress/Results/Core Measures Suspected Sepsis SIRS Temperature: Pulse: Respiratory Rate: Blood Pressure / Mean: Results/Orders Vital Signs/I&O 12/23/22 12/23/22 23:24 23:51 Temp 36.0 Pulse 96 68 Resp 16 16 B/P (MAP) 175/73 (107) 147/62 (90) Pulse Ox 95 98 O2 Delivery Room Air Room Air Capillary Refill : Progress Note : Time: 23:39 Progress Note Patient seen and evaluated by me, 81-year-old with a chief complaint of concern for high blood pressure and left foot swelling. Evaluation today includes physical exam, review of the medical record, Review of the patient's discharge packet from [facility]. Her blood pressure is coming down on its own here in the emergency department. Her exam is grossly normal. No focal neurologic deficits. She has no complaints related to signs or symptoms of endorgan damage. She has no clinical or objective findings to warrant blood work, EKG, imaging studies here. She is reassured by this. She has follow-up scheduled with her primary care physician in 2 weeks. All questions are sought and answered. Patient stable for discharge. 12/24/22 @0002 D/C blood pressure 146/57 Departure Impression Primary Impression: High blood pressure Qualified Codes: I10 - Essential (primary) hypertension Disposition: 01 HOME, SELF-CARE Condition: Stable Departure-Patient Inst. Decision time for Depature: 23:41 Referrals: ISAIAS ELMORE MD (PCP/Family) Primary Care Physician Patient Instructions: High Blood Pressure Emergencies Add. Discharge Instructions: Continue your daily medications as prescribed. Be sure and keep your follow-up appointment with Dr. Elmore in 2 weeks. If in the middle of the afternoon you are concerned about high blood pressure readings, and your upper BP number is over 180, you can take an extra Hydralazine. Make sure your doses are 8 hours apart. Return to the emergency department for any new, concerning or emergent complaints. Copy Copies To 1: ISAIAS ELMORE MD, KATHRYN M MD Dec 23, 2022 23:43
== END 2022-12-24 00:17 | disposition home or self-care (01) ==
LOC: EDUNIT# 23:04 → ER 23:07
DX: I10 Essential (primary) hypertension (principal); S90.32XA Contusion of left foot, initial encounter; G47.30 Sleep apnea, unspecified; Z99.89 Dependence on other enabling machines and devices; W19.XXXA Unspecified fall, initial encounter
CPT/HCPCS: 99281

== ENCOUNTER 2022-12-30 02:30 | Inpatient (IN) | payer MEDICARE ==
[~2022-12-30] VITALS: Ht 152.4 cm; Wt 77.7 kg
[2022-12-30] MEDS ORDERED: methylPREDNISolone 125 MG (Solu-MEDROL) VIAL IV STA (02:35)
[2022-12-30] MEDS ORDERED: RT-ALBUTEROL/IPRATROPIUM 3 ML (DUONEB) VIAL INH ONE (02:45)
--- NOTE | 2022-12-30 02:50 | ED Respiratory ---
General Chief Complaint: Respiratory Problems Stated Complaint: SOA Nursing Triage Note: PT TO RM 9 VIA WC W C/O SOA, DIZZINESS, AND BLE SWELLING. PT REPORTS SOA BEGAN 12/29/22 AFTERNOON, GOT BETTER, THEN WORSENED IN THE EVENING. PT A&OX4. Source: patient, old records History of Present Illness Date Seen by Provider: Dec 30, 2022 Time Seen by Provider: 02:32 Initial Comments PT ARRIVES VIA POV FROM HOME--PT LIVES ALONE, SON BROUGHT HER TO ER C/O SHORTNESS OF BREATH SINCE YESTERDAY 12/29/22 HAS ALSO HAD LEG SWELLING SINCE YESTERDAY HAS BEEN HAVING DIZZINESS WELL NO CHEST PAIN NO COUGH NO FEVER/SWEATS/CHILLS PT HAS HISTORY OF ATRIAL FIBRILLATION, HTN, TIA AND HAD BEEN ON ELIQUIS AND ASPIRIN SHE FELL AND HIT HER HEAD ON 12/17/22 AND HAD AN INTRACRANIAL HEMORRHAGE AND WAS TRANSFERRED TO [facility]. NO SURGERY WAS DONE HER ASPIRIN, ELIQUIS, LOSARTAN AND TRIAMTERENE/HCTZ WERE ALL DISCONTINUED. SHE BRINGS HER DISCHARGE PAPERS WITH HER FROM [facility]. SHE WAS SEEN HERE IN ER 12/23/22 FOR ELEVATED BLOOD PRESSURE AND FOOT SWELLING. NO TESTS WERE DONE AT THAT TIME, AND NO MEDICATIONS WERE CHANGED AT THAT VISIT. PT WEARS CPAP AT NIGHT, BUT OTHERWISE DOES NOT HAVE HOME O2. NO HISTORY OF COPD/ASTHMA/EMPHYSEMA OR FREQUENT BRONCHITIS/PNEUMONIA PT IS A NON-SMOKER, NON-DRINKER PCP: DR. ELMORE DENTAL INSURANCE BILLER: DR. EDWARD Allergies and Home Medications Allergies Coded Allergies: No Known Drug Allergies (Unverified , 05/05/22) Patient Home Medication List Home Medication List Reviewed: Yes Acetaminophen (Acetaminophen Extra Strength) 500 Mg Tablet, 500-1,000 MG PO Q4H PRN for PAIN-MILD, (Reported) Entered as Reported by: WILFREDO CLEMENTS on 08/27/17 1436 Amitriptyline HCl (Amitriptyline HCl) 10 Mg Tablet, 10 MG PO BID, (Reported) Entered as Reported by: WILFREDO CLEMENTS on 08/27/17 1432 Amlodipine Besylate (Amlodipine Besylate) 10 Mg Tablet, 5 MG PO DAILY, (Reported) Entered as Reported by: JOSTIN BROOKE on 08/30/18 1342 Apixaban (Eliquis) 5 Mg Tablet, 5 MG PO BID, (Reported) Entered as Reported by: JOSTIN BROOKE on 08/30/18 1342 Aspirin (Aspir 81) 81 Mg Tablet.dr, 81 MG PO DAILY, (Reported) Entered as Reported by: JOSTIN BROOKE on 08/30/18 1342 Calcium Carbonate/Vitamin D3 (Calcium 500 + D Tablet) 1 Each Tablet, 1 TAB PO BID, (Reported) Entered as Reported by: WILFREDO CLEMENTS on 08/27/17 1438 Fexofenadine HCl (Fexofenadine HCl) 180 Mg Tablet, 180 MG PO DAILY PRN for ALLERGIES, (Reported) Entered as Reported by: WILFREDO CLEMENTS on 08/27/17 1445 Glucosa Solitario 2Kcl/Chondroitin Solitario (Glucosamine & Chondroitin Cap) 1 Each Capsule, 1 CAP PO BID, (Reported) Entered as Reported by: WILFREDO CLEMENTS on 08/27/17 1438 Losartan Potassium (Losartan Potassium) 50 Mg Tablet, 50 MG PO DAILY, (Reported) Entered as Reported by: GIA EARLY on 05/05/22 1302 Metoprolol Succinate (Metoprolol Succinate) 50 Mg Tab.er.24h, 25 MG PO DAILY, (Reported) Entered as Reported by: JOSTIN BROOKE on 08/30/18 1226 Multivit-Min/FA/Lycopene/Lut (Centrum Silver Tablet) 1 Each Tablet, 1 TAB PO DAILY, (Reported) Entered as Reported by: WILFREDO CLEMENTS on 08/27/17 1439 [place]-3S/Dha/Epa/Fish Oil/D3 (Fish Wru-Laujj-5-Vit D Softgel) 300 Mg-60 Mg-1,200 Mg-1,000 Unit Capsule, 1 EACH PO BID, (Reported) Entered as Reported by: LESLIE JAUREGUI on 12/17/22 1605 Pantoprazole Sodium (Pantoprazole Sodium) 40 Mg Tablet.dr, 40 MG PO DAILY, (Reported) Entered as Reported by: WILFREDO CLEMENTS on 08/27/17 1432 Potassium Chloride (Potassium Chloride) 10 Meq Capsule.er, 10 MEQ PO DAILY, (Reported) Entered as Reported by: JOSTIN BROOKE on 08/30/18 1226 Simvastatin (Simvastatin) 10 Mg Tablet, 10 MG PO HS, (Reported) Entered as Reported by: WILFREDO CLEMENTS on 08/27/17 1432 Triamterene/Hydrochlorothiazid (Triamterene-Hctz 75-50 mg Tab) 1 Each Tablet, 0.5 TAB PO DAILY, (Reported) Entered as Reported by: JOSTIN BROOKE on 08/30/18 1342 Review of Systems Review of Systems Constitutional: no symptoms reported EENTM: no symptoms reported Respiratory: see HPI, short of breath Cardiovascular: No chest pain; edema; No palpitations, No syncope Gastrointestinal: no symptoms reported Genitourinary: no symptoms reported Musculoskeletal: see HPI (LEG SWELLING) Skin: no symptoms reported Psychiatric/Neurological: No Symptoms Reported Hematologic/Lymphatic: No Symptoms Reported Immunological/Allergic: no symptoms reported Past Rqymylp-Oqjimz-Jimjov Hx Patient Social History Tobacco Use?: No Use of E-Cig and/or Vaping dev: No Substance use?: No Alcohol Use?: No Immunizations Up To Date First/Initial COVID19 Vaccinat: 2020 Second COVID19 Vaccination Alexis: 2020 Third COVID19 Vaccination Date: 2020 COVID19 Vaccine Shell Mold Bonder: [id number] Seasonal Allergies Seasonal Allergies: No Past Medical History Surgery/Hospitalization HX: A-FIB, HTN, MINI STROKE PAST, GB Surgeries: Yes (CATARACTS) Eye Surgery, Gallbladder Respiratory: Yes (CPAP AT HS) Sleep Apnea Currently Using CPAP: Yes Currently Using BIPAP: No Cardiac: Yes Atrial Fibrillation, High Cholesterol, Hypertension Neurological: Yes (NO RESIDUAL-SPEECH TEMPORARILY AFFECTED; 12/17/22- INTRACRANIAL BLEED-NO THEO) Neuropathy, Stroke, TIA, Traumatic Brain Injury 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 FUNES -BILATERAL CATARACT SURGERY -EGD/COLONOSCOPY 09/06/[address] 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 SYMPTOMS OF EXPRESSIVE APHASIA, FACIAL DROOP AND DYSPHAGIA RESOLVED. Physical Exam Vital Signs - First Documented 12/30/22 02:32 Temp 35.9 Pulse 104 Resp 30 B/P (MAP) 178/79 (112) Pulse Ox 95 O2 Delivery Nasal Cannula O2 Flow Rate 5.00 Capillary Refill : Less Than 3 Seconds Height: 5'0.00" Weight: 158lbs. 0.0oz. 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, no motor/sensory deficits, alert, normal mood/affect, oriented x 3 Skin: normal color, warm/dry Focused Exam Lactate Level 12/30/22 02:43: Lactic Acid Level 1.73 Lactic Acid Level Laboratory Tests Test 12/30/22 02:43 Lactic Acid Level 1.73 MMOL/L (0.50-2.00) Progress/Results/Core Measures Suspected Sepsis SIRS Temperature: Pulse: 104 Respiratory Rate: 30 Laboratory Tests 12/30/22 02:43: White Blood Count 12.3H Blood Pressure 178 /79 Mean: 112 12/30/22 02:43: Lactic Acid Level 1.73 Laboratory Tests 12/30/22 02:43: Creatinine 0.99, INR Comment 0.9, Platelet Count 255, Total Bilirubin 1.0 Results/Orders Lab Results Laboratory Tests Test 12/30/22 02:40 12/30/22 02:43 12/30/22 02:50 Range/Units Influenza Type A (RT-PCR) Not Detected Not Detecte Influenza Type B (RT-PCR) Not Detected Not Detecte SARS-CoV-2 RNA (RT-PCR) Not Detected Not Detecte White Blood Count 12.3 H 4.3-11.0 10^3/uL Red Blood Count 3.15 L 3.80-5.11 10^6/uL Hemoglobin 9.1 L 11.5-16.0 g/dL Hematocrit 28 L 35-52 % Mean Corpuscular Volume 90 80-99 fL Mean Corpuscular Hemoglobin 29 25-34 pg Mean Corpuscular Hemoglobin Concent 32 32-36 g/dL Red Cell Distribution Width 16.7 H 10.0-14.5 % Platelet Count 255 130-400 10^3/uL Mean Platelet Volume 9.7 9.0-12.2 fL Immature Granulocyte % (Auto) 1 % Neutrophils (%) (Auto) 70 42-75 % Lymphocytes (%) (Auto) 16 12-44 % Monocytes (%) (Auto) 11 0-12 % Eosinophils (%) (Auto) 3 0-10 % Basophils (%) (Auto) 0 0-10 % Neutrophils # (Auto) 8.5 H 1.8-7.8 10^3/uL Lymphocytes # (Auto) 2.0 1.0-4.0 10^3/uL Monocytes # (Auto) 1.4 H 0.0-1.0 10^3/uL Eosinophils # (Auto) 0.3 0.0-0.3 10^3/uL Basophils # (Auto) 0.0 0.0-0.1 10^3/uL Immature Granulocyte # (Auto) 0.1 0.0-0.1 10^3/uL Erythrocyte Sedimentation Rate 33 H 0-30 MM/HR Prothrombin Time 12.8 12.2-14.7 SEC INR Comment 0.9 0.8-1.4 Activated Partial Thromboplast Time 36 H 24-35 SEC D-Dimer 1.63 H 0.00-0.49 UG/ML Sodium Level 136 135-145 MMOL/L Potassium Level 3.4 L 3.6-5.0 MMOL/L Chloride Level 103 98-107 MMOL/L Carbon Dioxide Level 20 L 21-32 MMOL/L Anion Gap 13 5-14 MMOL/L Blood Urea Nitrogen 13 7-18 MG/DL Creatinine 0.99 0.60-1.30 MG/DL Estimat Glomerular Filtration Rate 57 BUN/Creatinine Ratio 13 Glucose Level 169 H 70-105 MG/DL Lactic Acid Level 1.73 0.50-2.00 MMOL/L Calcium Level 9.4 8.5-10.1 MG/DL Corrected Calcium 9.3 8.5-10.1 MG/DL Magnesium Level 2.0 1.6-2.4 MG/DL Total Bilirubin 1.0 0.1-1.0 MG/DL Aspartate Amino Transf (AST/SGOT) 18 5-34 U/L Alanine Aminotransferase (ALT/SGPT) 16 0-55 U/L Alkaline Phosphatase 72 40-136 U/L Total Creatine Kinase 71 29-168 U/L Creatine Kinase MB 2.5 <6.6 NG/ML Myoglobin 54.7 10.0-92.0 NG/ML Troponin I < 0.028 <0.028 NG/ML C-Reactive Protein High Sensitivity 1.05 H 0.00-0.50 MG/DL B-Type Natriuretic Peptide 180.1 H <100.0 PG/ML Total Protein 7.4 6.4-8.2 GM/DL Albumin 4.1 3.2-4.5 GM/DL Blood Gas Puncture Site RRAD Blood Gas Patient Temperature 34 Arterial Blood pH 7.42 7.37-7.43 Arterial Blood Partial Pressure CO2 37 35-45 MMHG Arterial Blood Partial Pressure O2 77 L 79-93 MMHG Arterial Blood HCO3 24 23-27 MMOL/L Arterial Blood Total CO2 25.8 21.0-31.0 MMOL/L Arterial Blood Oxygen Saturation 98 94-100 % Arterial Blood Base Excess -0.1 -2.5-2.5 MMOL/L Dejuan Test YES-POS Blood Gas Ventilator Setting NO Blood Gas Inspired Oxygen 8L My Orders Orders - KELLY ZENG DO Ed Iv/Invasive Line Start (12/30/22 02:35) Ekg Tracing (12/30/22 02:35) O2 (12/30/22 02:35) Monitor-Rhythm Ecg Trace Only (12/30/22 02:35) Chest 1 View, Ap/Pa Only (12/30/22 02:35) Arterial Blood Gas (12/30/22 02:35) Bnp Teller (12/30/22 02:35) Cbc With Automated Diff (12/30/22 02:35) Comprehensive Metabolic Panel (12/30/22 02:35) Creatine Kinase (12/30/22 02:35) Creatine Kinase Mb (12/30/22 02:35) Hs C Reactive Protein (12/30/22 02:35) Lactic Acid Analyzer (12/30/22 02:35) Magnesium (12/30/22 02:35) Protime With Inr (12/30/22 02:35) Partial Thromboplastin Time (12/30/22 02:35) Erythrocyte Sedimentation Rate (12/30/22 02:35) Myoglobin Serum (12/30/22 02:35) Troponin I Shanna (12/30/22 02:35) Covid 19 Inhouse Test (12/30/22 02:35) Influenza A And B By Pcr (12/30/22 02:35) Isolation Central Supply Req (12/30/22 02:35) Albuterol/Ipra Inhalation Soln (Duoneb I (12/30/22 02:45) Dexamethasone Injection (Decadron Injec (12/30/22 02:45) Rt Request For Service (12/30/22 02:35) Methylprednisolone Sod Succ (Solu-Medrol (12/30/22 02:35) Svn Small Volume Nebulizer (12/30/22 02:35) Fibrin Degradation Products (12/30/22 03:17) Furosemide Injection (Lasix Injection) (12/30/22 03:45) Catheter(Urinary) Insert & Ass 03,15 (12/30/22 03:41) Lidocaine 2% (Urojet) (Xylocaine Urojet) (12/30/22 03:45) Medications Given in ED Current Medications Medications Dose Ordered Sig/Sean Route Start Time Stop Time Status Last Admin Dose Admin Albuterol/ Ipratropium 3 ml ONCE ONCE INH 12/30/22 02:45 12/30/22 02:46 DC 12/30/22 02:52 3 ML Dexamethasone Sodium Phosphate 20 mg ONCE ONCE IH 12/30/22 02:45 12/30/22 02:46 DC 12/30/22 02:52 20 MG Furosemide 40 mg ONCE ONCE IVP 12/30/22 03:45 12/30/22 03:46 DC 12/30/22 03:48 40 MG Vital Signs/I&O 12/30/22 12/30/22 12/30/22 02:32 02:53 03:16 Temp 35.9 Pulse 104 80 Resp 30 22 B/P (MAP) 178/79 (112) Pulse Ox 95 98 100 O2 Delivery Nasal Cannula Nasal Cannula O2 Flow Rate 5.00 8.00 40.00 Capillary Refill : Less Than 3 Seconds Blood Pressure Mean: 112 Progress Note : Progress Note PLACED IN ISOLATION ROOM PPE WORN COVID AND FLU TESTING DONE INITIAL O2 SAT 80% ON ROOM AIR PLACED ON O2 AT 4L/NC AND O2 SATS UP TO 96% BP IS CONSISTENTLY IN 170'S SYSTOLIC, HR IS < 100 GIVEN: -NEB TREATMENT -SOLU-MEDROL -LASIX -NITROPASTE FOR HTN AND CHF BIPAP INITIATED FOR HYPOXIA AND CHF SYMPTOMS SIGNIFICANTLY IMPROVED WITH THE ABOVE. NO DETERIORATION IN PT'S CONDITION DURING ER STAY. 1500 ML URINE OUTPUT. VITALS AT TIME OF ADMIT: BP 140/70 HR 85 RR 17 O2 SAT 99% ON BIPAP REVIEWED PRIOR RECORDS, INCLUDING RECENT ER VISITS, ADMITS, H&P'S, TESTS/PROCEDURES, CONSULTS AND DISCHARGE SUMMARIES DISCUSSED TEST RESULTS, NEED FOR ADMIT, PLAN OF CARE AND ANTICIPATED COURSE WITH PT AND SON, AND PT IS AGREEABLE TO ADMIT. COMPLEX MANAGEMENT DUE TO: -CHRONIC ATRIAL FIBRILLATION, WITH RECENT STOPPING OF ASPIRIN AND ELIQUIS DUE TO RECENT HEAD INJURY WITH INTRACRANIAL BLEED. SHE IS CURRENTLY RATE CONTROLLED WITH HR < 100. -CURRENT PROBLEM OF ACUTE RESPIRATORY FAILURE REQUIRING BIPAP, WITH CHF, AND RECENT STOPPING OF DIURETIC -CANNOT RULE OUT P.E. AT THIS TIME, OR TREAT EMPIRICALLY WITH ANTICOAGULATION DUE TO RECENT INTRACRANIAL BLEED. CANNOT DO CT CHEST ANGIOGRAM WITH IV DYE, DUE TO RECENT INTRACRANIAL BLEED AND RISK FOR SEIZURE IF SHE IS GIVEN IV CONTRAST. ECG Initial ECG Impression Date: Dec 30, 2022 Initial ECG Impression Time: 02:52 Initial ECG Rate: 86 Initial ECG Rhythm: A Fib/Flutter Initial ECG Impression: Atrial Fibrillation (PVC'S) Initial ECG Comparisson: Unchanged (UNCHANGED FROM 09/10/22) Comment INTERPRETED BY ME Diagnostic Imaging Comments CXR--CHF WITH BILATERAL PLEURAL EFFUSIONS, PENDING RADIOLOGIST REVIEW Reviewed: Reviewed by Me Departure Communication (Admissions) [id number]--CALLED DR. AGUILA, HOSPITALIST, MESSAGE LEFT ON CELL [id number]--SPOKE WITH DR. AGUILA, ACCEPTS PT FOR ADMIT. ORDERS NOTED. Impression Primary Impression: Acute respiratory failure Additional Impressions: CHF (congestive heart failure) Chronic atrial fibrillation HTN (hypertension) RECENT HEAD INJURY WITH INTRACRANIAL BLEED Anemia Elevated d-dimer MILD HYPERGLYCEMIA Disposition: ADMITTED INPATIENT Condition: Improved Admissions Decision to Admit Reason: Admit from ER (General) Decision to Admit/Date: Dec 30, 2022 Time/Decision to Admit Time: 04:00 Departure-Patient Inst. Referrals: ISAIAS ELMORE MD (PCP/Family) Primary Care Physician KELLY ZENG DO Dec 30, 2022 02:50
[2022-12-30 03:01] LABS: BASOPHILS % (AUTO) 0 % (0-10); EOSINOPHILS # (AUTO) 0.3 10^3/uL (0.0-0.3); EOSINOPHILS % (AUTO) 3 % (0-10); HEMATOCRIT 28 % (35-52); HEMOGLOBIN 9.1 g/dL (11.5-16.0); LYMPHOCYTES % (AUTO) 16 % (12-44); MEAN CORPUSCULAR HEMOGLOBIN 29 pg (25-34); MEAN CORPUSCULAR HGB CONC 32 g/dL (32-36); MEAN CORPUSCULAR VOLUME 90 fL (80-99); MEAN PLATELET VOLUME 9.7 fL (9.0-12.2); MONOCYTES # (AUTO) 1.4 10^3/uL (0.0-1.0); MONOCYTES % (AUTO) 11 % (0-12); NEUTROPHILS # (AUTO) 8.5 10^3/uL (1.8-7.8); NEUTROPHILS % (AUTO) 70 % (42-75); PLATELET COUNT 255 10^3/uL (130-400); WHITE BLOOD COUNT 12.3 10^3/uL (4.3-11.0)
[2022-12-30 03:02] LABS: ABG BASE EXCESS -0.1 MMOL/L (-2.5-2.5); ABG OXYGEN SATURATION 98 % (94-100); ABG PCO2 37 MMHG (35-45); ABG PH 7.42 (7.37-7.43); ABG PO2 77 MMHG (79-93); ABG TCO2 25.8 MMOL/L (21.0-31.0)
[2022-12-30 03:06] LABS: INR 0.9 (0.8-1.4); PROTHROMBIN TIME PATIENT 12.8 SEC (12.2-14.7)
[2022-12-30 03:08] LABS: ALBUMIN 4.1 GM/DL (3.2-4.5); CHLORIDE 103 MMOL/L (98-107); POTASSIUM 3.4 MMOL/L (3.6-5.0); SODIUM 136 MMOL/L (135-145)
[2022-12-30 03:08] LABS: ALLENS TEST YES-POS; INSPIRED O2 8L; PATIENT TEMP 34; VENTILATOR NO
[2022-12-30 03:10] LABS: CALCIUM 9.4 MG/DL (8.5-10.1)
[2022-12-30 03:11] LABS: GLUCOSE 169 MG/DL (70-105); TOTAL PROTEIN 7.4 GM/DL (6.4-8.2)
[2022-12-30 03:12] LABS: CARBON DIOXIDE 20 MMOL/L (21-32)
[2022-12-30 03:14] LABS: ALKALINE PHOSPHATASE 72 U/L (40-136)
[2022-12-30 03:15] LABS: CREATININE SERUM 0.99 MG/DL (0.60-1.30); GFR ESTIMATED 57
[2022-12-30 03:16] VITALS: BP_SYST 175
[2022-12-30 03:16] LABS: BUN/CREATININE RATIO 13
[2022-12-30 03:17] LABS: ALANINE AMINOTRANSFERASE 16 U/L (0-55)
[2022-12-30 03:18] LABS: CREATINE KINASE 71 U/L (29-168)
[2022-12-30 03:29] LABS: ERYTHROCYTE SEDIMENTATION RATE 33 MM/HR (0-30)
[2022-12-30 03:43] LABS: CREATINE KINASE MB 2.5 NG/ML (<6.6)
[2022-12-30] MEDS ORDERED: LIDOCAINE UROJET 2% GEL 10 ML PKG TOP ONE (03:45)
[2022-12-30] MEDS ORDERED: FUROSEMIDE 40 MG/4 ML INJ (LASIX) IVP ONE ×2 (03:45→11:15)
[2022-12-30] MEDS ORDERED: NITROGLYCERIN 2% OINT 1 GM UNIT DOSE PACKET TOP ONE (04:15)
[2022-12-30] MEDS ORDERED: CATHETER FLUSH 10 ML SYR IVP PRN ×2 (05:15→06:15)
--- NOTE | 2022-12-30 05:57 | Tele-ICU Progress Note ---
Progress Note 82F with recent traumatic ICH 12/17/22, afib, HTN, TIA, ANDREW on home CPAP, without known pulmonary or cardiac disease (other than afib) presented with SOB. Doing well after ICH admission, discharged home where she is independent and lives alone. SOB began yesterday afternoon. Seemed to improve and then worsen, prompting visit to ED. Has had leg swelling since yesterday, noted to have ED visit 12/23 for elevated BP and foot swelling. Also having some dizziness. Denies cough, CP, fever. Non-smoker. CXR (my read) with pulmonary vascular congestion, bilateral effusions vs bibasilar infiltrates. In ED, BiPap initiated, given lasix, nitropaste, solumedrol IV, decadron neb and duoneb. - SOB: PE vs pna vs new heart failure. Flu and COVID negative. -->PE: Given recent hospitalization without DVT prophylaxis and stopping home ASA and eliquis, she is at high risk for PE. Risk for seizure with contrast post ICH is noted and appreciated, however contrast induced encephalopathy is e xceedingly rare, and is seen both with and without ICH. It is a reversible condition. She also might be a candidate for anticoagulation, recent bleed was traumatic in nature, minimal subarachnoid blood and small amount of intraventricular blood. In addition, contrast is routinely used for angiography in vascular ICH's (ie anuerysmal SAH and AVM rupture). The potential benefits of proceeding with PE study far outweigh the potential risks. CTA ordered. -->CHF: Noted to have increased vascular congestion and bilateral effusions vs bibasilar infiltrates. BNP marginally elevated. Clinically looks most like CHF. In ED improved with lasix, nitropaste, bipap, neb and steroids. Echo in AM. Last echo 10/06/19 normal. -->pna: Will add on procalcitonin to ED labs. Eval parenchyma on CTA. Send cultures. Low threshhold to initiate empiric abx, but no clear indication at this time. Mild leukocytosis without bandemia, temp close to sepsis criteria (criteria <35.5, she is 35.9). - ICH: seems to have recovered without deficits. Will get CT of head for baseline - she was transferred after the initial CT so we don't know if there was expansion of bleeding. With ventricular blood also at risk for obstructive hydrocephalus, however with the distribution on our last CT that is unlikely, low liklihood that this is the cause of her dizziness. If any anticoagulation is needed, consult neurosurgery from [place]. Otherwise routine neuro monitoring. Patient assessed using real-time audiovisual communication system. CCT 32 min Focused Exam Lactate Level 12/30/22 02:43: Lactic Acid Level 1.73 12/30/22 05:51: Height, Weight, BMI Height: 5'0.00" Weight: 158lbs. 0.0oz. [id number]; 32.00 BMI Method:Stated Lactic Acid Level Laboratory Tests Test 12/30/22 02:43 12/30/22 05:51 Lactic Acid Level 1.73 MMOL/L (0.50-2.00) DAVON NIEVES MD Dec 30, 2022 05:57
[2022-12-30 05:59] LABS: BASOPHILS % (AUTO) 0 % (0-10); EOSINOPHILS % (AUTO) 0 % (0-10); HEMATOCRIT 30 % (35-52); HEMOGLOBIN 9.7 g/dL (11.5-16.0); LYMPHOCYTES # (AUTO) 0.4 10^3/uL (1.0-4.0); LYMPHOCYTES % (AUTO) 4 % (12-44); MEAN CORPUSCULAR HEMOGLOBIN 29 pg (25-34); MEAN CORPUSCULAR HGB CONC 33 g/dL (32-36); MEAN CORPUSCULAR VOLUME 88 fL (80-99); MEAN PLATELET VOLUME 9.7 fL (9.0-12.2); MONOCYTES # (AUTO) 0.2 10^3/uL (0.0-1.0); MONOCYTES % (AUTO) 2 % (0-12); NEUTROPHILS # (AUTO) 10.4 10^3/uL (1.8-7.8); NEUTROPHILS % (AUTO) 94 % (42-75); PLATELET COUNT 225 10^3/uL (130-400); WHITE BLOOD COUNT 11.1 10^3/uL (4.3-11.0)
[2022-12-30 06:25] LABS: BILIRUBIN,TOTAL 1.2 MG/DL (0.1-1.0); CALCIUM 9.4 MG/DL (8.5-10.1); MAGNESIUM 1.9 MG/DL (1.6-2.4); PHOSPHORUS 3.1 MG/DL (2.3-4.7); POTASSIUM 3.2 MMOL/L (3.6-5.0); TOTAL PROTEIN 7.4 GM/DL (6.4-8.2)
--- NOTE | 2022-12-30 06:32 | Diagnostic Imaging Report ---
PROCEDURE: CT head without contrast. TECHNIQUE: Multiple contiguous axial images were obtained through the brain without the use of intravenous contrast. Auto Exposure Controls were utilized during the CT exam to meet ALARA standards for radiation dose reduction. INDICATION: Intracranial hemorrhage. Correlation is made with prior CT from 12/17/2022. There is some trace hemorrhage identified in the occipital horns of the lateral ventricles bilaterally. Amount of intraventricular blood has decreased since prior exam. Parafalcine blood noted previously is no longer visualized. No subarachnoid hemorrhage is seen. No new area of hemorrhage is detected. There does appear to be some soft tissue swelling in the left posterior parietal scalp. There is no midline shift. No sulcal effacement is seen. Cisterns are patent. Visualized paranasal sinuses are clear. IMPRESSION: Left posterior parietal scalp swelling. There is minimal intraventricular hemorrhage present in the occipital horns bilaterally. No other areas of hemorrhage are detected. Dictated by: Dictated on workstation # [id number]
--- NOTE | 2022-12-30 06:34 | Diagnostic Imaging Report ---
INDICATION: Shortness of breath. CTA chest obtained with IV contrast bolus and axial slices and MIP reconstructions. Dose reduction protocol was used. The pulmonary parenchymal vessels are well-opacified with no CT evidence of pulmonary emboli. There is no evidence of aortic dissection or aneurysm. Great vessel origins are patent and without stenosis. There is cardiomegaly. There are a few borderline prominent nodes in the mediastinum of questionable significance. There are moderate to large bilateral pleural effusions. There is no pericardial fluid. Lung windows demonstrate patchy groundglass infiltrates throughout both lungs and bibasilar atelectatic changes. Visualized portions of the upper abdomen show no acute finding. IMPRESSION: No CT evidence of pulmonary emboli or acute aortic pathology. Large bilateral pleural effusions with bibasilar atelectatic changes and bilateral groundglass infiltrates. Underlying cardiomegaly. Dictated by: Dictated on workstation # [id number]
--- NOTE | 2022-12-30 06:55 | Diagnostic Imaging Report ---
EXAMINATION: Chest radiograph, portable AP view. DATE: 12/30/2022 3:39 AM. INDICATION: 82-year-old female, dyspnea. COMPARISON: September 03, 2022. FINDINGS: Heart size and mediastinal contours are unchanged. There is no identified pneumothorax. There is blunting of both the right and left lateral costophrenic angles. There are interstitial opacities bilaterally. There are degenerative changes of the spine. IMPRESSION: 1. Probable moderate sized bilateral pleural effusions. 2. Interstitial opacities. Most likely reflecting pulmonary interstitial edema. Atypical infection and pneumonitis are also differential considerations. Dictated by: Dictated on workstation # [id number]
[2022-12-30] MEDS ORDERED: NS IV 500 ML 500 ML IV PRN ×2 (07:00→21:15)
[2022-12-30] MEDS: CATHETER FLUSH 10 ML SYR IVP SCH ×5 (07:23→21:42)
[2022-12-30 07:45] LABS: BILIRUBIN,URINE NEGATIVE (NEGATIVE); CLARITY,URINE CLEAR; COLOR,URINE YELLOW; GLUCOSE, URINE (UA) NEGATIVE (NEGATIVE); KETONES,URINE NEGATIVE (NEGATIVE); LEUKOCYTE ESTERASE ,URINE NEGATIVE (NEGATIVE); NITRITE,URINE NEGATIVE (NEGATIVE); PH,URINE 6.5 (5-9); PROTEIN,URINE NEGATIVE (NEGATIVE)
[2022-12-30] MEDS ORDERED: KCL 20 MEQ TAB (K-DUR) PO ONE ×2 (07:45→09:45)
[2022-12-30 08:04] LABS: BACTERIA,URINE TRACE /HPF; RBC,URINE 25-50 /HPF; SQUAMOUS EPITHELIAL CELL,UR RARE /HPF; WBC,URINE 0-2 /HPF
[2022-12-30] MEDS: NITROGLYCERIN 2% OINT 1 GM UNIT DOSE PACKET TOP SCH ×3 (09:58→22:23)
[2022-12-30] MEDS ORDERED: DOCU100C37 PO (10:36)
[2022-12-30] MEDS ORDERED: HYDR-3923 PO ×2 (10:36)
[2022-12-30] MEDS ORDERED: FERR-74 PO (10:36)
[2022-12-30] MEDS: inSUlin ASPART (NovoLOG) 1 UNIT/0.01 ML (CHARGE PER UNIT) SQ SCH ×3 (10:47→21:04)
--- NOTE | 2022-12-30 13:41 | History & Physical-Hospitalist ---
History of Present Illness HPI/Chief Complaint Kristin Oneill is an 82 year old female with PMH HTN, HLD, AFib, recent intraventricular hemorrhage, who presented with shortness of breath. She was recently discharged from the hospital after a fall resulted in intracranial bleeding. Her blood thinners were stopped at that time. She reports that she also had some kidney issues and her diuretic was stopped. She denies cough. She denies fevers and chills. She denies chest pain. She denies nausea, vomiting, and abdominal pain. She has had leg swelling. Source: patient Exam Limitations: no limitations Date Seen 12/30/22 Time Seen by a Provider: 11:25 Attending Physician Levi Cline MD PCP Admitting Physician: Juan Aguila MD Attending Physician: Juan Aguila MD Referring Physician Date of Admission Dec 30, 2022 at 03:45 Home Medications & Allergies Home Medications Reviewed patient Home Medication Reconciliation performed by pharmacy medication reconciliations crystal growing technician and/or nursing. Patients Allergies have been reviewed. Allergies Allergies Coded Allergies No Known Drug Allergies (Unverified05/05/22) Past Xasprls-Wnzyvj-Mbmfon Hx Patient Social History Tobacco Use?: No Smoking Status: Never a Smoker Use of E-Cig and/or Vaping dev: No Substance use?: No Alcohol Use?: No Pt feels they are or have been: No Immunizations Up To Date Date of Influenza Vaccine: Aug 28, 2017 First/Initial COVID19 Vaccinat: 2020 Second COVID19 Vaccination Alexis: 2020 Tetanus Booster (TDap): Unknown Date of Pneumonia Vaccine: Aug 26, 2016 Seasonal Allergies Seasonal Allergies: No Current Status status: No status: No Advance Directives: No Communicates: Verbally Primary Language: Andorran Preferred Spoken Language: Andorran Is interpretation needed?: No Past Medical History Surgeries: Eye Surgery, Gallbladder Sleep Apnea Currently Using CPAP: Yes Currently Using BIPAP: No Atrial Fibrillation, High Cholesterol, Hypertension Neuropathy, Stroke, TIA, Traumatic Brain Injury 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 FUNES -BILATERAL CATARACT SURGERY -EGD/COLONOSCOPY 09/06/[address] 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 SYMPTOMS OF EXPRESSIVE APHASIA, FACIAL DROOP AND DYSPHAGIA RESOLVED. Review of Systems Constitutional: no symptoms reported EENTM: no symptoms reported Respiratory: short of breath Cardiovascular: no symptoms reported Gastrointestinal: no symptoms reported Physical Exam Physical Exam Vital Signs Vital Signs - First Documented 12/30/22 12/30/22 02:32 05:45 Temp 35.9 Pulse 104 Resp 30 B/P (MAP) 178/79 (112) Pulse Ox 95 O2 Delivery NIV CPAP O2 Flow Rate 5.00 FiO2 40 Capillary Refill : Less Than 3 Seconds Height, Weight, BMI Height: 5'0.00" Weight: 158lbs. 0.0oz. [id number]; 31.30 BMI Method:Stated General Appearance: No Apparent Distress, Obese HEENT: PERRL/EOMI, Pharynx Normal Neck: Normal Inspection, Supple Respiratory: Lungs Clear, Normal Breath Sounds, No Respiratory Distress Cardiovascular: Regular Rate, Rhythm, No Murmur Gastrointestinal: Normal Bowel Sounds, Non Tender, Soft Extremity: Normal Inspection, Pedal Edema Neurologic/Psychiatric: Alert, Normal Mood/Affect Skin: Normal Color, Warm/Dry Results Results/Procedures Labs Laboratory Tests 12/30/22 02:43 12/30/22 05:51 Patient resulted labs reviewed. Imaging: Reviewed Imaging Films, Reviewed Imaging Report Assessment/Plan Admission Diagnosis Acute on chroni HFpEF Admission Status: Inpatient Order (span 2 midnights) Reason for Inpatient Admission: Respiratory failure Assessment and Plan Acute on chronic HFpEF Acute on chronic respiratory failure with hypoxia Bilateral pleural effusions Chest imaging with pulmonary edema, pleural effusions, no PE or infiltrate Requiring BiPAP initially, now on nasal cannula, wean as able Received IV Lasix, responded well, plan for second dose today Cardiology consulted, case discussed with Dr Quintero Transfer to medical floor Recent intraventricular hemorrhage CT head with minimal intraventricular hemorrhage Holding all blood thinners Anemia Hgb 9.7, stable Monitor HTN HLD AFib Continue home meds DVT prophylaxis: held due to recent intracranial bleeding, SCDs only Diagnosis/Problems Diagnosis/Problems (1) Acute on chronic heart failure with preserved ejection fraction (HFpEF) Status: Acute (2) Acute respiratory failure with hypoxia Status: Acute (3) Bilateral pleural effusion Status: Acute (4) Afib Status: Chronic (5) HLD (hyperlipidemia) Status: Chronic (6) HTN (hypertension) Status: Chronic (7) Anemia Status: Acute (8) Intraventricular hemorrhage Status: Chronic JUAN AGUILA MD Dec 30, 2022 13:41
[2022-12-30] MEDS ORDERED: CALCIUM CARBONATE 500 MG (TUMS) TAB.CHEW PO PRN (21:15)
[2022-12-30] MEDS ORDERED: ONDANSETRON 4 MG (ZOFRAN) ORAL DISSOLVE TAB PO PRN (21:15)
[2022-12-30] MEDS ORDERED: LACTULOSE SYRUP 10GM/15ML (ENULOSE) 30ML UDC PO PRN (21:15)
[2022-12-30] MEDS ORDERED: MILK OF MAGNESIA 400 MG/5 ML 30 ML UDC PO PRN (21:15)
[2022-12-30] MEDS ORDERED: ACETAMINOPHEN 325 MG TABLET PO PRN (21:15)
[2022-12-30] MEDS ORDERED: ONDANSETRON 4 MG/2 ML (SDV) Z0FRAN IV PRN (21:15)
[2022-12-30] MEDS ORDERED: BISACODYL 10 MG SUPP (DULCOLAX) PR PRN (21:15)
[2022-12-30] MEDS ORDERED: MELATONIN 3 MG TABLET PO PRN (21:15)
[2022-12-30] MEDS ORDERED: polyethylene glycoL POWDER 17 GM (MIRALAX) PACK PO PRN (21:15)
[2022-12-30] MEDS ORDERED: ANTACID SUSP 30 ML UDC (MYLANTA) PO PRN (21:15)
[2022-12-30 23:39] VITALS: BP 153/68
[2022-12-31 03:16] LABS: POTASSIUM 3.9 MMOL/L (3.6-5.0)
[2022-12-31 03:17] LABS: CALCIUM 8.8 MG/DL (8.5-10.1)
[2022-12-31 03:21] LABS: CREATININE SERUM 1.24 MG/DL (0.60-1.30); PHOSPHORUS 3.2 MG/DL (2.3-4.7)
[2022-12-31 03:23] LABS: MAGNESIUM 1.9 MG/DL (1.6-2.4)
[2022-12-31] MEDS: NITROGLYCERIN 2% OINT 1 GM UNIT DOSE PACKET TOP SCH ×2 (03:47→08:48)
[2022-12-31 03:48] VITALS: BP 122/66
[2022-12-31] MEDS: CATHETER FLUSH 10 ML SYR IVP SCH ×2 (05:32→05:56)
[2022-12-31 05:48] LABS: BASOPHILS % (AUTO) 0 % (0-10); EOSINOPHILS % (AUTO) 0 % (0-10); HEMATOCRIT 26 % (35-52); HEMOGLOBIN 8.6 g/dL (11.5-16.0); LYMPHOCYTES # (AUTO) 2.1 10^3/uL (1.0-4.0); LYMPHOCYTES % (AUTO) 15 % (12-44); MEAN CORPUSCULAR HEMOGLOBIN 29 pg (25-34); MEAN CORPUSCULAR HGB CONC 33 g/dL (32-36); MEAN CORPUSCULAR VOLUME 89 fL (80-99); MEAN PLATELET VOLUME 9.7 fL (9.0-12.2); MONOCYTES # (AUTO) 1.9 10^3/uL (0.0-1.0); MONOCYTES % (AUTO) 13 % (0-12); NEUTROPHILS # (AUTO) 10.4 10^3/uL (1.8-7.8); NEUTROPHILS % (AUTO) 72 % (42-75); PLATELET COUNT 230 10^3/uL (130-400); WHITE BLOOD COUNT 14.5 10^3/uL (4.3-11.0)
[2022-12-31] MEDS: inSUlin ASPART (NovoLOG) 1 UNIT/0.01 ML (CHARGE PER UNIT) SQ SCH (05:53)
[2022-12-31] MEDS ORDERED: MAGNESIUM 1 GM/100 ML IVPB 100 ML IV SCH ×2 (06:00)
[2022-12-31] MEDS ORDERED: KCL 20 MEQ TAB (K-DUR) PO SCH ×2 (06:00)
[2022-12-31] MEDS ORDERED: POTASSIUM CL 10MEQ/50ML IVPB 50 ML IV SCH ×2 (06:00)
[2022-12-31 06:24] LABS: ALBUMIN 3.5 GM/DL (3.2-4.5); BILIRUBIN,TOTAL 0.9 MG/DL (0.1-1.0); CALCIUM 8.8 MG/DL (8.5-10.1); CREATININE SERUM 1.17 MG/DL (0.60-1.30); MAGNESIUM 2.7 MG/DL (1.6-2.4); PHOSPHORUS 3.3 MG/DL (2.3-4.7); POTASSIUM 3.6 MMOL/L (3.6-5.0); TOTAL PROTEIN 6.4 GM/DL (6.4-8.2)
[2022-12-31 06:36] LABS: LYMPHOCYTES % (MANUAL) 18 %; MONOCYTES % (MANUAL) 13 %; NEUTROPHILS % (MANUAL) 69 %
[2022-12-31 06:37] LABS: POLYCHROMASIA SLIGHT
[2022-12-31] MEDS ORDERED: PANTOPRAZOLE 40 MG (PROTONIX) TAB PO SCH (07:00)
[2022-12-31 07:09] VITALS: BP 131/61
[2022-12-31] MEDS ORDERED: FUROSEMIDE 40 MG/4 ML INJ (LASIX) IVP SCH (09:00)
[2022-12-31] MEDS ORDERED: hydrALAZINE (APRESOLINE) 25 MG TAB PO SCH ×2 (09:00→21:00)
[2022-12-31] MEDS ORDERED: amLODIPine 10 MG (NORVASC) TAB PO SCH (09:00)
[2022-12-31] MEDS ORDERED: KCL 10 MEQ TAB (MICRO K) PO SCH (09:00)
[2022-12-31] MEDS ORDERED: DOCUSATE SODIUM 100 MG (COLACE) CAP PO SCH ×2 (09:00)
[2022-12-31] MEDS ORDERED: FUROSEMIDE 20 MG (LASIX) TAB PO SCH (09:00)
[2022-12-31] MEDS ORDERED: AMITRIPTYLINE 10 MG (ELAVIL) TAB PO SCH (09:00)
[2022-12-31] MEDS ORDERED: SENNOSIDES 8.6 MG (SENOKOT) TAB PO SCH (09:00)
[2022-12-31] MEDS ORDERED: FURO20TA4 PO (11:19)
[2022-12-31] MEDS ORDERED: POTA-160 PO (11:19)
--- NOTE | 2022-12-31 11:23 | Discharge Summary ---
Discharge Summary Hospital Course Problems/Dx: (1) Acute on chronic heart failure with preserved ejection fraction (HFpEF) Status: Acute (2) Acute respiratory failure with hypoxia Status: Acute (3) Bilateral pleural effusion Status: Acute (4) Afib Status: Chronic (5) HLD (hyperlipidemia) Status: Chronic (6) HTN (hypertension) Status: Chronic (7) Anemia Status: Acute (8) Intraventricular hemorrhage Status: Chronic Hospital Course Date of Admission: Dec 30, 2022 at 03:45 Admission Diagnosis : Acute on chronic HFpEF Family Physician/Provider: Levi Cline MD Date of Discharge: 12/31/22 Discharge Diagnosis: Acute on chronic HFpEF Hospital Course: Kristin Oneill is an 82 year old female with H Labs and Pending Lab Test: Laboratory Tests 12/30/22 15:55: Glucometer 187H 12/30/22 20:05: Glucometer 170H 12/31/22 03:00: Sodium Level 139, Potassium Level 3.9, Chloride Level 104, Carbon Dioxide Level 23, Anion Gap 12, Blood Urea Nitrogen 20H, Creatinine 1.24, Estimat Glomerular Filtration Rate 43, BUN/Creatinine Ratio 16, Glucose Level 111H, Calcium Level 8.8, Phosphorus Level 3.2, Magnesium Level 1.9 12/31/22 05:32: Sodium Level 138, Potassium Level 3.6, Chloride Level 104, Carbon Dioxide Level 22, Anion Gap 12, Blood Urea Nitrogen 22H, Creatinine 1.17, Estimat Glomerular Filtration Rate 46, BUN/Creatinine Ratio 19, Glucose Level 115H, Calcium Level 8.8, Phosphorus Level 3.3, Magnesium Level 2.7H, White Blood Count 14.5H, Red Blood Count 2.94L, Hemoglobin 8.6L, Hematocrit 26L, Mean Corpuscular Volume 89, Mean Corpuscular Hemoglobin 29, Mean Corpuscular Hemoglobin Concent 33, Red Cell Distribution Width 17.2H, Platelet Count 230, Mean Platelet Volume 9.7, Immature Granulocyte % (Auto) 1, Neutrophils (%) (Auto) 72, Lymphocytes (%) (Auto) 15, M onocytes (%) (Auto) 13H, Eosinophils (%) (Auto) 0, Basophils (%) (Auto) 0, Neutrophils # (Auto) 10.4H, Lymphocytes # (Auto) 2.1, Monocytes # (Auto) 1.9H, Eosinophils # (Auto) 0.0, Basophils # (Auto) 0.0, Immature Granulocyte # (Auto) 0.1, Neutrophils % (Manual) 69, Lymphocytes % (Manual) 18, Monocytes % (Manual) 13, Polychromasia SLIGHT, Corrected Calcium 9.2, Total Bilirubin 0.9, Aspartate Amino Transf (AST/SGOT) 18, Alanine Aminotransferase (ALT/SGPT) 15, Alkaline Phosphatase 57, Total Protein 6.4, Albumin 3.5 12/31/22 05:51: Glucometer 117H Microbiology 12/30/22 MRSA Screen - Final, Complete MRSA not isolated Home Meds Active Furosemide 20 Mg Tablet 20 Mg PO DAILY 30 Days Klor-Con 10 (Potassium Chloride) 10 Meq Tablet.er 10 Meq PO DAILY 30 Days Reported Hydralazine HCl 25 Mg Tablet 25 Mg PO HS Hydralazine HCl 25 Mg Tablet 50 Mg PO DAILY Ferrous Sulfate 325 Mg (65 Mg Iron) Tablet 325 Mg PO DAILY Docusate Sodium 100 Mg Capsule 100 Mg PO BID Fish Ntt-[place]giey-3-Vit D Softgel ([place]-3S/Dha/Epa/Fish Oil/D3) 300 Mg-60 Mg-1,200 Mg-1,000 Unit Capsule 1 Each PO DAILY Aspir 81 (Aspirin) 81 Mg Tablet.dr 81 Mg PO DAILY Eliquis (Apixaban) 5 Mg Tablet 5 Mg PO BID Amlodipine Besylate 10 Mg Tablet 5 Mg PO DAILY Potassium Chloride 10 Meq Capsule.er 10 Meq PO DAILY Metoprolol Succinate 50 Mg Tab.er.24h 25 Mg PO DAILY Centrum Silver Tablet (Multivit-Min/FA/Lycopene/Lut) 0.4 Mg-300 Mcg-250 Mcg Tablet 1 Tab PO HS Glucosamine & Chondroitin Cap (Glucosa Solitario 2Kcl/Chondroitin Solitario) 500 Mg-400 Mg Capsule 1 Cap PO HS Calcium 500 + D Tablet (Calcium Carbonate/Vitamin D3) 500 Mg Calcium-10 Mcg (400 Unit) Tablet 1 Tab PO DAILY Acetaminophen Extra Strength (Acetaminophen) 500 Mg Tablet 500-1,000 Mg PO Q4H PRN Pantoprazole Sodium 40 Mg Tablet.dr 40 Mg PO DAILY Simvastatin 10 Mg Tablet 10 Mg PO HS Amitriptyline HCl 10 Mg Tablet 10 Mg PO BID Assessment/Pt Instructions See instructions Discharge Planning: >30 minutes discharge planning Discharge Instructions Discharge Diet: Low Sodium Diet Activity as Tolerated: Yes Consultations Cardiology Discharge Physical Examination Vital Signs Vital Signs Date Time Temp Pulse Resp B/P (MAP) Pulse Ox O2 Delivery O2 Flow Rate FiO2 12/31/22 09:00 Room Air 12/31/22 07:09 37.1 76 18 131/61 (84) 94 12/31/22 03:24 21.00 12/30/22 05:45 40 General Appearance: No Apparent Distress, Obese Respiratory: Lungs Clear, No Respiratory Distress Cardiovascular: Regular Rate, Rhythm, No Murmur Gastrointestinal: Normal Bowel Sounds, Non Tender, Soft Extremity: Normal Inspection, Pedal Edema Skin: Normal Color, Warm/Dry Neurologic/Psychiatric: Alert, Oriented x3, No Motor/Sensory Deficits Allergies: Coded Allergies: No Known Drug Allergies (Unverified , 05/05/22) Discharge Summary Date of Admission Dec 30, 2022 at 03:45 Date of Discharge Discharge Date: Dec 31, 2022 Discharge Time: 12:00 Admission Diagnosis Acute on chronic HFpEF Consults/Procedures Consulations Cardiology Discharge Diagnosis Acute on chronic HFpEF Acute on chronic respiratory failure with hypoxia Bilateral pleural effusions Recent intraventricular hemorrhage Anemia HTN HLD AFib (1) Acute on chronic heart failure with preserved ejection fraction (HFpEF) Status: Acute (2) Acute respiratory failure with hypoxia Status: Acute (3) Bilateral pleural effusion Status: Acute (4) Afib Status: Chronic (5) HLD (hyperlipidemia) Status: Chronic (6) HTN (hypertension) Status: Chronic (7) Anemia Status: Acute (8) Intraventricular hemorrhage Status: Chronic Clinical Quality Measures DVT/VTE Risk/Contraindication: Contraindications-Pharm: Other *list below* Other: Recent intraventricular hemorrhage JUAN AGUILA MD Dec 31, 2022 11:23
--- NOTE | 2022-12-31 12:41 | Cardiology Progress Note ---
Subjective Date Seen by Provider: Dec 31, 2022 Time Seen by Provider: 12:00 Subjective/Events-last exam no acute events overnight. breathing improved Focused Exam Lactate Level 12/30/22 02:43: Lactic Acid Level 1.73 12/30/22 05:51: Lactic Acid Level 1.21 Objective-Cardiology Exam Last Set of Vital Signs Vital Signs 12/30/22 12/31/22 12/31/22 12/31/22 05:45 03:24 07:09 09:00 Temp 37.1 Pulse 76 Resp 18 B/P (MAP) 131/61 (84) Pulse Ox 94 O2 Delivery Room Air O2 Flow Rate 21.00 FiO2 40 I&O Intake and Output 12/30/22 23:59 Intake Total 960 ml Output Total 4430 ml Balance -3470 ml Intake Oral 960 ml Output Urine Total 4430 ml # Bowel Movements 1 Daily Weight Change No General: Alert, Oriented X3, No Acute Distress Neck: Supple, No JVD Lungs: Clear to Auscultation, Other (faint rales in R base) Heart: Regular Rate, Normal S1, Normal S2, No Murmurs Abdomen: Normal Bowel Sounds Extremities: No Edema Results Lab Laboratory Tests 12/31/22 03:00 12/31/22 05:32 A/P-Cardiology Assessment/Plan Acute on chronic HFpEF ## Bilateral pleural effusions- received laix IV yesterday with -3.5L out. Breathing improved - recommend d/c dyazide and transition to po lasix 20mg po QD and KCl 10mEq po QD - ok with discharge today Recent ICH: CT head with minimal intraventricular hemorrhage - cont to monitor ## HTN: systolics 120-150 - cont current regimen ARSH PERRIN MD Dec 31, 2022 12:41
[2023-01-01] MEDS ORDERED: FUROSEMIDE 20 MG (LASIX) TAB PO SCH (09:00)
[2023-01-01] MEDS ORDERED: KCL 10 MEQ TAB (MICRO K) PO SCH (09:00)
--- NOTE | 2023-01-03 14:40 | CONSULTATION REPORT ---
CHIEF COMPLAINT: Shortness of breath, bilateral lower extremity swelling. HISTORY OF PRESENT ILLNESS: The patient is an 82-year-old female with a history of atrial fibrillation, hypertension, TIA, obstructive sleep apnea, on CPAP, hyperlipidemia and recent fall with subsequent intracerebral hemorrhage on 12/17/2022 treated at [facility] without any surgical intervention, who presents for evaluation of shortness of breath and bilateral lower extremity edema. The patient states that she has been experiencing shortness of breath and bilateral lower extremity swelling over the past several days. She also notes some associated dizziness. She denies chest pain, cough, fevers, chills, nausea, vomiting, diarrhea or constipation. Recently, she was admitted on 12/17/2022 after a fall and found to have anterior cerebral hemorrhage for which she was sent to [place] for evaluation. She was seen by neurosurgical colleagues and was treated conservatively without any surgical intervention. Since that time, the patient states that she has done reasonably well except for the insidious onset of bilateral lower extremity edema and shortness of breath. In that setting, she came in to be evaluated. She is found to have labs notable for creatinine of 1.0, potassium of 3.2, hemoglobin of 9.7. D-dimer 1.63. Lactate of 1.2. Troponin I of 0.049. She recently had an echocardiogram on 12/30/2022 which demonstrates an EF of 60%, normal LV, RV function and associated elevated pulmonary arterial systolic pressures of 53 mmHg. REVIEW OF SYSTEMS: All systems were reviewed and are negative except for what has been described in HPI. PAST MEDICAL HISTORY: Atrial fibrillation, hypertension, TIA, obstructive sleep apnea, on CPAP, hyperlipidemia, GERD, recent intracerebral hemorrhage, now off of Eliquis and aspirin. CURRENT MEDICATIONS: Potassium chloride, magnesium sulfate, potassium chloride 40 mEq p.o. daily, sliding scale insulin with aspart, nitro 1 inch q.6 hours., Lasix 40 mg IV x1, Solu-Medrol 125 x1, DuoNebs x1. ALLERGIES: No known drug allergies. SOCIAL HISTORY: No tobacco, drugs or ETOH use. FAMILY HISTORY: Reviewed and is noncontributory. PHYSICAL EXAMINATION: GENERAL: She is in no acute distress. She is resting comfortably in the bed. NECK: Soft and supple. No cervical lymphadenopathy or thyromegaly. LUNGS: Diminished in the bilateral bases, but otherwise clear. No wheezing, rales or rhonchi are noted. ABDOMEN: Positive bowel sounds, obese, soft, nontender, nondistended, no hepatosplenomegaly. CARDIOVASCULAR: Normal S1, S2. No gallops or rubs. Soft systolic murmur is noted. Two out of 6 along the left sternal border. EXTREMITIES: Warm and well perfused. She has no cyanosis, clubbing. She has a 2/6 bilateral lower extremity edema. LABORATORY DATA: Labs and imaging are significant for an ABG of 7.42/37/77. UA demonstrated 25-50 red blood cells, trace bacteria, no nitrite or leukocyte esterase. INR 0.9. D-dimer is 1.63. White blood cell count of 11.1, hematocrit of 30, platelets of 225. Flu A and B are negative. COVID is negative. Lactate is 1.2. LFTs within normal limits.: T-max 35.9, heart rate 70s-104, respiratory rate 13 and 30, blood pressure 130-170/60-70, satting greater than 95% on 2.5 liters nasal cannula. ASSESSMENT AND PLAN: The patient is an 84-year-old female with multiple medical problems including atrial fibrillation, hypertension, TIA, hyperlipidemia, GERD, obstructive sleep apnea, on CPAP, intracerebral hemorrhage after recent fall. Now holding Eliquis and aspirin, who presents for evaluation of increasing lower extremity edema and shortness of breath. 1. ICH, currently conservative management, holding Eliquis and aspirin. We will defer to Neurosurgery as to when to restart these medications. History of shortness of breath. The patient underwent a CT scan, which demonstrated no pulmonary edema. No pulmonary embolus, but large effusions bilaterally were noted. Chest x-ray is consistent with edema. Other etiologies to consider include atypical infection versus pneumonitis. For now, recommend continuing diuresis, Lasix 40 mg IV daily for now. Monitor K greater than 4 and magnesium greater than 2. We will fluid restrict her at 1.5 liters. Check a BNP. ECHO performed and described as noted above. 2. NSTEMI, likely demand ischemia in the setting of heart failure. We will follow up troponin and continue to monitor. The patient is not a good candidate for any form of intervention, particularly given her recent ICH. May want to consider a stress test as an outpatient and subsequent therapy once cleared from a neurosurgical standpoint. 3. Hypertension. Blood pressures are stable. We will restart her home blood pressures as we move forward in her hospitalization. 4. CVA. We will need to restart her home statin. 5. Disposition: We will continue to monitor for now. Diuresis, fluid restriction and further recommendations to be advanced, pending the patient course. Thank you very much for allowing me to participate in her care. Job ID: [id number] DocumentID: [id number] Dictated Date: 12/30/2022 13:56:00 High Speed Operator Date: 12/30/2022 14:58:00 Dictated By: ARSH PERRIN MD
== END 2022-12-31 12:55 | disposition home or self-care (01) | DRG 291 ==
LOC: EDUNIT# 02:30 → ER 02:32 → ICU 03:45 → 4TH 12:42
PROVIDERS: ADMIT Internal Medicine; ATTEND Internal Medicine
PROC: 5A09357 Assistance with Respiratory Ventilation, Less than 24 Consecutive Hours, Continuous Positive Airway Pressure (ICD-10-PCS; principal; 2022-12-30)
DX: I11.0 Hypertensive heart disease with heart failure (principal); I50.33 Acute on chronic diastolic (congestive) heart failure; J96.21 Acute and chronic respiratory failure with hypoxia; I48.20 Chronic atrial fibrillation, unspecified; D64.9 Anemia, unspecified; E78.00 Pure hypercholesterolemia, unspecified; Z86.73 Personal history of transient ischemic attack (TIA), and cerebral infarction without residual deficits; G62.9 Polyneuropathy, unspecified; K21.9 Gastro-esophageal reflux disease without esophagitis; M19.90 Unspecified osteoarthritis, unspecified site; F41.9 Anxiety disorder, unspecified; G47.33 Obstructive sleep apnea (adult) (pediatric); Z79.82 Long term (current) use of aspirin; Z79.899 Other long term (current) drug therapy; Z20.822 Contact with and (suspected) exposure to COVID-19; R73.9 Hyperglycemia, unspecified
CPT/HCPCS: 36415; 51702; 70450; 71045; 71275; 80048; 80053; 81000; 82550; 82553; 82805; 82947; 83605; 83735; 83874; 83880; 84100; 84145; 84484; 85007; 85025; 85027; 85379; 85610; 85652; 85730; 86141; 87040; 87081; 87636; 93005; 93041; 93306; 94640; 94660; G0378

== ENCOUNTER 2023-01-10 06:06 | Outpatient (CLI) | payer MEDICARE ==
[~2023-01-10] VITALS: Ht 152.4 cm; Wt 69.9 kg
[~2023-01-10 06:06] MED LIST changes: +DOCU100C37 PO; +FERR-74 PO; +FURO20TA4 PO; +HYDR-3923 PO; +POTA-160 PO
[2023-01-10] MEDS ORDERED: TRIA1TAB5 PO (09:01)
[2023-01-10] MEDS ORDERED: LOSA50TA63 PO (09:01)
== END 2023-01-10 09:19 | disposition home or self-care (01) ==
LOC: PREOP 06:06
PROVIDERS: ATTEND Surgery
DX: Z01.818 Encounter for other preprocedural examination (principal)

== ENCOUNTER 2023-01-17 13:18 | Day surgery (SDC) | payer MEDICARE ==
[~2023-01-17] VITALS: Ht 152.4 cm; Wt 69.9 kg
[2023-01-17] MEDS ORDERED: LIDOCAINE JELLY 2% 6 ML SYRINGE ONE (14:04)
[2023-01-17] MEDS ORDERED: LACTATED RINGERS 1,000 ML IV STA (14:13)
--- NOTE | 2023-01-17 14:13 | Progress Note-Pre Operative ---
Pre-Operative Progress Note Date of Available H&P: Jan 17, 2023 Date H&P Reviewed: Jan 17, 2023 Time H&P Reviewed: 14:00 History & Physical: No changes noted Pre-Operative Diagnosis: anemia DWAIN FUNES MD Jan 17, 2023 14:12
[2023-01-17] MEDS ORDERED: OMEP40CA6 PO (14:14)
--- NOTE | 2023-01-17 14:14 | Discharge Inst-Surgical ---
D/C Lap Instructions-MARIN Follow Up Activity as tolerated High Fiber Diet 25g or more per day Avoid Alcohol, Caffeine, Spicy [place] and Acid foods. Drink 64 fluid oz or more of fluids per day. Symptoms to Report: Fever over 101 degree F, Nausea/Vomiting If any problems/questions: Contact your physician or go to Emergency Room DWAIN FUNES MD Jan 17, 2023 14:14
[2023-01-17] MEDS ORDERED: HURRICAINE EXT TUBE (BENZOCAINE) XX PRN (14:15)
[2023-01-17] MEDS ORDERED: ONDANSETRON 4 MG/2 ML (SDV) Z0FRAN IVP PRN (14:15)
[2023-01-17] MEDS ORDERED: LIDOCAINE JELLY 2% 6 ML SYRINGE MM PRN (14:15)
[2023-01-17] MEDS ORDERED: ONDANSETRON 4 MG (ZOFRAN) ORAL DISSOLVE TAB PO PRN (14:15)
[2023-01-17 14:21] VITALS: BP 140/58
[2023-01-17] MEDS ORDERED: PROPOFOL INJECTION 50 ML IV ONE (14:50)
[2023-01-17 15:45] VITALS: BP 125/60
--- NOTE | 2023-01-17 15:48 | Anesthesia-General Post-Op ---
MAC Patient Condition Mental Status/LOC: Same as Preop Cardiovascular: Satisfactory Nausea/Vomiting: Absent Respiratory: Satisfactory Pain: Controlled Complications: Absent Post Op Complications Complications None Follow Up Care/Instructions Patient Instructions None needed. Anesthesiology Discharge Order Discharge Order Patient is doing well, no complaints, stable vital signs, no apparent adverse anesthesia problems. No complications reported per nursing. JOEL RODRIGUEZ CRNA Jan 17, 2023 15:48
[2023-01-17 15:50] VITALS: BP 134/64
[2023-01-17 15:55] VITALS: BP 121/59
[2023-01-17 16:00] VITALS: BP 121/59
--- NOTE | 2023-01-17 16:15 | Progress Note-Post Operative ---
Post-Operative Progess Note Surgeon (s)/Cold Molding Press Operator (s) Surgeon DWAIN FUNES MD Cold Molding Press Operator: none Pre-Operative Diagnosis anemia Post-Operative Diagnosis reflux esophagitis(grade B), small-mod HH(2.5cm), mod gastritis. mild chronic stage 2 ext and int hemorrhoids, 2 small polyps asc colon, sessile polyp dist cecum(1cm). Procedure & Operative Findings Date of Procedure 01/17/23 Procedure Performed/Findings EGD with bx. colonoscopy with bx. Anesthesia Type mac Estimated Blood Loss Estimated blood loss (mL): minimal Specimens/Packing Specimens Removed ge jxn, antrum, asc colon x2, cecum DWAIN FUNES MD Jan 17, 2023 16:15
[2023-01-17 16:23] VITALS: BP 121/59
--- NOTE | 2023-01-18 00:50 | OPERATIVE REPORT ---
DATE OF SERVICE: 01/17/2023 ATTENDING PRIMARY CARE PHYSICIAN: Levi Cline MD PREOPERATIVE DIAGNOSIS: Anemia. POSTOPERATIVE DIAGNOSES: Reflux esophagitis, Anthony grade B, small to moderate size hiatal hernia, 2.5 cm in size, moderate gastritis. No active bleed. Chronic stage II external and internal hemorrhoids. Two small polyps of the ascending colon, a sessile polyp of the cecum approximately 1 cm in size. PROCEDURE: EGD with biopsy, colonoscopy with polypectomy using biopsy forceps and cautery. SURGEON: Dwain Funes MD ANESTHESIA: Monitored anesthesia care. ESTIMATED BLOOD LOSS: Minimal. FINDINGS: Reflux esophagitis, Anthony grade B, small to moderate size hiatal hernia, 2.5 cm in size, moderate gastritis. No active bleed. Chronic stage II external and internal hemorrhoids. Two small polyps of the ascending colon, a sessile polyp of the cecum approximately 1 cm in size. DISPOSITION: The patient tolerated the procedure well. INDICATIONS: The patient is an 82-year-old female who was admitted to [facility] approximately 3 months ago due to what sounds to be a cerebral hemorrhage. No procedures were done and this appeared to have resolved without any neurologic deficits. She was found to be anemic with multiple laboratory work. She did have a colonoscopy and EGD in 2018 and does not recall any major abnormalities. She does not report any hematemesis, no coffee-ground emesis as well as no dark tarry stools or any red blood per rectum. She also does not report any family history of colon cancer. DESCRIPTION OF PROCEDURE: The patient was brought to the endoscopy suite and laid in the left lateral decubitus position. After adequate IV pain and sedative medications and monitored anesthesia care, the mouthpiece was applied. The endoscope was then placed in the mouth, visualizing the pharynx and hypopharyngeal region. Vocal cords, epiglottis and vallecula identified and appeared to be normal. The endoscope was then gently intubated into the esophageal opening and esophagus insufflated. The endoscope was then advanced through the first, second and third portions of the esophagus at the level of the GE junction, reflux esophagitis, Anthony grade B identified. No ulcers or strictures identified. A biopsy was taken of the GE junction with forceps with visualization of good hemostasis. The endoscope was then advanced into the stomach and endoscope retroflexed visualizing a small to moderate size hiatal hernia approximately 2.5 cm in size. There was a moderate severity gastritis. No formal ulcerations or any active bleeding sources. A biopsy was taken of the antrum to rule out H. pylori with visualization of good hemostasis. The endoscope was then advanced to the pylorus and the first and second portion of the duodenum, which appeared normal with no ulcerations or any bleeding sources. The endoscope was then slowly withdrawn while taking a second look and suctioning of residual air with no additional findings. A digital rectal examination was performed, which revealed mild chronic stage II external and internal hemorrhoids, not actively edematous nor inflamed and no bleeding. Normal sphincter tone was felt and there were no palpable masses. The endoscope was then intubated into the anus and the rectum gently insufflated. The endoscope was then advanced through the valves of Cummings of the rectum with no polyps or any neoplasms identified. We then proceeded through the sigmoid colon where no diverticulosis identified. The endoscope was then advanced to the remainder of the descending and transverse colon to the ascending colon. At the level of the ascending colon, two small polyps, both approximately 2-3 mm in size were identified and these were biopsied and destroyed with forceps and electrocautery. The endoscope was then advanced into the cecum and at the level of the distal cecum, a sessile polyp approximately 1 cm in size was identified. Multiple biopsies were taken using forceps and once this was complete, the forceps were used to cauterize the majority of the remaining portions of the polyp with visualization of good hemostasis. The endoscope was slowly withdrawn while taking a second look and suctioning of residual air with no additional findings. The patient tolerated the procedure well. We will recommend the necessary lifestyle and dietary accommodation including small and more frequent meals, avoidance of eating at night as well as head elevation while lying supine. Due to the findings of gastritis, we will start her on another PPI acid cleaning custodian for 3 months. We will also await the biopsy results; however, there is a possibility that the polyps have been a cause of slow blood loss over time. Due to the size of the polyp of the cecum, we will recommend a followup colonoscopy in approximately 6 months. Job ID: [id number] DocumentID: [id number] Dictated Date: 01/17/2023 15:59:02 Potato Chip Frier Date: 01/18/2023 00:48:00 Dictated By: DWAIN FUNES MD
== END 2023-01-17 16:55 | disposition home or self-care (01) ==
LOC: ENDO 13:18
PROVIDERS: ATTEND Surgery
DX: D12.2 Benign neoplasm of ascending colon (principal); D12.0 Benign neoplasm of cecum; K21.00 Gastro-esophageal reflux disease with esophagitis, without bleeding; K29.70 Gastritis, unspecified, without bleeding; K44.9 Diaphragmatic hernia without obstruction or gangrene; K64.1 Second degree hemorrhoids; K64.4 Residual hemorrhoidal skin tags; D64.9 Anemia, unspecified; Z79.899 Other long term (current) drug therapy

== ENCOUNTER → 2023-07-19 | Outpatient (CLI) | payer MEDICARE ==
[~2023-07-19] MED LIST changes: +OMEP40CA6 PO; -POTA10CA44 PO; +POTA10CA84 PO
--- NOTE | 2023-07-19 17:22 | Diagnostic Imaging Report ---
EXAMINATION: Lumbosacral spine, four views or more. HISTORY: Low back pain. COMPARISON: None available. FINDINGS: There is moderate anterolisthesis of L4 on L5. No pars defects are seen. There is moderate facet arthropathy at L4-L5. No acute fracture. There is mild disc height loss throughout the lumbar spine. It is most severe at L5-S1. IMPRESSION: Moderate anterolisthesis of L4 on L5 without pars defects seen. Dictated by: Dictated on workstation # [id number]
== END ==
LOC: RAD 13:41
PROVIDERS: ATTEND Internal Medicine
DX: M43.16 Spondylolisthesis, lumbar region (principal)
CPT/HCPCS: 72110